=== PATIENT | female | born 1935 | race Caucasian/White ===

== ENCOUNTER → 2016-09-24 | Outpatient (CLI) | payer OTHER ==
[~2016-09-24] MED LIST: ACET-1256 PO; CALCTAB7 PO; CARV3.122 PO; CEFD300C2 PO; CINN1CAP2 PO; CLTP PO; ESTCR PV; FERR325T5 PO; GABA-112 PO; GLC/500 PO; GLC500 PO; GLIP5TAB3 PO; LISI-787 PO; LPT10 PO; METR-162 PO; MULT-190 PO; MULTTAB45 PO; NAPR220T40 PO; OMEP20CA9 PO; PHEN-876 PO; PRLSR20 PO; TRAM-10 PO; TUMS PO; UNKNOWN B/P MED PO; [UNRECOGNIZED DRUG - OTHER] PO
[2016-09-24 12:48] LABS: HEMATOCRIT 31.3 % (37-47); MEAN CELL VOLUME 94.3 fL (80-100); MEAN CORPUSCULAR HEMOGLOBIN 30.7 pg (25-34); MEAN CORPUSCULAR HGB CONC 32.6 g/dl (32-36); MEAN PLATELET VOLUME 10.7 fL (7.4-10.4); PLATELET COUNT 197 K/uL (130-400); RED BLOOD COUNT 3.32 M/uL (4.2-5.4); WHITE BLOOD COUNT 6.65 K/uL (4.8-10.8)
[2016-09-24 13:28] LABS: BLOOD UREA NITROGEN 30 mg/dl (7-18); BUN/CREATININE RATIO 11.1 (10-20); CALCIUM 8.8 mg/dl (8.5-10.1); CARBON DIOXIDE 22 mmol/L (21-32); CHLORIDE 110 mmol/L (98-107); GLUCOSE 212 mg/dl (70-99); POTASSIUM 4.3 mmol/L (3.5-5.1); SODIUM 144 mmol/L (136-145)
[2016-09-24 13:29] LABS: PHOSPHORUS 3.6 mg/dl (2.5-4.9)
== END | disposition home or self-care (01) ==
LOC: C.LABBFT 07:34
PROVIDERS: ATTEND Internal Medicine Nephrology
DX: I12.9 Hypertensive chronic kidney disease with stage 1 through stage 4 chronic kidney disease, or unspecified chronic kidney disease (principal); E11.22 Type 2 diabetes mellitus with diabetic chronic kidney disease; N18.4 Chronic kidney disease, stage 4 (severe); D64.9 Anemia, unspecified; R80.9 Proteinuria, unspecified

== ENCOUNTER → 2016-12-10 | Outpatient (CLI) | payer OTHER ==
[~2016-12-10] MED LIST changes: -CARV3.122 PO; -GABA-112 PO; -LPT10 PO; -METR-162 PO; -TUMS PO
[2016-12-10 14:03] LABS: URINE APPEARANCE TURBID (CLEAR); URINE BILIRUBIN NEG (NEG); URINE COLOR YELLOW; URINE NITRITE NEG (NEG); URINE PH 5.5 (4.5-7.5); URINE SPECIFIC GRAVITY 1.015 (1.000-1.030); UROBILINOGEN NEG (NEG)
[2016-12-10 14:10] LABS: MANUAL MICROSCOPIC REQUIRED? NO; REVIEW REQ? YES
== END | disposition home or self-care (01) ==
LOC: C.LABSPEC 12:44
PROVIDERS: ATTEND Physician Assistant Medical
DX: R39.9 Unspecified symptoms and signs involving the genitourinary system (principal)

== ENCOUNTER → 2016-12-25 | Outpatient (CLI) | payer OTHER ==
[~2016-12-25] MED LIST changes: +CARV3.122 PO; +GABA-112 PO; +LPT10 PO; +METR-162 PO; +TUMS PO
[2016-12-25 13:23] LABS: ESTIMATED AVERAGE GLUCOSE 160 mg/dl; HA1C FLAG Normal (Normal)
== END | disposition home or self-care (01) ==
LOC: C.LABBFT 07:29
PROVIDERS: ATTEND Internal Medicine
DX: E11.9 Type 2 diabetes mellitus without complications (principal)

== ENCOUNTER → 2017-01-19 | Outpatient (CLI) | payer OTHER ==
[2017-01-19 12:22] LABS: HEMATOCRIT 36.6 % (37-47); MEAN CELL VOLUME 93.8 fL (80-100); MEAN CORPUSCULAR HEMOGLOBIN 29.7 pg (25-34); MEAN CORPUSCULAR HGB CONC 31.7 g/dl (32-36); MEAN PLATELET VOLUME 10.4 fL (7.4-10.4); PLATELET COUNT 230 K/uL (130-400); WHITE BLOOD COUNT 6.85 K/uL (4.8-10.8)
[2017-01-19 12:58] LABS: BLOOD UREA NITROGEN 35 mg/dl (7-18); BUN/CREATININE RATIO 13.6 (10-20); CARBON DIOXIDE 28 mmol/L (21-32); CHLORIDE 107 mmol/L (98-107); GLUCOSE 185 mg/dl (70-99); SODIUM 143 mmol/L (136-145)
[2017-01-19 12:59] LABS: PHOSPHORUS 3.1 mg/dl (2.5-4.9)
[2017-01-19 13:04] LABS: URINE PROTIEN/CREAT RATIO 0.5 (0-0.2); URINE TOTAL PROTEIN 21.8 mg/dl (0-11.9)
[2017-01-19 13:08] LABS: CALCIUM 9.7 mg/dl (8.5-10.1)
[2017-01-19 13:34] LABS: URINE APPEARANCE CLOUDY (CLEAR); URINE BILIRUBIN NEG (NEG); URINE COLOR YELLOW; URINE NITRITE NEG (NEG); URINE SPECIFIC GRAVITY 1.011 (1.000-1.030); UROBILINOGEN NEG (NEG)
[2017-01-19 13:41] LABS: MANUAL MICROSCOPIC REQUIRED? NO; REVIEW REQ? NO
== END | disposition home or self-care (01) ==
LOC: C.LABBFT 07:33
PROVIDERS: ATTEND Internal Medicine Nephrology
DX: I12.9 Hypertensive chronic kidney disease with stage 1 through stage 4 chronic kidney disease, or unspecified chronic kidney disease (principal); D64.9 Anemia, unspecified; N18.4 Chronic kidney disease, stage 4 (severe); R80.9 Proteinuria, unspecified

== ENCOUNTER → 2017-02-05 | Outpatient (CLI) | payer OTHER ==
[2017-02-05 14:05] LABS: URINE APPEARANCE CLOUDY (CLEAR); URINE BILIRUBIN NEG (NEG); URINE COLOR YELLOW; URINE EPITHELIAL CELL AUTO 20-30 /lpf (0-5); URINE NITRITE NEG (NEG); UROBILINOGEN NEG (NEG)
[2017-02-05 14:09] LABS: MANUAL MICROSCOPIC REQUIRED? NO; REVIEW REQ? NO
== END | disposition home or self-care (01) ==
LOC: C.LABSPEC 12:20
PROVIDERS: ATTEND Obstetrics & Gynecology
DX: R39.15 Urgency of urination (principal)

== ENCOUNTER → 2017-03-26 | Outpatient (CLI) | payer OTHER ==
[~2017-03-26] MED LIST changes: -CARV3.122 PO; -GABA-112 PO; -LPT10 PO; -METR-162 PO; -TUMS PO
[2017-03-26 13:13] LABS: URINE APPEARANCE TURBID (CLEAR); URINE BILIRUBIN NEG (NEG); URINE COLOR YELLOW; URINE EPITHELIAL CELL AUTO 20-30 /lpf (0-5); URINE NITRITE NEG (NEG); URINE PH 5.5 (4.5-7.5); URINE SPECIFIC GRAVITY 1.018 (1.000-1.030); UROBILINOGEN NEG (NEG)
[2017-03-26 13:25] LABS: MANUAL MICROSCOPIC REQUIRED? NO; REVIEW REQ? NO
== END | disposition home or self-care (01) ==
LOC: C.LABSPEC 12:27
PROVIDERS: ATTEND Internal Medicine
DX: R39.9 Unspecified symptoms and signs involving the genitourinary system (principal)

== ENCOUNTER → 2017-04-10 | Outpatient (CLI) | payer OTHER ==
--- NOTE | 2017-04-10 12:19 | MAMMOGRAPHY REPORT ---
BILATERAL DIGITAL SCREENING MAMMOGRAM WITH CAD: 04/10/2017 CLINICAL HISTORY: Routine screening. Patient has no complaints. TECHNIQUE: Bilateral CC and MLO views were obtained. Current study was also evaluated with a Compute r Aided Detection (CAD) system. COMPARISON: Comparison is made to exams dated: 04/08/2016 mammogram, 04/05/2015 mammogram, 04/07/2014 m ammogram, 04/03/2014 mammogram, 03/31/2013 mammogram, and 03/25/2012 mammogram - [facility]ter. BREAST COMPOSITION: There are scattered areas of fibroglandular density in both breasts. FINDINGS: There is a stable benign coarse calcification in the right breast. No suspicious mass, arc hitectural distortion or cluster of microcalcifications is seen. IMPRESSION: ACR BI-RADS CATEGORY 1: NEGATIVE There is no mammographic evidence of malignancy. A 1 year screening mammogram is recommended. The pa tient will receive written notification of the results. Approximately 10% of breast cancers are not detected with mammography. A negative mammographic report should not delay biopsy if a clinically suggestive mass is present. Farheen Sandoval M.D. ay/:04/10/2017 08:25:11 Torch Straightener: Ana LLANOS(R)(M), [facility] letter sent: Normal 1/2 BI-RADS Code: ACR BI-RADS Category 1: Negative
== END | disposition home or self-care (01) ==
LOC: C.MAMM 07:17
PROVIDERS: ATTEND Internal Medicine
DX: Z12.31 Encounter for screening mammogram for malignant neoplasm of breast (principal)

== ENCOUNTER 2017-04-12 21:06 | Emergency (ER) | payer OTHER ==
[~2017-04-12] VITALS: Ht 170.2 cm; Wt 69.0 kg
[~2017-04-12 21:06] MED LIST changes: -ACET-1256 PO; -CALCTAB7 PO; -CEFD300C2 PO; -GLC/500 PO; -MULT-190 PO; -OMEP20CA9 PO; -PHEN-876 PO; -UNKNOWN B/P MED PO
[2017-04-12 21:11] VITALS: TEMP 36.6; Ht 170.2 cm; Wt 69.0 kg
[2017-04-12] MEDS ORDERED: PHENAZOPYRIDINE HCL 200 MG TAB PO STA (21:13)
[2017-04-12] MEDS ORDERED: ACETAMINOPHEN 500 MG TAB PO STA (21:17)
--- NOTE | 2017-04-12 21:25 | EMERGENCY ROOM VISIT NOTE ---
History Report prepared by Janell: Mu Sparks Under the Supervision of: Dr. Bob George M.D. First contact with patient: 21:12 Chief Complaint: URINARY SYMPTOMS Stated Complaint: URGENCY TO URINATE - BURNING History of Present Illness The patient is an 82 year old female who presents to the Emergency Room with complaints of worsening burning with urination. The patient states that she has been experiencing urinary symptoms for the past month, but notes that it has significantly worsened over the past five days. The patient was diagnosed with a urinary tract infection on March 26 and was given a 5 day prescription of Ciprofloxacin. There was relief during the course of the antibiotic. She started to experience the burning again shortly after the prescription was finished. She denies any associated back pains, fevers, or vomiting. The patient has a history of a prolapsed bladder. Source of History: patient Onset: 5 days (worsening) Position: other (Genitorurinary) Quality: burning Timing: worsening Associated Symptoms: No vomiting, No back pain Review of Systems See HPI for pertinent positives & negatives. A total of 10 systems reviewed and were otherwise negative. Past Medical & Surgical Medical Problems: (1) Hypertension Diabetes Hypertension Family History Cancer Social History Alcohol Use: none Drug Use: none Housing Status: lives alone Occupation Status: retired Current/Historical Medications Scheduled Acetaminophen (Tylenol), 500-1,000 MG PO QAM Calcium Carbonate-Vitamin D W/ (Caltrate 600 Plus), 1 TAB PO DAILY Cefdinir (Omnicef), 300 MG PO Q12H Ferrous Sulfate (Ferrous Sulfate), 1 TAB PO BID Glipizide (Glucotrol), 10 MG PO BID Metformin Hcl (Glucophage), 500 MG PO DAILY Multiple Vitamin (Multiple Vitamin), 1 TAB PO DAILY Ocuvite Preservision (Ocuvite Preservision), 1 TAB PO BID Omeprazole (Prilosec), 20 MG PO DAILY [Unknown B/P Med], 5 MG PO DAILY Scheduled PRN Phenazopyridine HCl (Pyridium), 200 MG PO TID PRN for Frequency/Burning w/ Urination Tramadol (Ultram), 50 MG PO Q12 PRN for Pain Allergies Coded Allergies: Cephalexin (Verified Allergy, Mild, DIARRHEA, 04/12/17) Physical Exam Vital Signs Date Time Temp Pulse Resp B/P (MAP) Pulse Ox O2 Delivery O2 Flow Rate FiO2 04/12/17 22:29 83 16 156/93 95 Room Air 04/12/17 21:11 36.6 78 18 213/107 96 Room Air Physical Exam GENERAL: Patient is in no acute distress. HEENT: No acute trauma, normocephalic atraumatic, mucous membranes moist, no nasal congestion, no scleral icterus. NECK: No stridor, no adenopathy, no meningismus, trachea is midline. LUNGS: Clear to auscultation bilaterally, no wheeze, no rhonchi, breath sounds equal. HEART: Without murmurs gallops or rubs, regular rate and rhythm. ABDOMEN: Soft, Mildly tender over the bladder, no obvious bladder distention, bowel sounds positive, no hernias, no peritonitis. BACK: No flank discomfort to percussion. EXTREMITIES: No cyanosis or edema, full range of motion of all the joints without pain or difficulty, no signs for acute trauma. NEUROLOGIC: Oriented x 3, no acute motor or sensory deficits, no focal weakness. SKIN: No rash, no jaundice, no diaphoresis. Medical Decision & Procedures ER Provider Diagnostic Interpretation: URINARY SPECIMEN DIP: Urine dip was positive for nitrates, leukocytes, and blood. Consistent with a urinary tract infection. BLADDER SCAN: Bladder Scan reveals 175 mL. Consistent with mild retention. Laboratory Results Test 04/12/17 21:20 Urine Color DK YELLOW Urine Appearance TURBID (CLEAR) Urine pH 6.5 (4.5-7.5) Urine Specific [place]pton 1.014 (1.000-1.030) Urine Protein 2+ (NEG) Urine Glucose (UA) NEG (NEG) Urine Ketones NEG (NEG) Urine Occult Blood 2+ (NEG) Urine Nitrite POS (NEG) Urine Bilirubin NEG (NEG) Urine Urobilinogen NEG (NEG) Urine Leukocyte Esterase LARGE (NEG) Urine WBC (Auto) >30 /hpf (0-5) Urine RBC (Auto) 10-30 /hpf (0-4) Urine Hyaline Casts (Auto) /lpf (0-5) Urine Epithelial Cells (Auto) 10-20 /lpf (0-5) Urine Bacteria (Auto) 4+ (NEG) Urine Pathogenic Casts /lpf (0) Urine Yeast (Auto) (NONE PRSENT) Laboratory results reviewed by me. Medications Administered Medications (Trade) Dose Ordered Sig/Taryn Route Start Time Stop Time Status Last Admin Dose Admin Phenazopyridine HCl (Pyridium Tab) 200 mg NOW STAT PO 04/12/17 21:13 04/12/17 21:16 DC 04/12/17 21:37 200 MG Acetaminophen (Tylenol Tab) 1,000 mg NOW STAT PO 04/12/17 21:17 04/12/17 21:19 DC 04/12/17 21:37 1,000 MG Ceftriaxone Sodium (Rocephin Im) 500 mg NOW ONCE IM 04/12/17 21:30 04/12/17 21:31 DC 04/12/17 21:38 500 MG ED Course 2113: The patient was evaluated in room C12. A complete history and physical exam was performed. 2112: Ordered Pyridium 200 mg PO. 2116: Ordered Tylenol 1000 mg PO. 2129: Ordered Rocephin 500 mg IM. 2343: Reevaluated the patient. Discussed results and discharge instructions: She verbalized understanding and agreement. The patient is ready for discharge. Medical Decision Differential Diagnosis includes; Bladder infection, pyelonephritis, urinary retention, diverticulitis, failed outpatient treatment, dysuria The patient presents with urinary complaints. Her urine does show evidence for infection, urine culture is pending. Bladder scan did not show significant urinary retention. She was not toxic or febrile, there was no flank pain and she had not been vomiting. The patient received oral Pyridium, she was given oral Tylenol. She was given IM ceftriaxone to start treatment for the UTI. Of note, the patient is listing Keflex as an allergy however, the allergy is diarrhea, I do think she can have cephalosporins. Patient is being discharged on Omnicef twice a day for 10 days. Hydration was encouraged, Pyridium is going to be used for the burning. She will use Tylenol for pain. She can return for fever, vomiting or if not improving. Medication Reconcilliation Current Medication List: was personally reviewed by me Blood Pressure Screening Patient's blood pressure: Elevated blood pressure Blood pressure disposition: Elevated BP felt to be situational Impression Primary Impression: UTI (urinary tract infection) Scribe Attestation The scribe's documentation has been prepared under my direction and personally reviewed by me in its entirety. I confirm that the note above accurately reflects all work, treatment, procedures, and medical decision making performed by me. Departure Information Dispostion Home / Self-Care Prescriptions Phenazopyridine HCl (Pyridium) 200 Mg Tab 200 MG PO TID Y for Frequency/Burning w/Urination, #9 TAB Prov: Bob George M.D. 04/12/17 Cefdinir (OMNICEF) 300 Mg Cap 300 MG PO Q12H for 10 Days, #20 CAP Prov: Bob George M.D. 04/12/17 Referrals Jada Camargo M.D. (PCP) Forms HOME CARE DOCUMENTATION FORM, IMPORTANT VISIT INFORMATION Patient Instructions My [facility] Additional Instructions omnicef 2x per day for 10 days stay well hydrated pyridium 3x per day for 3 days tylenol for pain return for fever, vomiting or if not improving see meka woo this week for a recheck see clinical documentation developer about the bladder prolapse
[2017-04-12] MEDS ORDERED: CEFTRIAXONE SOD 350MG/ML 1 GM VIAL IM ONE (21:30)
[2017-04-12] MEDS ORDERED: ACET-1256 PO (21:47)
[2017-04-12] MEDS ORDERED: CALCTAB7 PO (21:47)
[2017-04-12] MEDS ORDERED: UNKNOWN B/P MED PO (21:47)
[2017-04-12] MEDS ORDERED: GLC/500 PO (21:47)
[2017-04-12] MEDS ORDERED: OMEP20CA9 PO (21:47)
[2017-04-12] MEDS ORDERED: MULT-190 PO (21:47)
[2017-04-12 21:55] LABS: URINE APPEARANCE TURBID (CLEAR); URINE BILIRUBIN NEG (NEG); URINE COLOR DK YELLOW; URINE NITRITE POS (NEG); URINE PH 6.5 (4.5-7.5); URINE SPECIFIC GRAVITY 1.014 (1.000-1.030); UROBILINOGEN NEG (NEG)
[2017-04-12 22:29] VITALS: BP 156/93; PULSE 83; O2SAT 95
[2017-04-12 22:30] LABS: MANUAL MICROSCOPIC REQUIRED? NO; REVIEW REQ? YES
[2017-04-12] MEDS ORDERED: PHEN-876 PO (22:47)
[2017-04-12] MEDS ORDERED: CEFD300C2 PO (22:47)
== END 2017-04-12 22:58 | disposition home or self-care (01) ==
LOC: C.EDB 21:07 → C.EDC 22:58
DX: N39.0 Urinary tract infection, site not specified (principal); I10 Essential (primary) hypertension; E11.9 Type 2 diabetes mellitus without complications

== ENCOUNTER → 2017-04-29 | Outpatient (CLI) | payer OTHER ==
[~2017-04-29] MED LIST changes: +ACET-1256 PO; +CALCTAB7 PO; -CINN1CAP2 PO; -CLTP PO; -ESTCR PV; +GLC/500 PO; -GLC500 PO; -LISI-787 PO; +MULT-190 PO; -NAPR220T40 PO; +OMEP20CA9 PO; +PHEN-876 PO; -PRLSR20 PO; +UNKNOWN B/P MED PO; -[UNRECOGNIZED DRUG - OTHER] PO
[2017-04-29 17:38] LABS: HEMATOCRIT 31.5 % (37-47); MEAN CELL VOLUME 98.1 fL (80-100); MEAN CORPUSCULAR HEMOGLOBIN 30.5 pg (25-34); MEAN CORPUSCULAR HGB CONC 31.1 g/dl (32-36); MEAN PLATELET VOLUME 10.4 fL (7.4-10.4); PLATELET COUNT 253 K/uL (130-400); RED BLOOD COUNT 3.21 M/uL (4.2-5.4)
[2017-04-29 17:47] LABS: BLOOD UREA NITROGEN 37 mg/dl (7-18); BUN/CREATININE RATIO 15.3 (10-20); CARBON DIOXIDE 25 mmol/L (21-32); CHLORIDE 110 mmol/L (98-107); GLUCOSE 204 mg/dl (70-99); POTASSIUM 4.2 mmol/L (3.5-5.1); SODIUM 141 mmol/L (136-145)
[2017-04-29 17:48] LABS: PHOSPHORUS 3.4 mg/dl (2.5-4.9)
== END | disposition home or self-care (01) ==
LOC: C.LABBFT 12:05
PROVIDERS: ATTEND Internal Medicine Nephrology
DX: I10 Essential (primary) hypertension (principal); D64.9 Anemia, unspecified; N18.4 Chronic kidney disease, stage 4 (severe); R80.9 Proteinuria, unspecified

== ENCOUNTER → 2017-04-30 | Outpatient (CLI) | payer OTHER ==
[2017-04-30 14:25] LABS: URINE APPEARANCE CLEAR (CLEAR); URINE BILIRUBIN NEG (NEG); URINE COLOR YELLOW; URINE EPITHELIAL CELL AUTO 20-30 /lpf (0-5); URINE NITRITE NEG (NEG); URINE PH 6.5 (4.5-7.5); URINE SPECIFIC GRAVITY 1.013 (1.000-1.030); UROBILINOGEN NEG (NEG)
[2017-04-30 14:31] LABS: MANUAL MICROSCOPIC REQUIRED? NO; REVIEW REQ? NO
== END | disposition home or self-care (01) ==
LOC: C.LABSPEC 12:27
PROVIDERS: ATTEND Internal Medicine Nephrology
DX: I12.9 Hypertensive chronic kidney disease with stage 1 through stage 4 chronic kidney disease, or unspecified chronic kidney disease (principal); D64.9 Anemia, unspecified; N18.4 Chronic kidney disease, stage 4 (severe); R80.9 Proteinuria, unspecified

== ENCOUNTER → 2017-06-19 | Outpatient (CLI) | payer OTHER ==
[2017-06-19 12:54] LABS: URINE APPEARANCE CLOUDY (CLEAR); URINE BILIRUBIN NEG (NEG); URINE COLOR YELLOW; URINE NITRITE NEG (NEG); URINE SPECIFIC GRAVITY 1.013 (1.000-1.030); UROBILINOGEN NEG (NEG)
[2017-06-19 12:58] LABS: MANUAL MICROSCOPIC REQUIRED? NO; REVIEW REQ? NO
== END | disposition home or self-care (01) ==
LOC: C.LABBFT 08:11
PROVIDERS: ATTEND Physician Assistant Medical
DX: R39.9 Unspecified symptoms and signs involving the genitourinary system (principal); R39.15 Urgency of urination

== ENCOUNTER → 2017-07-01 | Outpatient (CLI) | payer OTHER ==
[2017-07-01 12:11] LABS: URINE APPEARANCE TURBID (CLEAR); URINE BILIRUBIN NEG (NEG); URINE COLOR YELLOW; URINE EPITHELIAL CELL AUTO 20-30 /lpf (0-5); URINE NITRITE NEG (NEG); URINE PH 6.5 (4.5-7.5); UROBILINOGEN NEG (NEG)
[2017-07-01 12:13] LABS: MANUAL MICROSCOPIC REQUIRED? NO; REVIEW REQ? YES
[2017-07-01 12:24] LABS: ESTIMATED AVERAGE GLUCOSE 146 mg/dl; HA1C FLAG Normal (Normal)
[2017-07-01 12:47] LABS: CHOLESTEROL/HDL RATIO 3.5; FERRITIN 115.9 ng/ml (8.0-388.0)
== END | disposition home or self-care (01) ==
LOC: C.LABBFT 07:35
PROVIDERS: ATTEND Internal Medicine
DX: D64.9 Anemia, unspecified (principal); N18.4 Chronic kidney disease, stage 4 (severe); R80.9 Proteinuria, unspecified; I12.9 Hypertensive chronic kidney disease with stage 1 through stage 4 chronic kidney disease, or unspecified chronic kidney disease

== ENCOUNTER → 2017-08-17 | Outpatient (CLI) | payer OTHER ==
[~2017-08-17] MED LIST changes: +CARV3.122 PO; +GABA-112 PO; -GLC/500 PO; +LPT10 PO; -OMEP20CA9 PO; -PHEN-876 PO; +TUMS PO; -UNKNOWN B/P MED PO
[2017-08-17 12:10] LABS: HEMATOCRIT 34.8 % (37-47); MEAN CELL VOLUME 93.8 fL (80-100); MEAN CORPUSCULAR HEMOGLOBIN 31.3 pg (25-34); MEAN CORPUSCULAR HGB CONC 33.3 g/dl (32-36); MEAN PLATELET VOLUME 10.4 fL (7.4-10.4); PLATELET COUNT 176 K/uL (130-400); RED BLOOD COUNT 3.71 M/uL (4.2-5.4); WHITE BLOOD COUNT 9.29 K/uL (4.8-10.8)
[2017-08-17 12:33] LABS: BLOOD UREA NITROGEN 29 mg/dl (7-18); BUN/CREATININE RATIO 12.1 (10-20); CALCIUM 8.7 mg/dl (8.5-10.1); CARBON DIOXIDE 21 mmol/L (21-32); CHLORIDE 106 mmol/L (98-107); CREATININE 2.38 mg/dl (0.60-1.20); GLUCOSE 329 mg/dl (70-99); PHOSPHORUS 2.6 mg/dl (2.5-4.9); POTASSIUM 3.6 mmol/L (3.5-5.1); SODIUM 136 mmol/L (136-145)
[2017-08-17 12:40] LABS: URINE APPEARANCE TURBID (CLEAR); URINE BILIRUBIN NEG (NEG); URINE COLOR YELLOW; URINE EPITHELIAL CELL AUTO >30 /lpf (0-5); URINE NITRITE POS (NEG); URINE PH 6.5 (4.5-7.5); URINE SPECIFIC GRAVITY 1.014 (1.000-1.030); UROBILINOGEN NEG (NEG); ZZUR CULT IF INDIC CLEAN CATCH YES
[2017-08-17 12:43] LABS: BETA-HYDROXYBUTYRATE 2.25 mg/dL (0.2-2.81)
[2017-08-17 12:43] LABS: MANUAL MICROSCOPIC REQUIRED? NO; REVIEW REQ? YES
[2017-08-17 12:44] LABS: URINE PROTIEN/CREAT RATIO 2.8 (0-0.2); URINE TOTAL PROTEIN 114.4 mg/dl (0-11.9)
== END | disposition home or self-care (01) ==
LOC: C.LABBFT 07:41
PROVIDERS: ATTEND Internal Medicine Nephrology
DX: I12.9 Hypertensive chronic kidney disease with stage 1 through stage 4 chronic kidney disease, or unspecified chronic kidney disease (principal); R80.9 Proteinuria, unspecified; D64.9 Anemia, unspecified; N18.4 Chronic kidney disease, stage 4 (severe)

== ENCOUNTER → 2017-09-07 | Outpatient (CLI) | payer OTHER ==
[2017-09-07 12:37] LABS: URINE APPEARANCE TURBID (CLEAR); URINE BILIRUBIN NEG (NEG); URINE COLOR YELLOW; URINE NITRITE POS (NEG); URINE SPECIFIC GRAVITY 1.014 (1.000-1.030); UROBILINOGEN NEG (NEG); ZZUR CULT IF INDIC CLEAN CATCH YES
[2017-09-07 12:43] LABS: MANUAL MICROSCOPIC REQUIRED? NO; REVIEW REQ? YES
== END | disposition home or self-care (01) ==
LOC: C.LABBFT 08:32
PROVIDERS: ATTEND Physician Assistant Medical
DX: N39.0 Urinary tract infection, site not specified (principal)

== ENCOUNTER → 2017-09-29 | Outpatient (CLI) | payer OTHER | END | disposition home or self-care (01) | LOC: C.LABSPEC 17:20 | PROVIDERS: ATTEND Obstetrics & Gynecology | DX: N39.0 Urinary tract infection, site not specified (principal) ==

== ENCOUNTER → 2017-12-29 | Outpatient (CLI) | payer OTHER ==
[2017-12-29 12:48] LABS: HEMOGLOBIN A1C 7.8 % (4.5-5.6)
== END | disposition home or self-care (01) ==
LOC: C.LABBFT 07:27
PROVIDERS: ATTEND Internal Medicine
DX: E11.9 Type 2 diabetes mellitus without complications (principal)

== ENCOUNTER → 2018-04-12 | Outpatient (CLI) | payer OTHER ==
[~2018-04-12] MED LIST changes: +MULT-1018 PO; -MULTTAB45 PO; +POLY335019 PO
--- NOTE | 2018-04-13 07:31 | MAMMOGRAPHY REPORT ---
BILATERAL DIGITAL SCREENING MAMMOGRAM TOMOSYNTHESIS WITH CAD: 04/12/2018 CLINICAL HISTORY: Routine screening. Patient has no complaints. TECHNIQUE: The study was acquired using full field digital technology and interpreted from soft copy. Breast tomosynthesis in addition to standard 2D mammography was performed. Current study was also ev aluated with a Computer Aided Detection (CAD) system. COMPARISON: Comparison is made to exams dated: 04/10/2017 mammogram, 04/08/2016 mammogram, 04/05/2015 m ammogram, 04/07/2014 mammogram, 04/03/2014 mammogram, and 03/31/2013 mammogram - [facility] enter. BREAST COMPOSITION: There are scattered areas of fibroglandular density in both breasts. FINDINGS: There is a benign coarse calcification in the right upper outer quadrant. No suspicious mas s, architectural distortion or cluster of microcalcifications is seen. IMPRESSION: ACR BI-RADS CATEGORY 1: NEGATIVE There is no mammographic evidence of malignancy. A 1 year screening mammogram is recommended.( 019) The patient will receive written notification of the results. Some breast cancers are not detected with mammography. A negative mammographic report should not shemar y biopsy if a clinically suggestive mass is present. Farheen Sandoval M.D. ay/:04/12/2018 17:08:26 Business Services Assistant: RT Augusto(Tommy)(M), [facility] letter sent: Normal 1/2 BI-RADS Code: ACR BI-RADS Category 1: Negative
== END | disposition home or self-care (01) ==
LOC: C.MAMM 09:48
PROVIDERS: ATTEND Obstetrics & Gynecology
DX: Z12.31 Encounter for screening mammogram for malignant neoplasm of breast (principal)

== ENCOUNTER → 2018-04-20 | Outpatient (CLI) | payer OTHER | LOC: C.LABBFT 08:25 | PROVIDERS: ATTEND Nurse Practitioner | DX: R39.9 Unspecified symptoms and signs involving the genitourinary system (principal) ==

== ENCOUNTER 2020-03-25 17:45 | Observation (INO) ==
[2020-03-25] MEDS ORDERED: SODIUM CHLORIDE 0.9% 500 ML IV SCH (18:15)
--- NOTE | 2020-03-25 18:16 | Emergency Department Note ---
Impression & Plan Chest pain, Urinary tract infection, Hypomagnesemia, Premature ventricular contractions (PVCs) (VPCs), Heart palpitations ED Provider Note NAME: DIMITRIS FLORES AGE: 85 SEX: F : 1935 ARRIVES VIA: Walk-In INFORMANT: Patient, patient's son ED PROVIDER(S): Efren Huerta DO CHIEF COMPLAINT: Palpitations HPI: The patient is an 85-year-old female who presented to the emergency department with her son for an evaluation of palpitations. The patient has been experiencing palpitations over the last 1 to 2 days. The patient states that she has a pounding feeling in her chest she describes it as a heaviness. She also describes having generalized weakness. She denies having any lower extremity pain or swelling. She denies having any headaches. She has had no fevers or travel. She denies having any cough but does complain of dyspnea on exertion. She states her pain is mild at this time. She did not take any medication for her pain. She states that she is never had pain similar to this in the past. She states that she has no recent falls or injuries. Additional history is obtained from the patient's son. He is very concerned because the patient has been confused lately. He states that she will have episodes where she does not know where she is at. She also called him today to come over to the house to review her medications which were all spread out. He does not feel that she took her medications inappropriately. He states that over the last 6 months she has had some changes to her blood pressure medication and was started on a medication for anxiety approximately 1 month ago. The patient also c omplains of dysuria and frequency. She has a history of frequent UTIs. ROS: See above HPI for pertinent positives & negatives. A total of 10 systems reviewed and were otherwise negative. PAST MEDICAL HISTORY: See Below PAST SURGICAL HISTORY: See Below FAMILY HISTORY: See Below SOCIAL HISTORY: See Below HOME MEDICATIONS: See Below ALLERGIES: See Below VITALS: See Below PHYSICAL EXAMINATION: GENERAL: Patient is awake alert in no acute distress patient is resting comf ortably and showing no signs of anxiety EYES: The conjunctivae are clear. The pupils are round and reactive. EARS, NOSE, MOUTH AND THROAT: The nose is without any evidence of any deformity. NECK: The neck is nontender and supple. RESPIRATORY: Normal respiratory effort is noted there is no evidence of wheezing rhonchi or rales CARDIOVASCULAR: Ectopy was noted to auscultation. There is no definite murmur. GASTROINTESTINAL: The abdomen is soft. Abdomen is nontender. MUSCULOSKELETAL/EXTREMITIES: There is no evidence of gross deformity full range of motion is noted in the hips and shoulders. SKIN: There is no obvious evidence of any rash. There are no petechiae, pallor or cyanosis noted. NEUROLOGIC: Patient is awake alert and oriented to person place and situation. Strength was symmetric. There is no facial droop. MEDICAL DECISION MAKING: The patient is an 85-year-old female who presented to the emergency department with her son for an evaluation of chest pain and palpitations. The patient has some early dementia according to her son. He is very concerned about the patient living at home because she takes her own medications and lives alone. The patient was found to have signs of urinary tract infection on urinalysis. She was treated with IV antibiotics. The patient was also found to have PVCs on her work-up. I discussed the patient's laboratory and radiographic studies with her and her son. I also discussed her case with the on-call [facility] hospitalist. Given the patient's findings it may be prudent for the patient to be managed as an inpatient initially until she starts to improve and then determination could be made as to the patient's living situation. Triage Nursing notes reviewed. Prior medical records reviewed Vital Signs: reviewed and remarkable for elevated blood pressure. Differential diagnosis: Premature contractions, electrolyte abnormality, cardiac dysrhythmia, thyroid dysfunction, pulmonary embolism, infection, gastrointestinal, as well as other pathologies. ER treatment provided: See below Diagnostics interpreted by me: ECG: EKG was obtained in the emergency department. My interpretation is sinus rhythm at 70 bpm. PVCs were noted. LVH was noted by voltage criteria. There was no acute ST segment abnormalities noted. This was compared to a tracing from February 27, 2011. PVCs are new however no other significant changes were appreciated. Cardiac Monitoring: An order was placed for continuous cardiac monitoring. The monitor shows a rate of 80 with sinus rhythm. Laboratory studies: As stated above and show below. Imaging studies: See below Consultation(s): I discussed this case with Dr. Colunga. He is agreed to evaluate the patient in the emergency department for further management and disposition. 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) Rectocele (Chronic) Retinopathy (Chronic) Stage 4 chronic kidney disease (Chronic) Type 2 diabetes mellitus (Chronic) Vitamin D deficiency (Chronic) Surgical History H/O vaginal surgery colpoplexy vaginal approach History of bladder surgery History of dilatation and curettage History of rotator cuff surgery S/P appendectomy S/P hysterectomy Family History Mother Breast cancer Father Cancer Social History Preferred Language: Chinese Communication Ability: Effective 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 Beliefs That Will Affect Care: None marital status: / Current Living Situation: Alone Other Information That Helps Us Care for You: No Feels Safe at Home: Yes Safety Concerns: Feels Safe At This Time Smoking Status: Former smoker Do You Dip or Chew Tobacco: No ; Second Hand Exposure: No ; Tobacco Cessation Education Requested by Patient: No Hx Alcohol Use: Yes Alcohol type: beer Hx Substance Use: No Sunscreen Use: No Allergies Allergies Allergy/AdvReac Type Severity Reaction Status Date / Time cephalexin Allergy Mild DIARRHEA Verified 03/25/20 18:19 Home Meds Home Medications Medication Instructions Recorded Confirmed acetaminophen 500 mg tablet See Rx Instructions .ROUTE 05/18/19 03/25/20 .COMPLEX tab ferrous fumarate 325 mg (106 mg 325 mg PO DAILY tab 05/18/19 03/25/20 iron) tablet vit A,C and [id number] 1 tab PO BID 05/18/19 03/25/20 1,000 unit-C 200 mg-E 60 unit-lutein 2 mg and minerals tablet ascorbic acid (vitamin C) [Vitamin 1 g PO DAILY 03/25/20 03/25/20 C] ascorbic acid-vitamin E-biotin 1 tab PO DAILY 03/25/20 03/25/20 [Hair, Skin, Nails with Biotin] calcium carbonate-vitamin D3 1 tab PO BID 03/25/20 03/25/20 [Caltrate 600 plus D] Previous Rx's Medication Instructions Recorded amlodipine 2.5 mg tablet 2.5 mg PO BID #60 tab 11/07/19 carvedilol 3.125 mg tablet 3.125 mg PO BID #60 tab 11/14/19 glipizide 5 mg tablet 5 mg PO BID #60 tab 01/11/20 atorvastatin 10 mg tablet 10 mg PO DAILY #30 tab 01/13/20 sertraline 25 mg tablet 25 mg PO DAILY #30 tab 02/01/20 Results & Data (ED) Vital Signs Vital Signs - 24 hr 03/25/20 17:51 03/25/20 18:38 03/25/20 18:40 Temperature 36.9 C Temperature Source Oral Pulse Rate 77 65 Pulse Rate from SpO2 Sensor 63 Respiratory Rate 20 15 Respiratory Effort / Characteristics Non-Labored Spontaneous Respiratory Depth Normal Respiratory Pattern Regular Blood Pressure 144/84 H 154/71 H Blood Pressure Mean 104 95 Blood Pressure Position Sitting Pulse Oximetry 97 98 96 Oxygen Delivery Method Room Air Room Air Sepsis Recent Fever Within 48 Hours No Sepsis Action Taken by Nursing No Action Required 03/25/20 19:02 03/25/20 19:30 03/25/20 20:00 Temperature Temperature Source Pulse Rate 81 73 64 Pulse Rate from SpO2 Sensor 68 74 66 Respiratory Rate 24 19 19 Respiratory Effort / Characteristics Respiratory Depth Respiratory Pattern Blood Pressure 162/109 H 142/90 H 150/82 H Blood Pressure Mean 130 97 117 Blood Pressure Position Pulse Oximetry 96 98 97 Oxygen Delivery Method Room Air Room Air Room Air Sepsis Recent Fever Within 48 Hours Sepsis Action Taken by Nursing 03/25/20 20:30 03/25/20 21:03 Temperature Temperature Source Pulse Rate 67 68 Pulse Rate from SpO2 Sensor 70 66 Respiratory Rate 16 22 Respiratory Effort / Characteristics Respiratory Depth Respiratory Pattern Blood Pressure 141/77 H 141/73 H Blood Pressure Mean 99 112 Blood Pressure Position Pulse Oximetry 97 98 Oxygen Delivery Method Room Air Room Air Sepsis Recent Fever Within 48 Hours Sepsis Action Taken by Alf Medications Current Medication List: was personally reviewed by me Laboratory Data Result diagrams: 03/25/20 18:17 07/05/20 18:17 Lab Results 03/25/20 03/25/20 03/25/20 Range/Units 18:17 18:17 18:17 WBC 7.66 (4.8-10.8) K/uL RBC 4.26 (4.2-5.4) M/uL Hgb 13.7 (12.0-16.0) g/dL Hct 38.6 (37-47) % MCV 90.6 (80-100) fL MCH 32.2 (25-34) pg MCHC 35.5 (32-36) g/dL RDW Std Deviation 43.3 (36.4-46.3) fL RDW Coeff of Andreia 13.1 (11.5-14.5) % Plt Count 232 (130-400) K/uL MPV 9.4 (7.4-10.4) fL Immature Gran % (Auto) 0.1 % Neut % (Auto) 58.6 % Lymph % (Auto) 23.9 % [place] % (Auto) 14.0 % Eos % (Auto) 2.9 % Baso % (Auto) 0.5 % Neut # (Auto) 4.49 (1.4-6.5) K/uL Lymph # (Auto) 1.83 (1.2-3.4) K/uL [place] # (Auto) 1.07 H (0.11-0.59) K/uL Eos # (Auto) 0.22 (0-0.5) K/uL Baso # (Auto) 0.04 (0-0.2) K/uL Immature Gran # (Auto) 0.01 (0.00-0.02) K/uL PT Cancelled INR Cancelled APTT Cancelled PTT Ratio Cancelled Sodium 135 L (136-145) mmol/L Potassium 3.4 L (3.5-5.1) mmol/L Chloride 101 (98-107) mmol/L Carbon Dioxide 24 (21-32) mmol/L Anion Gap 10.0 (3-11) BUN 16 (7-18) mg/dl Creatinine 1.62 H (0.6-1.2) mg/dl Est Cr Clr Drug Dosing 21.1 ml/min Est GFR ( Amer) 33.0 Est GFR (Non-Af Amer) 28.4 BUN/Creatinine Ratio 10.0 (10-20) Glucose 150 H (70-99) mg/dl Calcium 10.2 H (8.5-10.1) mg/dl Magnesium 1.6 L (1.8-2.4) mg/dl Total Bilirubin 0.6 (0.2-1) mg/dl AST 16 (15-37) U/L ALT 28 (12-78) U/L Alkaline Phosphatase 79 (45-117) U/L Troponin I < 0.015 (0-0.045) ng/ml Total Protein 8.2 (6.4-8.2) gm/dl Albumin 4.1 (3.4-5.0) gm/dl Globulin 4.1 H (2.5-4.0) gm/dl Albumin/Globulin Ratio 1.0 (0.9-2) TSH 1.140 (0.300-4.500) uIu/ml Urine Color Urine Appearance (Clear) Urine pH (4.5-7.5) Ur Specific [place] (1.000-1.030) Urine Protein (Negative) Urine Glucose (UA) (Negative) Urine Ketones (Negative) Urine Blood (Negative) Urine Nitrite (Negative) Urine Bilirubin (Negative) Urine Urobilinogen (Negative) Ur Leukocyte Esterase (Negative) Urine WBC (Auto) (0-5) /hpf Urine RBC (Auto) (0-4) /hpf U Hyaline Cast (Auto) (0-5) /lpf U Epithel Cells (Auto) (0-5) /lpf Urine Bacteria (Auto) (Negative) 03/25/20 Range/Units 18:57 WBC (4.8-10.8) K/uL RBC (4.2-5.4) M/uL Hgb (12.0-16.0) g/dL Hct (37-47) % MCV (80-100) fL MCH (25-34) pg MCHC (32-36) g/dL RDW Std Deviation (36.4-46.3) fL RDW Coeff of Andreia (11.5-14.5) % Plt Count (130-400) K/uL MPV (7.4-10.4) fL Immature Gran % (Auto) % Neut % (Auto) % Lymph % (Auto) % [place] % (Auto) % Eos % (Auto) % Baso % (Auto) % Neut # (Auto) (1.4-6.5) K/uL Lymph # (Auto) (1.2-3.4) K/uL [place] # (Auto) (0.11-0.59) K/uL Eos # (Auto) (0-0.5) K/uL Baso # (Auto) (0-0.2) K/uL Immature Gran # (Auto) (0.00-0.02) K/uL PT INR APTT PTT Ratio Sodium (136-145) mmol/L Potassium (3.5-5.1) mmol/L Chloride (98-107) mmol/L Carbon Dioxide (21-32) mmol/L Anion Gap (3-11) BUN (7-18) mg/dl Creatinine (0.6-1.2) mg/dl Est Cr Clr Drug Dosing ml/min Est GFR ( Amer) Est GFR (Non-Af Amer) BUN/Creatinine Ratio (10-20) Glucose (70-99) mg/dl Calcium (8.5-10.1) mg/dl Magnesium (1.8-2.4) mg/dl Total Bilirubin (0.2-1) mg/dl AST (15-37) U/L ALT (12-78) U/L Alkaline Phosphatase (45-117) U/L Troponin I (0-0.045) ng/ml Total Protein (6.4-8.2) gm/dl Albumin (3.4-5.0) gm/dl Globulin (2.5-4.0) gm/dl Albumin/Globulin Ratio (0.9-2) TSH (0.300-4.500) uIu/ml Urine Color Yellow Urine Appearance Turbid A (Clear) Urine pH 6.5 (4.5-7.5) Ur Specific [place] 1.012 (1.000-1.030) Urine Protein Trace H (Negative) Urine Glucose (UA) Negative (Negative) Urine Ketones Negative (Negative) Urine Blood 1+ H (Negative) Urine Nitrite Negative (Negative) Urine Bilirubin Negative (Negative) Urine Urobilinogen Negative (Negative) Ur Leukocyte Esterase 3+ H (Negative) Urine WBC (Auto) >30 H (0-5) /hpf Urine RBC (Auto) 5-10 H (0-4) /hpf U Hyaline Cast (Auto) 0 (0-5) /lpf U Epithel Cells (Auto) >30 H (0-5) /lpf Urine Bacteria (Auto) 4+ H (Negative) Administered Medications Acetaminophen (Tylenol) 650 mg PO Q4H PRN PRN Reason: pain/fever Stop: 04/24/20 21:58 Last Admin: 03/25/20 23:15 Dose: 650 mg Documented by: [id number] Amlodipine Besylate (Norvasc) 2.5 mg PO BID BRIA Stop: 04/24/20 21:58 Last Admin: 03/25/20 23:15 Dose: 2.5 mg Documented by: [id number] Carvedilol (Coreg) 3.125 mg PO BID BRIA Stop: 04/24/20 21:58 Last Admin: 03/25/20 23:15 Dose: 3.125 mg Documented by: [id number] Discontinued Medications Sodium Chloride (Nss) 500 mls @ 999 mls/hr IV .Q31M BRIA Stop: 03/25/20 18:45 Last Infusion: 03/25/20 18:52 Dose: 0 mls/hr Documented by: [id number] Admin: 03/25/20 18:26 Dose: 999 mls/hr Documented by: [id number] Magnesium Sulfate/Dextrose (Magnesium Sulfate / D5w) 1 gm in 100 mls @ 100 mls/hr IV Q1H BRIA Stop: 03/25/20 21:14 Last Infusion: 03/25/20 21:31 Dose: 0 mls/hr Documented by: [id number] Admin: 03/25/20 20:33 Dose: 100 mls/hr Documented by: [id number] Infusion: 03/25/20 20:33 Dose: 0 mls/hr Documented by: [id number] Admin: 03/25/20 19:30 Dose: 100 mls/hr Documented by: [id number] Piperacillin Sod/Tazobactam Sod (Zosyn) 4.5 gm in 120 mls @ 240 mls/hr IV NOW ONE Stop: 03/25/20 20:24 Last Infusion: 03/25/20 20:33 Dose: 0 mls/hr Documented by: [id number] Admin: 03/25/20 20:03 Dose: 240 mls/hr Documented by: [id number] Insulin Aspart (Novolog Flexpen) 0 units SC ONE ONE Stop: 03/26/20 00:31 Last Admin: 03/26/20 00:30 Dose: 2 units Documented by: [id number] Cosigned by: [id number] Imaging Data Radiologist's Impression: XR chest 1V portable HISTORY: 85 years-old Female weakness acute weakness COMPARISON: Acute abdominal series radiographs 07/18/2017 TECHNIQUE: Portable AP view of the chest FINDINGS: Cardiomediastinal and hilar silhouettes are within normal limits. No pneumothorax, pleural effusion, airspace consolidation or overt pulmonary edema. Degenerative changes of the shoulders and spine. IMPRESSION: No acute process. ACT 112: Negative or not required by law. The above report was generated using voice recognition software. It may contain grammatical, syntax or spelling errors. Electronically signed by: Agustín Guallpa M.D. 03/25/2020 7:01 PM Dictated: 03/25/201854 Transcribed: 03/25/201854 CT head/brain wo con CLINICAL HISTORY: 85 years-old Female with confusion. Acutely altered mental status TECHNIQUE: Multiple axial CT images of the head were obtained without contrast. A dose lowering technique was utilized adhering to the principles of ALARA. CT DOSE: 537.48 mGy.cm COMPARISON: None. FINDINGS: No acute intracranial hemorrhage, midline shift, intracranial mass, hydroceph alus, territorial ischemia or abnormal extra-axial collection. Age-related involutional changes with ex vacuo ventriculomegaly. Mild patchy white matter hypodensities suggest probable chronic microvascular ischemic disease. Cerebral vascular calcifications. Senescent calcifications of the lentiform nuclei. The calvarium is intact. Prior bilateral lens replacement. The paranasal sinuses, mastoid air cells, and middle ear cavities are clear. IMPRESSION: No acute intracranial abnormality. ACT 112: Negative or not required by law. The above report was generated using voice recognition software. It may contain grammatical, syntax or spelling errors. Electronically signed by: Agustín Guallpa M.D. 03/25/2020 6:41 PM Dictated: 03/25/[id number] Transcribed: 03/25/201836 Blood Pressure Blood Pressure Findings: Elevated blood pressure Blood Pressure Disposition: further management by hospitalist Discharge Plan Visit Data *Final* Discharge Date/Time: 03/25/20 21:39 Chief Complaint: Illness Stated Complaint: DIZZY CONFUSED, ISNT EATING RIGHT, POSSIBLE UTI ED Provider: Efren Huerta Discharge Problem: Chest pain, Urinary tract infection, Hypomagnesemia, Premature ventricular contractions (PVCs) (VPCs), Heart palpitations Patient Disposition: Admitted As Inpatient Condition: Good Discharge Instructions Interventions: ED Discharge Assessment Last Done: 03/25/20 21:39
[2020-03-25 18:28] LABS: Basophils # (auto) 0.04 K/uL (0-0.2); Basophils % (auto) 0.5 %; Eosinophils # (auto) 0.22 K/uL (0-0.5); Eosinophils % (auto) 2.9 %; Hematocrit (blood only) 38.6 % (37-47); Hemoglobin 13.7 g/dL (12.0-16.0); Immature Granulocytes # (auto) 0.01 K/uL (0.00-0.02); Immature Granulocytes % (auto) 0.1 %; Lymphocytes # (auto) 1.83 K/uL (1.2-3.4); Lymphocytes % (auto) 23.9 %; Mean Corpuscular Hemoglobin 32.2 pg (25-34); Mean Corpuscular Hgb Conc 35.5 g/dL (32-36); Mean Corpuscular Volume 90.6 fL (80-100); Mean Platelet Volume 9.4 fL (7.4-10.4); Monocytes # (auto) 1.07 K/uL (0.11-0.59); Neutrophils # (auto) 4.49 K/uL (1.4-6.5); Neutrophils % (auto) 58.6 %; Platelet Count 232 K/uL (130-400); RDW Coefficient of Variation 13.1 % (11.5-14.5); RDW Standard Deviation 43.3 fL (36.4-46.3); Red Blood Count 4.26 M/uL (4.2-5.4); White Blood Count 7.66 K/uL (4.8-10.8)
[2020-03-25 18:42] LABS: Alanine Aminotransferase 28 U/L (12-78); Albumin Level 4.1 gm/dl (3.4-5.0); Aspartate Aminotransferase 16 U/L (15-37); Blood Urea Nitrogen 16 mg/dl (7-18); Calcium 10.2 mg/dl (8.5-10.1); Carbon Dioxide 24 mmol/L (21-32); Chloride 101 mmol/L (98-107); Creatinine Clr Calc Pharmacy 21.1 ml/min; Est GFR (Non-African American) 28.4; Glucose 150 mg/dl (70-99); Magnesium 1.6 mg/dl (1.8-2.4); Potassium 3.4 mmol/L (3.5-5.1); Sodium 135 mmol/L (136-145)
--- NOTE | 2020-03-25 18:43 | CT Scan Report ---
CT head/brain wo con CLINICAL HISTORY: 85 years-old Female with confusion. Acutely altered mental status TECHNIQUE: Multiple axial CT images of the head were obtained without contrast. A dose lowering tech nique was utilized adhering to the principles of ALARA. CT DOSE: 537.48 mGy.cm COMPARISON: None. FINDINGS: No acute intracranial hemorrhage, midline shift, intracranial mass, hydrocephalus, territorial ischem ia or abnormal extra-axial collection. Age-related involutional changes with ex vacuo ventriculomegal y. Mild patchy white matter hypodensities suggest probable chronic microvascular ischemic disease. Ce rebral vascular calcifications. Senescent calcifications of the lentiform nuclei. The calvarium is intact. Prior bilateral lens replacement. The paranasal sinuses, mastoid air cells, and middle ear cavities are clear. IMPRESSION: No acute intracranial abnormality. ACT 112: Negative or not required by law. The above report was generated using voice recognition software. It may contain grammatical, syntax o r spelling errors. Electronically signed by: Agustín Guallpa M.D. 03/25/2020 6:41 PM
[2020-03-25 18:52] LABS: Alkaline Phosphatase 79 U/L (45-117); Bilirubin,Total 0.6 mg/dl (0.2-1); Globulin 4.1 gm/dl (2.5-4.0); Total Protein 8.2 gm/dl (6.4-8.2); Troponin I < 0.015 ng/ml (0-0.045)
--- NOTE | 2020-03-25 19:02 | XRay Report ---
XR chest 1V portable HISTORY: 85 years-old Female weakness acute weakness COMPARISON: Acute abdominal series radiographs 07/18/2017 TECHNIQUE: Portable AP view of the chest FINDINGS: Cardiomediastinal and hilar silhouettes are within normal limits. No pneumothorax, pleural effusion, airspace consolidation or overt pulmonary edema. Degenerative changes of the shoulders and spine. IMPRESSION: No acute process. ACT 112: Negative or not required by law. The above report was generated using voice recognition software. It may contain grammatical, syntax o r spelling errors. Electronically signed by: Agustín Guallpa M.D. 03/25/2020 7:01 PM
[2020-03-25 19:16] LABS: Appearance Urine Turbid (Clear); Bacteria Urine Automated 4+ (Negative); Bilirubin Urine Negative (Negative); Blood Urine 1+ (Negative); Cast Urine Automated 0 /lpf (0-5); Color Urine Yellow; Epithelial Cell Urine Auto >30 /lpf (0-5); Glucose Urine UA Negative (Negative); Ketones Urine Negative (Negative); Leukocyte Esterase Urine 3+ (Negative); Nitrite Urine Negative (Negative); Protein Urine Trace (Negative); Specific Gravity Urine 1.012 (1.000-1.030); Urobilinogen Urine Negative (Negative); WBC Urine Automated >30 /hpf (0-5); pH Urine 6.5 (4.5-7.5)
[2020-03-25] MEDS: MAGNESIUM SULFATE / D5W 1 GM/100 ML BAG IV SCH ×2 (19:30→20:33)
[2020-03-25] MEDS ORDERED: PIPERACILL/TAZOBAC CONSULT ACTIVE PRN (19:55)
[2020-03-25] MEDS ORDERED: PIPERACILLIN/TAZOBACTAM 4.5 GM/120 ML BAG IV ONE (19:55)
--- NOTE | 2020-03-25 21:17 | History & Physical Report ---
Date of Service March 25, 2020 Assessment & Plan (1) Urinary tract infection: Aaliyah Perkins is an 85 year old woman here for UTI and confusion UTI Simple, no elevated white count or sepsis/SIRS Treating with ceftriaxone Will rehydrate with IV fluid as patient appears slightly dry on exam Urine culture pending Altered mental status Patient struggling arranging home meds Will get PT/OT and consult case management to discuss home health nursing Patient's son would like to be contacted about this as well or be present for any discussions Primary care provider is concerned about beginnings of dementia DVT PPx: heparin F/E/N: NSS 80 mls/hour Dispo: Admitted for IV abx and rehydration and for PT/OT/Case management evaluation for home health DNR/DNI (2) Hypomagnesemia: (3) Premature ventricular contractions (PVCs) (VPCs): (4) Heart palpitations: (5) Type 2 diabetes mellitus: History of Present Illness Chief Complaint: Weakness Primary Care Provider: Jada Camargo MD Aaliyah Perkins is an 85 year old woman with a past medical history significant for chronic renal disase, frequent UTI's, hypertension, DMII on glipizide, prolapsed bladder and prolapsed rectum history, who presents today with Urinary symptoms and heart palpitations. She tells me she is feeling fine in her usual state of health, however her son says that she has been more conused over the last few days and that she has been having keeping track of her pills. When he went over to her house because of his concern over the phone he found her weekly pill container upended. No extra pills had been taken on census of the pills remaining but she was clearly more confused than usual. She then endorsed that she had been having urinary symptoms for the past three or four days with increased frequency of urination and burning. She is oriented to person place time and situation for the most part although she thought today was the march not yesterday. She tells me she does not have any chest pain but occasionally feels like her chest skips a beat she tells me she has had this sensation off an on for years. On presentation to the ED patient's vitals are WNL apart from some hypertension, her labwork is remarkable for a urinalysis indicative of UTI with bacteria, leuk esterase and 1+ blood. She also has an elevated creatinine of 1.6 which appears to be below her baseline. Her renal function has been slowly improving for some time from stage IV renal disease. Chest X ray and Head CT were negative. Patient was given one dose of zosyn and 500 mls bolus of cyrstalloid. At present she is resting comfortably, her son is very concerned about her wellbeing at home alone and would like to discuss the possibility of home health nursing to help abigail nize her medications a few times per week. Patient lives alone, does not smoke, or drink, her about 20 years ago. She wishes to be DNR/DNI. Allergies Allergy/AdvReac Type Severity Reaction Status Date / Time cephalexin Allergy Mild DIARRHEA Verified 03/25/20 18:19 Home Medications Home Medications Medication Instructions Recorded Confirmed Type acetaminophen 500 mg tablet See Rx Instructions .ROUTE 05/18/19 03/25/20 History .COMPLEX tab ferrous fumarate 325 mg (106 mg 325 mg PO DAILY tab 05/18/19 03/25/20 History iron) tablet vit A,C and [id number] 1 tab PO BID 05/18/19 03/25/20 History 1,000 unit-C 200 mg-E 60 unit-lutein 2 mg and minerals tablet amlodipine 2.5 mg tablet 2.5 mg PO BID #60 tab 11/07/19 03/25/20 Rx carvedilol 3.125 mg tablet 3.125 mg PO BID #60 tab 11/14/19 03/25/20 Rx glipizide 5 mg tablet 5 mg PO BID #60 tab 01/11/20 03/25/20 Rx atorvastatin 10 mg tablet 10 mg PO DAILY #30 tab 01/13/20 03/25/20 Rx sertraline 25 mg tablet 25 mg PO DAILY #30 tab 02/01/20 03/25/20 Rx ascorbic acid (vitamin C) [Vitamin 1 g PO DAILY 03/25/20 03/25/20 History C] ascorbic acid-vitamin E-biotin 1 tab PO DAILY 03/25/20 03/25/20 History [Hair, Skin, Nails with Biotin] calcium carbonate-vitamin D3 1 tab PO BID 03/25/20 03/25/20 History [Caltrate 600 plus D] 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) Rectocele (Chronic) Retinopathy (Chronic) Stage 4 chronic kidney disease (Chronic) Type 2 diabetes mellitus (Chronic) Vitamin D deficiency (Chronic) Surgical History H/O vaginal surgery colpoplexy vaginal approach History of bladder surgery History of dilatation and curettage History of rotator cuff surgery S/P appendectomy S/P hysterectomy Family History Mother Breast cancer Father Cancer Social History Preferred Language: [place] Communication Ability: Effective Scientific Writer Required: No Beliefs That Will Affect Care: None marital status: / Current Living Situation: Alone Other Information That Helps Us Care for You: No Feels Safe at Home: Yes Safety Concerns: Feels Safe At This Time Smoking Status: Former smoker Do You Dip or Chew Tobacco: No ; Second Hand Exposure: No ; Tobacco Cessation Education Requested by Patient: No Hx Alcohol Use: Yes Alcohol type: beer Hx Substance Use: No Sunscreen Use: No Review of Systems Constitutional: + fatigue; no fever, no chills and no body aches Eyes: no problem reported Ear, Nose, Mouth, Throat: no problem reported Respiratory: no cough and no dyspnea Cardiovascular: no chest pain, no dyspnea and no dyspnea on exertion Gastrointestinal: no abdominal pain, no nausea and no vomiting Genitourinary: + dysuria and + urinary frequency Neurologic: no unsteadiness, no falls and no localized weakness Physical Exam Constitutional: well developed; no acute distress, not ill appearing and no altered mental status Eyes: PERRL, conjunctivae normal, anicteric sclerae ENMT: external ear and nose normal, oropharynx normal Respiratory: normal respiratory effort, lungs clear to auscultation Cardiovascular: RRR, no murmur, no edema Heart Sounds: no click, no gallop, no murmur and no cardiac rub Vessels: dorsalis pedis pulses present Extremities: no calf tenderness and no pedal edema Gastrointestinal (Abdomen): Inspection/Auscultation: abdomen normal to inspection and normal bowel sounds; abdomen not distended Percussion/Palpation: + abdomen tender (mild tenderness to palpation to suprapub ic region) and abdomen soft; no guarding Skin: no rashes, warm and dry Neurologic: PERRL, EOMI, accommodation nl, no face palsy, no dysarthria Results & Data Results & Data ([facility]) Vital Signs (Past 12 Hours) Vital Signs Temp Pulse Resp BP Pulse Ox 03/25/20 20:30 67 16 141/77 H 97 03/25/20 20:00 64 19 150/82 H 97 03/25/20 19:30 73 19 142/90 H 98 03/25/20 19:02 81 24 162/109 H 96 03/25/20 18:40 96 03/25/20 18:38 65 15 154/71 H 98 03/25/20 17:51 36.9 C 77 20 144/84 H 97 Code Status & VTE Plan VTE Prophylaxis Plan VTE Prophylaxis will be ordered: Yes Supervising Physician Co-Signing Physician Notes Attending addendum: I have physically seen this patient, have supervised the medical residents activities, and agree with the H&P unless as otherwise noted. Assessment and Plan: Urinary tract infection- Follow urine culture and sensitivity Empiric antibiotic treatment with ceftriaxone IV NSS at 80 mils per hour Chronic kidney disease stage III- Creatinine 1.62 upon admission, with range 1.73-2.49. Follow with serial laboratories. For potassium 3.4, give Klor-Con 40 mEq p.o. x1. For magnesium 1.6, give magnesium sulfate 2 g IV. Follow serial laboratories. Diabetes mellitus- Placed on Accu-Cheks before meals and at bedtime with NovoLog coverage for scale. Hold glipizide 5 mg p.o. twice daily Check hemoglobin A1c Remainder of orders and notations as noted Resident Activity Tracking Resident Involvement: Resident Care Provided Care Provided: Adult Hospital Medicine (1) Urinary tract infection Hematuria presence: without hematuria Urinary tract infection type: site unspecified Qualified Code(s): N39.0 - Urinary tract infection, site not specified
[2020-03-25] MEDS ORDERED: ONDANSETRON INJ 2 MG/ML 2 ML VIAL IV PRN (21:59)
[2020-03-25] MEDS ORDERED: POLYETHYLENE (MIRALAX) 17 GM PACK PO PRN (21:59)
[2020-03-25] MEDS: AMLODIPINE BESYLATE 5 MG TAB PO SCH (23:15)
[2020-03-25] MEDS: carvediloL 3.125 MG TAB PO SCH (23:15)
[2020-03-25] MEDS: ACETAMINOPHEN 325 MG TAB PO PRN (23:15)
[2020-03-25] MEDS ORDERED: DEXTROSE 50% 50 ML SYRINGE IV PRN (23:37)
[2020-03-25] MEDS ORDERED: DC ALL PREVIOUSLY ORDERED DIABETES MEDS ONE (23:37)
[2020-03-25] MEDS ORDERED: GLUCOSE 40% GEL 15 GM TUBE PO PRN (23:37)
[2020-03-25] MEDS ORDERED: GLUCAGON FOR INJ 1 MG VIAL SQ PRN (23:37)
[2020-03-25] MEDS ORDERED: CARBOHYDRATES FOR HYPOGLYCEMIA PO PRN (23:37)
[2020-03-25] MEDS ORDERED: GLUCOSE 10 TABS/TUBE PO PRN (23:37)
[2020-03-26] MEDS ORDERED: INSULIN ASPART 100 UNITS/ML 3 ML PEN SC ONE (00:30)
[2020-03-26] MEDS ORDERED: SODIUM CHLORIDE 0.9% 1000ML 1,000 ML IV SCH (04:15)
[2020-03-26] MEDS: ATORVASTATIN 10 MG TAB PO SCH (07:58)
[2020-03-26] MEDS: AMLODIPINE BESYLATE 5 MG TAB PO SCH ×2 (07:58→19:51)
[2020-03-26] MEDS: SERTRALINE HCL 50 MG TABLET PO SCH (07:58)
[2020-03-26] MEDS: ASCORBIC ACID 500 MG TAB PO SCH (07:59)
[2020-03-26] MEDS: HEPARIN SOD 5,000 UNIT/0.5 ML VIAL SQ SCH ×2 (07:59→21:14)
[2020-03-26] MEDS: CALCIUM 600MG + VIT D 400 IU TAB PO SCH ×2 (07:59→19:51)
[2020-03-26] MEDS: CEROVITE ADV FORMULA TAB PO SCH ×2 (07:59→19:53)
[2020-03-26] MEDS ORDERED: PNEUMOCOCCAL Polysaccharide Vaccine 25mcg/0.5mL vial/Syr IM ONE (08:00)
[2020-03-26] MEDS: INSULIN ASPART 100 UNITS/ML 3 ML PEN SC SCH ×4 (08:02→21:13)
[2020-03-26] MEDS: cefTRIAXone SODIUM 2,000 MG in DEXTROSE 5% 50 ML IV SCH (08:06)
[2020-03-26] MEDS: carvediloL 3.125 MG TAB PO SCH ×2 (08:45→19:46)
[2020-03-26] MEDS ORDERED: NON-FORMULARY MEDICATION (Ascorbic Acid-Vitamin E-Biotin [Hair, Skin, Nails With Biotin] 1 PO SCH (09:00)
[2020-03-26] MEDS ORDERED: FERROUS FUMARATE 325 MG PO SCH (09:00)
[2020-03-26 09:09] LABS: Basophils # (auto) 0.03 K/uL (0-0.2); Basophils % (auto) 0.5 %; Eosinophils # (auto) 0.23 K/uL (0-0.5); Eosinophils % (auto) 3.6 %; Hematocrit (blood only) 35.1 % (37-47); Hemoglobin 11.7 g/dL (12.0-16.0); Immature Granulocytes # (auto) 0.01 K/uL (0.00-0.02); Immature Granulocytes % (auto) 0.2 %; Lymphocytes % (auto) 22.2 %; Mean Corpuscular Hgb Conc 33.3 g/dL (32-36); Mean Corpuscular Volume 93.1 fL (80-100); Mean Platelet Volume 9.5 fL (7.4-10.4); Monocytes # (auto) 0.78 K/uL (0.11-0.59); Monocytes % (auto) 12.3 %; Neutrophils # (auto) 3.87 K/uL (1.4-6.5); Neutrophils % (auto) 61.2 %; Platelet Count 224 K/uL (130-400); RDW Coefficient of Variation 13.4 % (11.5-14.5); RDW Standard Deviation 45.3 fL (36.4-46.3); Red Blood Count 3.77 M/uL (4.2-5.4); White Blood Count 6.32 K/uL (4.8-10.8)
[2020-03-26 09:51] LABS: BUN Creatinine Ratio 9.5 (10-20); Calcium 8.7 mg/dl (8.5-10.1); Creatinine Clr Calc Pharmacy 24.5 ml/min; Est GFR (African American) 35.9; Potassium 3.6 mmol/L (3.5-5.1)
--- NOTE | 2020-03-26 15:07 | Hospitalist Progress Note ---
Date of Service March 26, 2020 Assessment & Plan (1) Urinary tract infection: Aaliyah Perkins is an 85 year old woman here for UTI and confusion. UTI -Simple, no elevated white count or sepsis/SIRS -Treating with ceftriaxone -Will rehydrate with IV fluid as patient appears slightly dry on exam -Urine culture with gram neg bacilli thus far . Sensitivities to follow. -Previous culture from December 2019 growing alpha strep not enterococcus, gamma strep not enterococcus. Culture from July 2018 growing E. coli, which was pansensitive. Altered mental status -Patient struggling arranging home meds -Will get PT/OT and consult case management to discuss home health nursing. PT recs return home when able -Patient's son would like to be contacted about this as well or be present for any discussions -Primary care provider is concerned about beginnings of dementia DVT PPx: heparin F/E/N: DM2 Diet DNR/DNI Dispo: Admitted for IV abx and rehydration and PT/OT. Appreciate CM assistance. Call out to [facility] for availability (2) Stage 4 chronic kidney disease: (3) Hypertension: (4) Acute metabolic encephalopathy: Admission and Anticipated Discharge Date Admission Date: March 25, 2020 Supervising Physician Co-Signing Physician Notes Resident Physician Supervision Note & Attestation: Pt seen & examined, chart reviewed, care plan d/w PGY3 Dr Koko Locke. I agree w/ the walsh components of his documentation. 85yo female w/ HTN - presented with confusion and evidence of UTI. During my rounds patient feeling better today. She herself notes that "I knew I was confused" but this is also better today. Knew she was in hospital and that it was 2019. Eating well. Had firm, hard small bowel movement this am. Exam - gen - NAD mouth - MMM heart - RRR, s1 s2 lungs - CTA b/l abd - soft NT; mildly. distended especially lower abdomen ext - no edema A/P: 1. UTI - 2nd GNR - cont rocephin; await final cx 2. CKD stage 4 - Cr stable today; bmp in am. 3. metabolic encephalopathy - 2nd to #1 - improving. 4. constipation - add bowel regimen. PT eval hopefully can return home - probably tomorrow Grzegorz Jay MD Subjective 85-year-old female found this a.m. in bed in no acute distress. No acute overnight events. Patient notes that urinary symptoms of frequency and burning improved. Patient tolerating p.o. intake. Patient with no other acute concerns or complaints. Review of Systems Review of Systems: All systems reviewed & are unremarkable except as noted in HPI & below Physical Exam Constitutional: WD/WN, vitals as above Eyes: PERRL, conjunctivae normal, anicteric sclerae ENMT: external ear and nose normal, oropharynx normal Respiratory: normal respiratory effort, lungs clear to auscultation Cardiovascular: RRR, no murmur, no edema Gastrointestinal (Abdomen): normal bowel sounds, soft, nontender, no hepatosplenomegaly Percussion/Palpation: + abdomen tender (mild ttp suprapubic ) Skin: no rashes, warm and dry Psychiatric: A+Ox3, euthymic affect Results & Data Results & Data ([facility]) Vital Signs (Past 12 Hours) Vital Signs Temp Pulse Resp BP Pulse Ox 03/26/20 08:43 72 03/26/20 07:55 36.6 C 51 L 18 130/69 97 Laboratory Results Laboratory Results - last 24 hr 03/25/20 03/25/20 03/25/20 18:17 18:17 18:17 WBC 7.66 RBC 4.26 Hgb 13.7 Hct 38.6 MCV 90.6 MCH 32.2 MCHC 35.5 RDW Std Deviation 43.3 RDW Coeff of Andreia 13.1 Plt Count 232 MPV 9.4 Immature Gran % (Auto) 0.1 Neut % (Auto) 58.6 Lymph % (Auto) 23.9 [place] % (Auto) 14.0 Eos % (Auto) 2.9 Baso % (Auto) 0.5 Neut # (Auto) 4.49 Lymph # (Auto) 1.83 [place] # (Auto) 1.07 H Eos # (Auto) 0.22 Baso # (Auto) 0.04 Immature Gran # (Auto) 0.01 PT Cancelled INR Cancelled APTT Cancelled PTT Ratio Cancelled Sodium 135 L Potassium 3.4 L Chloride 101 Carbon Dioxide 24 Anion Gap 10.0 BUN 16 Creatinine 1.62 H Est Cr Clr Drug Dosing 21.1 Est GFR ( Amer) 33.0 Est GFR (Non-Af Amer) 28.4 BUN/Creatinine Ratio 10.0 Glucose 150 H POC Glucose Calcium 10.2 H Magnesium 1.6 L Total Bilirubin 0.6 AST 16 ALT 28 Alkaline Phosphatase 79 Troponin I < 0.015 Total Protein 8.2 Albumin 4.1 Globulin 4.1 H Albumin/Globulin Ratio 1.0 TSH 1.140 Urine Color Urine Appearance Urine pH Ur Specific Marquez Urine Protein Urine Glucose (UA) Urine Ketones Urine Blood Urine Nitrite Urine Bilirubin Urine Urobilinogen Ur Leukocyte Esterase Urine WBC (Auto) Urine RBC (Auto) U Hyaline Cast (Auto) U Epithel Cells (Auto) Urine Bacteria (Auto) 03/25/20 03/26/20 03/26/20 18:57 00:22 07:40 WBC RBC Hgb Hct MCV MCH MCHC RDW Std Deviation RDW Coeff of Andreia Plt Count MPV Immature Gran % (Auto) Neut % (Auto) Lymph % (Auto) [place] % (Auto) Eos % (Auto) Baso % (Auto) Neut # (Auto) Lymph # (Auto) [place] # (Auto) Eos # (Auto) Baso # (Auto) Immature Gran # (Auto) PT INR APTT PTT Ratio Sodium Potassium Chloride Carbon Dioxide Anion Gap BUN Creatinine Est Cr Clr Drug Dosing Est GFR ( Amer) Est GFR (Non-Af Amer) BUN/Creatinine Ratio Glucose POC Glucose 190 H 125 H Calcium Magnesium Total Bilirubin AST ALT Alkaline Phosphatase Troponin I Total Protein Albumin Globulin Albumin/Globulin Ratio TSH Urine Color Yellow Urine Appearance Turbid A Urine pH 6.5 Ur Specific Marquez 1.012 Urine Protein Trace H Urine Glucose (UA) Negative Urine Ketones Negative Urine Blood 1+ H Urine Nitrite Negative Urine Bilirubin Negative Urine Urobilinogen Negative Ur Leukocyte Esterase 3+ H Urine WBC (Auto) >30 H Urine RBC (Auto) 5-10 H U Hyaline Cast (Auto) 0 U Epithel Cells (Auto) >30 H Urine Bacteria (Auto) 4+ H 03/26/20 03/26/20 03/26/20 08:38 08:38 11:30 WBC 6.32 RBC 3.77 L Hgb 11.7 L Hct 35.1 L MCV 93.1 MCH 31.0 MCHC 33.3 RDW Std Deviation 45.3 RDW Coeff of Andreia 13.4 Plt Count 224 MPV 9.5 Immature Gran % (Auto) 0.2 Neut % (Auto) 61.2 Lymph % (Auto) 22.2 [place] % (Auto) 12.3 Eos % (Auto) 3.6 Baso % (Auto) 0.5 Neut # (Auto) 3.87 Lymph # (Auto) 1.40 [place] # (Auto) 0.78 H Eos # (Auto) 0.23 Baso # (Auto) 0.03 Immature Gran # (Auto) 0.01 PT INR APTT PTT Ratio Sodium 139 Potassium 3.6 Chloride 106 Carbon Dioxide 27 Anion Gap 6.0 BUN 14 Creatinine 1.51 H Est Cr Clr Drug Dosing 24.5 Est GFR ( Amer) 35.9 Est GFR (Non-Af Amer) 31.0 BUN/Creatinine Ratio 9.5 L Glucose 155 H POC Glucose 141 H Calcium 8.7 Magnesium Total Bilirubin AST ALT Alkaline Phosphatase Troponin I Total Protein Albumin Globulin Albumin/Globulin Ratio TSH Urine Color Urine Appearance Urine pH Ur Specific Marquez Urine Protein Urine Glucose (UA) Urine Ketones Urine Blood Urine Nitrite Urine Bilirubin Urine Urobilinogen Ur Leukocyte Esterase Urine WBC (Auto) Urine RBC (Auto) U Hyaline Cast (Auto) U Epithel Cells (Auto) Urine Bacteria (Auto) Medications Administered Current Inpatient Medications Acetaminophen (Tylenol) 650 mg PO Q4H PRN PRN Reason: pain/fever Stop: 04/24/20 21:58 Last Admin: 03/25/20 23:15 Dose: 650 mg Documented by: Amlodipine Besylate (Norvasc) 2.5 mg PO BID [facility] Stop: 04/24/20 21:58 Last Admin: 03/26/20 07:58 Dose: 2.5 mg Documented by: Ascorbic Acid (Vitamin C) 1,000 mg PO DAILY [facility] Stop: 04/25/20 08:59 Last Admin: 03/26/20 07:59 Dose: 1,000 mg Documented by: Atorvastatin Calcium (Lipitor) 10 mg PO DAILY [facility] Stop: 04/25/20 08:59 Last Admin: 03/26/20 07:58 Dose: 10 mg Documented by: Carvedilol (Coreg) 3.125 mg PO BID [facility] Stop: 04/24/20 21:58 Last Admin: 03/26/20 08:45 Dose: 3.125 mg Documented by: Dextrose (Dextrose 50%) 25 - 50 ml IV UD PRN; Protocol PRN Reason: Hypoglycemia Protocol Stop: 04/24/20 23:36 Glucagon (Glucagen) 1 mg SQ UD PRN; Protocol PRN Reason: Hypoglycemia Protocol Stop: 04/24/20 23:36 Glucose (Dex4 Glucose) 4 - 8 tabs PO UD PRN; Protocol PRN Reason: Hypoglycemia Protocol Stop: 04/24/20 23:36 Glucose (Glucose 40%) 15 - 30 gm PO UD PRN; Protocol PRN Reason: Hypoglycemia Protocol Stop: 04/24/20 23:36 Heparin Sodium (Porcine) (Heparin Sodium (Porcine)) 5,000 units SQ Q12 [facility] Stop: 04/25/20 08:59 Last Admin: 03/26/20 07:59 Dose: 5,000 units Documented by: Ceftriaxone Sodium 2,000 mg/ (Dextrose) 70 mls @ 100 mls/hr IV Q24H [facility]RI[facility]; Protocol Stop: 03/31/20 07:59 Last Infusion: 03/26/20 08:48 Dose: Infused Documented by: Sodium Chloride (Nss 1000ml) 1,000 mls @ 80 mls/hr IV .[id number] [facility] Stop: 04/25/20 04:14 Last Admin: 03/26/20 04:59 Dose: 80 mls/hr Documented by: Insulin Aspart (Novolog Flexpen) 0 units SC ACHS [facility] Stop: 04/25/20 07:29 Last Admin: 03/26/20 11:59 Dose: 7 units Documented by: Miscellaneous (Carbohydrates For Hypoglycemia) 15 - 30 gm PO UD PRN PRN Reason: Hypoglycemia Protocol Stop: 04/24/20 23:36 Multivitamins/Minerals (Caltrate Plus) 1 tab PO BID [facility] Stop: 04/25/20 08:59 Last Admin: 03/26/20 07:59 Dose: 1 tab Documented by: Multivitamins/Minerals (Multivitamin W/ Minerals Tab) 1 tab PO BID [facility] Stop: 04/25/20 08:59 Last Admin: 03/26/20 07:59 Dose: 1 tab Documented by: Ondansetron HCl (Zofran) 4 mg IV Q6H PRN PRN Reason: Nausea Stop: 04/24/20 21:58 Polyethylene Glycol (Miralax Powder Packet) 17 gm PO DAILY PRN PRN Reason: Constipation Stop: 04/24/20 21:58 Sertraline HCl (Zoloft) 25 mg PO DAILY [facility] Stop: 04/25/20 08:59 Last Admin: 03/26/20 07:58 Dose: 25 mg Documented by: Resident Activity Tracking Resident Involvement: Resident Care Provided Care Provided: Adult Hospital Medicine (1) Urinary tract infection Hematuria presence: without hematuria Urinary tract infection type: site unspecified Qualified Code(s): N39.0 - Urinary tract infection, site not specified
[2020-03-26] MEDS: ACETAMINOPHEN 325 MG TAB PO PRN (19:45)
--- NOTE | 2020-03-26 22:36 | Billing Data ---
Date of Service March 26, 2020 Coding Level of Care Code 30090 Initial Inpt Care Lvl 2
[2020-03-26] MEDS ORDERED: ALUMINUM/MAGNESIUM SUSP 30 ML UDC PO STA (23:37)
--- NOTE | 2020-03-27 06:00 | Electrocardiogram Report ---
Test Reason : Blood Pressure : / mmHG Vent. Rate : 070 BPM Atrial Rate : 070 BPM P-R Int : 172 ms QRS Dur : 120 ms QT Int : 378 ms P-R-T Axes : 057 -51 064 degrees QTc Int : 408 ms Sinus rhythm with occasional Premature ventricular complexes and Premature atrial complexes Left anterior fascicular block Left ventricular hypertrophy with QRS widening and repolarization abnormality Abnormal ECG When compared with ECG of 27-FEB-2011 22:12, Premature ventricular complexes are now Present Premature atrial complexes are now Present QRS duration has increased Confirmed by Raman Salas ([id number]) on 03/27/2020 6:00:20 AM Referred By: REFERRED SELF Confirmed By:Raman Salas
[2020-03-27 06:12] LABS: Basophils # (auto) 0.05 K/uL (0-0.2); Basophils % (auto) 0.9 %; Eosinophils # (auto) 0.26 K/uL (0-0.5); Eosinophils % (auto) 4.7 %; Hematocrit (blood only) 36.1 % (37-47); Hemoglobin 12.1 g/dL (12.0-16.0); Immature Granulocytes # (auto) 0.01 K/uL (0.00-0.02); Immature Granulocytes % (auto) 0.2 %; Lymphocytes # (auto) 1.71 K/uL (1.2-3.4); Lymphocytes % (auto) 30.8 %; Mean Corpuscular Hemoglobin 31.1 pg (25-34); Mean Corpuscular Hgb Conc 33.5 g/dL (32-36); Mean Corpuscular Volume 92.8 fL (80-100); Mean Platelet Volume 9.4 fL (7.4-10.4); Monocytes # (auto) 0.86 K/uL (0.11-0.59); Monocytes % (auto) 15.5 %; Neutrophils # (auto) 2.66 K/uL (1.4-6.5); Neutrophils % (auto) 47.9 %; Platelet Count 231 K/uL (130-400); RDW Coefficient of Variation 13.6 % (11.5-14.5); Red Blood Count 3.89 M/uL (4.2-5.4); White Blood Count 5.55 K/uL (4.8-10.8)
--- NOTE | 2020-03-27 06:28 | Billing Data ---
Date of Service March 26, 2020 Coding Level of Care Code 69328 Subseq Hosp Care Lvl 2
[2020-03-27 06:51] LABS: BUN Creatinine Ratio 12.9 (10-20); Est GFR (African American) 35.1; Est GFR (Non-African American) 30.2
[2020-03-27] MEDS: cefTRIAXone SODIUM 2,000 MG in DEXTROSE 5% 50 ML IV SCH (08:10)
[2020-03-27] MEDS: CALCIUM 600MG + VIT D 400 IU TAB PO SCH (08:11)
[2020-03-27] MEDS: HEPARIN SOD 5,000 UNIT/0.5 ML VIAL SQ SCH (08:11)
[2020-03-27] MEDS: INSULIN ASPART 100 UNITS/ML 3 ML PEN SC SCH ×2 (08:11→12:09)
[2020-03-27] MEDS: AMLODIPINE BESYLATE 5 MG TAB PO SCH (08:11)
[2020-03-27] MEDS: SERTRALINE HCL 50 MG TABLET PO SCH (08:11)
[2020-03-27] MEDS: carvediloL 3.125 MG TAB PO SCH (08:11)
[2020-03-27] MEDS: CEROVITE ADV FORMULA TAB PO SCH (08:11)
[2020-03-27] MEDS: ASCORBIC ACID 500 MG TAB PO SCH (08:11)
[2020-03-27] MEDS: ATORVASTATIN 10 MG TAB PO SCH (08:11)
--- NOTE | 2020-03-27 10:56 | Hospitalist Progress Note ---
Date of Service March 27, 2020 Assessment & Plan (1) Urinary tract infection: Aaliyah Perkins is an 85 year old woman here for UTI and confusion. The following was the medical management during stay here: UTI -Simple, no elevated white count or sepsis/SIRS -Urine culture Grew E. coli, pansensitive. -Treated with ceftriaxone. Will treat with PO Bactrim on discharge. -Hydrated with IV fluid This admission. Patient encouraged to continue p.o. hydration on discharge -Previous culture from December 2019 growing alpha strep not enterococcus, gamma strep not enterococcus. Culture from July 2018 growing E. coli, which was pansensitive. -Creatinine stable this admission. 1.54 on day of discharge Altered mental status -Secondary to above -Patient struggling arranging home meds - PT/OT and consult case management to discuss home health nursing--PT recs return home when able. Home health through [facility] set up for discharge. -Primary care provider is concerned about beginnings of dementia. Can follow-up as an outpatient DVT PPx: heparin . At time of discharge patient with no other acute concerns or complaints. Admission and Anticipated Discharge Date Admission Date: March 26, 2020 Subjective 85-year-old female found this a.m. in bed in no acute distress. No acute overnight events. Patient notes that urinary symptoms of frequency and burning improved. Patient tolerating p.o. intake. Patient notes cognition improved. Patient with no other acute concerns or complaints. Review of Systems Review of Systems: All systems reviewed & are unremarkable except as noted in HPI & below Physical Exam Constitutional: WD/WN, vitals as above Eyes: PERRL, conjunctivae normal, anicteric sclerae ENMT: external ear and nose normal, oropharynx normal Respiratory: normal respiratory effort, lungs clear to auscultation Cardiovascular: RRR, no murmur, no edema Gastrointestinal (Abdomen): normal bowel sounds, soft, nontender, no hepatosplenomegaly Percussion/Palpation: + abdomen tender (mild ttp suprapubic ) Skin: no rashes, warm and dry Psychiatric: A+Ox3, euthymic affect Results & Data Results & Data ([facility]) Vital Signs (Past 12 Hours) Vital Signs Temp Pulse Resp BP Pulse Ox 03/27/20 08:07 36.5 C 69 20 144/82 H 97 03/26/20 23:00 37 C 64 18 157/75 H 96 Laboratory Results Laboratory Results - last 24 hr 03/26/20 03/26/20 03/26/20 11:30 16:40 20:52 WBC RBC Hgb Hct MCV MCH MCHC RDW Std Deviation RDW Coeff of Andreia Plt Count MPV Immature Gran % (Auto) Neut % (Auto) Lymph % (Auto) [place] % (Auto) Eos % (Auto) Baso % (Auto) Neut # (Auto) Lymph # (Auto) [place] # (Auto) Eos # (Auto) Baso # (Auto) Immature Gran # (Auto) Sodium Potassium Chloride Carbon Dioxide Anion Gap BUN Creatinine Est Cr Clr Drug Dosing Est GFR ( Amer) Est GFR (Non-Af Amer) BUN/Creatinine Ratio Glucose POC Glucose 141 H 140 H 148 H Calcium 03/27/20 03/27/20 03/27/20 06:02 06:02 07:51 WBC 5.55 RBC 3.89 L Hgb 12.1 Hct 36.1 L MCV 92.8 MCH 31.1 MCHC 33.5 RDW Std Deviation 46.0 RDW Coeff of Andreia 13.6 Plt Count 231 MPV 9.4 Immature Gran % (Auto) 0.2 Neut % (Auto) 47.9 Lymph % (Auto) 30.8 [place] % (Auto) 15.5 Eos % (Auto) 4.7 Baso % (Auto) 0.9 Neut # (Auto) 2.66 Lymph # (Auto) 1.71 [place] # (Auto) 0.86 H Eos # (Auto) 0.26 Baso # (Auto) 0.05 Immature Gran # (Auto) 0.01 Sodium 141 Potassium 4.0 Chloride 108 H Carbon Dioxide 26 Anion Gap 7.0 BUN 20 H Creatinine 1.54 H Est Cr Clr Drug Dosing 24.0 Est GFR ( Amer) 35.1 Est GFR (Non-Af Amer) 30.2 BUN/Creatinine Ratio 12.9 Glucose 171 H POC Glucose 197 H Calcium 9.0 Medications Administered Current Inpatient Medications Acetaminophen (Tylenol) 650 mg PO Q4H PRN PRN Reason: pain/fever Stop: 04/24/20 21:58 Last Admin: 03/26/20 19:45 Dose: 650 mg Documented by: Amlodipine Besylate (Norvasc) 2.5 mg PO BID BRIA Stop: 04/24/20 21:58 Last Admin: 03/27/20 08:11 Dose: 2.5 mg Documented by: Ascorbic Acid (Vitamin C) 1,000 mg PO DAILY BRIA Stop: 04/25/20 08:59 Last Admin: 03/27/20 08:11 Dose: 1,000 mg Documented by: Atorvastatin Calcium (Lipitor) 10 mg PO DAILY BRIA Stop: 04/25/20 08:59 Last Admin: 03/27/20 08:11 Dose: 10 mg Documented by: Carvedilol (Coreg) 3.125 mg PO BID BRIA Stop: 04/24/20 21:58 Last Admin: 03/27/20 08:11 Dose: 3.125 mg Documented by: Dextrose (Dextrose 50%) 25 - 50 ml IV UD PRN; Protocol PRN Reason: Hypoglycemia Protocol Stop: 04/24/20 23:36 Glucagon (Glucagen) 1 mg SQ UD PRN; Protocol PRN Reason: Hypoglycemia Protocol Stop: 04/24/20 23:36 Glucose (Dex4 Glucose) 4 - 8 tabs PO UD PRN; Protocol PRN Reason: Hypoglycemia Protocol Stop: 04/24/20 23:36 Glucose (Glucose 40%) 15 - 30 gm PO UD PRN; Protocol PRN Reason: Hypoglycemia Protocol Stop: 04/24/20 23:36 Heparin Sodium (Porcine) (Heparin Sodium (Porcine)) 5,000 units SQ Q12 BRIA Stop: 04/25/20 08:59 Last Admin: 03/27/20 08:11 Dose: 5,000 units Documented by: Ceftriaxone Sodium 2,000 mg/ (Dextrose) 70 mls @ 100 mls/hr IV Q24H [facility] [place]; Protocol Stop: 03/31/20 07:59 Last Infusion: 03/27/20 09:37 Dose: Infused Documented by: Insulin Aspart (Novolog Flexpen) 0 units SC ACHS [facility] Stop: 04/25/20 07:29 Last Admin: 03/27/20 08:11 Dose: 7 units Documented by: Miscellaneous (Carbohydrates For Hypoglycemia) 15 - 30 gm PO UD PRN PRN Reason: Hypoglycemia Protocol Stop: 04/24/20 23:36 Multivitamins/Minerals (Caltrate Plus) 1 tab PO BID [facility] Stop: 04/25/20 08:59 Last Admin: 03/27/20 08:11 Dose: 1 tab Documented by: Multivitamins/Minerals (Multivitamin W/ Minerals Tab) 1 tab PO BID [facility] Stop: 04/25/20 08:59 Last Admin: 03/27/20 08:11 Dose: 1 tab Documented by: Ondansetron HCl (Zofran) 4 mg IV Q6H PRN PRN Reason: Nausea Stop: 04/24/20 21:58 Polyethylene Glycol (Miralax Powder Packet) 17 gm PO DAILY PRN PRN Reason: Constipation Stop: 04/24/20 21:58 Sertraline HCl (Zoloft) 25 mg PO DAILY [facility] Stop: 04/25/20 08:59 Last Admin: 03/27/20 08:11 Dose: 25 mg Documented by: Resident Activity Tracking Resident Involvement: Resident Care Provided Care Provided: Adult Hospital Medicine (1) Urinary tract infection Hematuria presence: without hematuria Urinary tract infection type: site unspecified Qualified Code(s): N39.0 - Urinary tract infection, site not specified
[2020-03-27] MEDS ORDERED: CALCIUM CARBONATE 500 MG CHEWABLE TAB PO PRN (11:39)
[2020-03-27] MEDS ORDERED: SODIUM CHLORIDE 0.9% 1000ML 500 ML IV ONE (13:27)
--- NOTE | 2020-03-27 16:13 | Discharge Summary ---
Date of Service March 27, 2020 Admission HPI Per Admitting Provider Aaliyah Perkins is an 85 year old woman with a past medical history significant for chronic renal disase, frequent UTI's, hypertension, DMII on glipizide, prolapsed bladder and prolapsed rectum history, who presents today with Urinary symptoms and heart palpitations. She tells me she is feeling fine in her usual state of health, however her son says that she has been more conused over the last few days and that she has been having keeping track of her pills. When he went over to her house because of his concern over the phone he found her weekly pill container upended. No extra pills had been taken on census of the pills remaining but she was clearly more confused than usual. She then endorsed that she had been having urinary symptoms for the past three or four days with increased frequency of urination and burning. She is oriented to person place time and situation for the most part although she thought today was the march not yesterday. She tells me she does not have any chest pain but occasionally feels like her chest skips a beat she tells me she has had this sensation off an on for years. On presentation to the ED patient's vitals are WNL apart from some hypertension, her labwork is remarkable for a urinalysis indicative of UTI with bacteria, leuk esterase and 1+ blood. She also has an elevated creatinine of 1.6 which appears to be below her baseline. Her renal function has been slowly improving for some time from stage IV renal disease. Chest X ray and Head CT were negative. Patient was given one dose of zosyn and 500 mls bolus of cyrstalloid. At present she is resting comfortably, her son is very concerned about her wellbeing at home alone and would like to discuss the possibility of home health nursing to help organize her medications a few times per week. Patient lives alone, does not smoke, or drink, her about 20 years ago. She wishes to be DNR/DNI. Principal Diagnosis uti Discharge Exam Constitutional WD/WN, vitals as above Eyes PERRL, conjunctivae normal, anicteric sclerae ENMT external ear and nose normal, oropharynx normal Respiratory normal respiratory effort, lungs clear to auscultation Cardiovascular RRR, no murmur, no edema Gastrointestinal (Abdomen) normal bowel sounds, soft, nontender, no hepatosplenomegaly Percussion/Palpation: + abdomen tender (mild ttp suprapubic ) Skin no rashes, warm and dry Psychiatric A+Ox3, euthymic affect Discharge Data Allergies Allergy/AdvReac Type Severity Reaction Status Date / Time cephalexin Allergy Mild DIARRHEA Verified 03/25/20 18:19 Consultations 03/25/20 21:49 ED Decision to Admit Stat 03/25/20 21:59 Consult Case Management - Discharge Planning Routine Ordered Studies 03/25/20 18:06 CT head/brain wo con Stat Hospital Course (1) Urinary tract infection: Aaliyah Perkins is an 85 year old woman here for UTI and confusion. The following was the medical management during stay here: UTI -Simple, no elevated white count or sepsis/SIRS -Urine culture Grew E. coli, pansensitive. -Treated with ceftriaxone. Will treat with PO Bactrim on discharge. -Hydrated with IV fluid This admission. Patient encouraged to continue p.o. hyd ration on discharge -Previous culture from December 2019 growing alpha strep not enterococcus, gamma strep not enterococcus. Culture from July 2018 growing E. coli, which was pansensitive. -Creatinine stable this admission. 1.54 on day of discharge Altered mental status -Secondary to above -Patient struggling arranging home meds - PT/OT and consult case management to discuss home health nursing--PT recs return home when able. Home health through [facility] set up for discharge. -Primary care provider is concerned about beginnings of dementia. Can follow-up as an outpatient -This admission patient with waxing and waning mental state likely worsened by being in hospital environment DVT PPx: heparin . At time of discharge patient with no other acute concerns or complaints. Total Time Total Time Spent Total Time Spent (In Minutes): <30 Discharge Plan Discharge Items Patient Disposition: Home - Home Health Services Reason For Visit: UTI Discharge Diagnosis: UTI Condition on Discharge: Good Activity: Per Instructions section Non-emergency contact: Primary Care Provider Call non-emergency contact if: you have any medication questions, your symptoms worsen and your temperature is above 101.5 Follow-up/Referrals: Jada Camargo MD [Primary Care Provider] - 03/30/20 2:00 pm (You have a hospital follow up appt with Dr Camargo, on Friday 03/30 at 2:00pm. If this appt does not fit your schedule please call [phone] to reschedule. Please arrive 15 minutes prior to appt time, and remember to bring your mask with you. ) Diet: Regular Addtl Attending Provider Instructions: You were admitted with concerns for confusion and found to have a urinary tract infection. We treated this with IV antibiotics and noted improvement in your mental status. Please multiple instructions on discharge: To be expected You will continue oral antibiotic Bactrim for 10 additional days. This has been sent to your pharmacy ([facility]) Please follow-up with your PCP on March 30, 2020 at 2 PM for normal hospital follow-up We have set up home health services to help assist you with your medications. They will meet you upon discharge. Pending Studies at Discharge: No Stand-Alone Forms: [facility] Medications and DC Order Prescriptions: New sulfamethoxazole-trimethoprim [Bactrim DS] 800-160 mg tablet 2 tab PO DAILY 10 Days Qty: 20 RF: 0 Continued amlodipine 2.5 mg tablet 2.5 mg PO BID Qty: 60 RF: 5 carvedilol 3.125 mg tablet 3.125 mg PO BID Qty: 60 RF: 5 atorvastatin 10 mg tablet 10 mg PO DAILY Qty: 30 RF: 5 sertraline 25 mg tablet 25 mg PO DAILY Qty: 30 RF: 2 glipizide 5 mg tablet 5 mg PO BID Qty: 60 RF: 5 ferrous fumarate 325 mg (106 mg iron) tablet 325 mg PO DAILY RF: 0 Ocuvite with Lutein 1,000 unit-200 mg-60 unit-2 mg tablet 1 tab PO BID RF: 0 acetaminophen 500 mg tablet See Rx Instructions .ROUTE .COMPLEX RF: 0 ascorbic acid (vitamin C) [Vitamin C] 1,000 mg Tablet 1 g PO DAILY RF: 0 Caltrate 600 plus D 600 mg (1,500 mg)-800 unit Tablet,Chewable 1 tab PO BID RF: 0 Hair, Skin, Nails with Biotin 7.5-7.5-1,250 mg-unit-mcg Tablet,Chewable 1 tab PO DAILY RF: 0 Discharge Orders: Discharge Order (Routine); Ordered 03/27/20 Ordered By: Nic Frederick Admission Data Admit Date/Time: 03/26/20 17:02 Attending Provider: Colton Gilbert Admit Provider: Luis London Primary Care Provider: Jada Camargo. Other Providers: [facility],Home Healthcare ; Donavon Mancia Other Interventions: Discharge Summary Assessment (RN) Last Done: 03/27/20 16:12 DC Date/Time DO NOT enter until pt leaves facility: 03/27/20 17:25 Supervising Physician Co-Signing Physician Notes I personally examined the patient and verified all walsh points of history and exam, discussed case, and agree with decision making with Dr Frederick. feeling lightheaded when i see her. in f/u by dr frederick later after fluids she's feeling better, feeling up to going home. he d/w family who are comfortable taking her home as well vitals noted nad heent nc at mmm breathing unlabored no accessory muscles good effort skin no rashes no pallor or icterus AMS - probably mostly UTI, possibly some dehydration - stable for home w family support. given complicated UTI but not pyelo - and given CrCl - will ask that her abx be reduced to bactrim 1/2 PO bid x 5 days rather than 1 po bid x10 otherwise as above Resident Activity Tracking Resident Involvement: Resident Care Provided Care Provided: Adult Hospital Medicine
--- NOTE | 2020-03-27 19:30 | Billing Data ---
Date of Service March 27, 2020 Coding Level of Care Code D/C Day Management <30 mins
== END 2020-03-27 17:25 | disposition home health service (06) ==
LOC: 2N 17:45 → ED 17:45 → 2N 21:39 → SUATTDRO 03-26 17:02

== ENCOUNTER 2020-03-29 13:05 | Observation (INO) ==
[2020-03-29] MEDS ORDERED: SODIUM CHLORIDE 0.9% 1000ML 1,000 ML IV SCH (14:15)
[2020-03-29 14:41] LABS: Appearance Urine Clear (Clear); Bacteria Urine Automated Negative (Negative); Bilirubin Urine Negative (Negative); Blood Urine Negative (Negative); Color Urine Yellow; Epithelial Cell Urine Auto >30 /lpf (0-5); Glucose Urine UA Negative (Negative); Ketones Urine Negative (Negative); Leukocyte Esterase Urine 2+ (Negative); Nitrite Urine Negative (Negative); Protein Urine Negative (Negative); RBC Urine Automated 0-4 /hpf (0-4); Specific Gravity Urine 1.015 (1.000-1.030); Urobilinogen Urine Negative (Negative); WBC Urine Automated >30 /hpf (0-5); pH Urine 7.5 (4.5-7.5)
--- NOTE | 2020-03-29 14:43 | XRay Report ---
SINGLE VIEW CHEST CLINICAL HISTORY: Generalized weakness. FINDINGS: An AP, portable, upright chest radiograph is compared to study dated 03/25/2020. The examinat ion is degraded by portable technique and patient rotation. The cardiomediastinal silhouette is unr emarkable. There is bibasilar scarring/atelectasis. No airspace consolidation or large pleural effusi on is identified. No pneumothorax is seen. The skeletal structures are osteopenic. The bony thorax is grossly intact. IMPRESSION: No active disease in the chest. ACT 112: Negative or not required by law. Electronically signed by: Bob Aranda M.D. 03/29/2020 2:42 PM
[2020-03-29 14:54] LABS: Basophils # (auto) 0.03 K/uL (0-0.2); Basophils % (auto) 0.3 %; Eosinophils # (auto) 0.25 K/uL (0-0.5); Eosinophils % (auto) 2.7 %; Hematocrit (blood only) 36.9 % (37-47); Hemoglobin 12.8 g/dL (12.0-16.0); Immature Granulocytes # (auto) 0.03 K/uL (0.00-0.02); Immature Granulocytes % (auto) 0.3 %; Lymphocytes # (auto) 1.43 K/uL (1.2-3.4); Lymphocytes % (auto) 15.6 %; Mean Corpuscular Hemoglobin 32.1 pg (25-34); Mean Corpuscular Hgb Conc 34.7 g/dL (32-36); Mean Corpuscular Volume 92.5 fL (80-100); Monocytes # (auto) 0.72 K/uL (0.11-0.59); Monocytes % (auto) 7.9 %; Neutrophils # (auto) 6.69 K/uL (1.4-6.5); Neutrophils % (auto) 73.2 %; Platelet Count 250 K/uL (130-400); Red Blood Count 3.99 M/uL (4.2-5.4); White Blood Count 9.15 K/uL (4.8-10.8)
--- NOTE | 2020-03-29 14:59 | CT Scan Report ---
CT abd pelvis wo con CT DOSE: 270.57 mGy.cm HISTORY: Pain lower abd pain, urinary symptoms, recent UTI TECHNIQUE: Multiaxial CT images of the abdomen and pelvis were performed without contrast. A dose lo wering technique was utilized adhering to the principles of ALARA. COMPARISON STUDY: None. FINDINGS: Lung bases are clear. Liver spleen and pancreas are grossly unremarkable. Gallbladder somewhat contracted with multiple small gallstones in the region of the gallbladder fundu s. Right kidney is negative for hydronephrosis. There is a 5 cm midpole exophytic right renal cyst. There is a small left renal parapelvic cyst. Moderate atherosclerotic change abdominal aorta. No evidence for aneurysm. Nonobstructive bowel pattern. Normal appendix IMPRESSION: 1. Contracted gallbladder containing multiple small gallstones. 2. 5 cm right renal cyst. 3. Nonobstructive bowel pattern. 4. Chronic sigmoid diverticulosis IMPRESSION: No significant abnormality identified within the abdomen or pelvis. ACT 112: Negative or not required by law. The above report was generated using voice recognition software. It may contain grammatical, syntax or spelling errors. Electronically signed by: Enmanuel Fall M.D. 03/29/2020 2:58 PM
[2020-03-29 15:02] LABS: Albumin Level 3.8 gm/dl (3.4-5.0); BUN Creatinine Ratio 9.5 (10-20); Blood Urea Nitrogen 17 mg/dl (7-18); Carbon Dioxide 27 mmol/L (21-32); Chloride 104 mmol/L (98-107); Creatinine Clr Calc Pharmacy 22.2 ml/min; Est GFR (African American) 29.6; Est GFR (Non-African American) 25.6; Glucose 153 mg/dl (70-99); Potassium 3.7 mmol/L (3.5-5.1); Sodium 136 mmol/L (136-145)
[2020-03-29 15:12] LABS: Alanine Aminotransferase 29 U/L (12-78); Albumin Globulin Ratio 1.1 (0.9-2); Alkaline Phosphatase 63 U/L (45-117); Aspartate Aminotransferase 25 U/L (15-37); Bilirubin,Total 0.5 mg/dl (0.2-1); Globulin 3.5 gm/dl (2.5-4.0); Total Protein 7.3 gm/dl (6.4-8.2); Troponin I < 0.015 ng/ml (0-0.045)
[2020-03-29] MEDS ORDERED: AMOXICILLIN 500 MG CAP PO STA (16:25)
--- NOTE | 2020-03-29 16:25 | Emergency Department Note ---
Impression & Plan Generalized weakness, Heart palpitations, Acute UTI (urinary tract infection) ED Provider Note NAME: DIMITRIS FLORES AGE: 85 SEX: F ARRIVES VIA: Ambulance INFORMANT: [Patient] son ED PROVIDER(S): Guille Tobin MD CHIEF COMPLAINT: Urinary symptoms PLAN: Disposition: Admitted Condition: [Good] MEDICAL DECISION MAKING: Patient presented complaining of urinary symptoms, palpitations, generalized w eakness. Her work-up revealed an unremarkable CBC, chemistry panel. Urinalysis does show some persistent leukocyte esterase as well as white blood cells. No obvious bacteria noted. Prior culture results revealed a pansensitive E. coli. Electrolytes unremarkable today. The patient had an unremarkable chest x-ray. ECG showed a sinus rhythm without ischemia. Family was concerned about the pat ient going home. We discussed possible referral to [facility] however the patient would not qualify based upon her insurance directly from the ER. Family did not want the patient to go home and requested admission here. Case management did meet with the family. Consultation was made with the hospitalist service. Triage Nursing notes reviewed and agree them. [Additional history obtained from] patient's son [Prior medical records reviewed] last visit and admission reviewed. Pansen sitive E. coli noted. Vital Signs: reviewed and remarkable for [no significant abnormalities] Differential diagnosis: Infection, dehydration, metabolic abnormality, hypo/hyperglycemia, electrolyte disturbance, anemia, hypoxia, cardiac sources, intracerebral event, toxicologic, neurologic, as well as other pathologies. ER treatment provided: Saline hydration Oral amoxicillin Diagnostics interpreted by me: ECG: Rate: 68 Rhythm:Normal sinus [place]:Normal QRS: Left anterior fascicular block ST segements:No elevation or depression Other:No PACs or PVCs. LVH Cardiac Monitoring:Cardiac monitoring ordered by me: The patient was placed on continuous cardiac monitoring and observed. It revealed a normal sinus rhythm at 70 beats per minute without ectopy or evidence of dysrhythmia. Laboratory studies: [See below] unremarkable CBC and chemistry panel. Electrolytes normal. Urinalysis as noted above Imaging studies: Chest x-ray. Findings: A chest x-ray was performed and revealed no pneumothorax, effusion, infiltrate, pulmonary edema, free air under the diaphragm, or wide mediastinum. Impression: No acute disease. CT scan of the abdomen pelvis reveals chronic diverticulosis without evidence of diverticulitis. No obstruction or renal calculi noted. Gallstones noted. The patient is not having any discomfort in the right upper quadrant. Consultation(s): [facility] internal medicine, Dr. Sunshine HPI: The patient is a 85 year old female who presents to the Emergency Room with complaints of urinary symptoms. This started today and is persistent. The tracie barrios also notes the following associated symptoms, generalized weakness, dizziness and heart palpitations. The patient has recently been admitted and found to have an E. coli UTI. She was placed on Bactrim for relieving factors. Current pain is rated as 2/10. Notes suprapubic abdominal discomfort pt denies LOC, headache, fevers, chills, diaphoresis, visual changes, neck pain, chest pain, breathing difficulties, nausea, vomiting, back pain, melena, hematochezia, numbness, lymphadenopathy, rash, or other complaints. ROS: See above HPI for pertinent positives & negatives. A total of [10] systems reviewed and were otherwise negative. PAST MEDICAL HISTORY:[See Below] E. coli UTI, diabetes PAST SURGICAL HISTORY:[See Below] FAMILY HISTORY:[See Below] SOCIAL HISTORY:[See Below] lives alone HOME MEDICATIONS:[See Below] ALLERGIES:[See Below] VITALS:[See Below] PHYSICAL EXAMINATION: GENERAL: Awake, alert, tired-appearing, in no distress HENT: Normocephalic, atraumatic. Oropharynx unremarkable. EYES: Normal conjunctiva. Sclera non-icteric. NECK: Inspection normal. Non-tender. Supple. No nuchal rigidity. FROM. No masses. RESPIRATORY: Clear to auscultation. No wheezes. No rales. Normal respiratory effort. CARDIAC: Normal rate. Normal rhythm. No murmurs. No rubs. Extremities warm and well perfused. Pulses equal. No JVD. GI: Soft, non-distended. Suprapubic tenderness to palpation. No rebound or guarding. No masses. RECTAL: Deferred. MUSCULOSKELETAL: Atraumatic. Chest examination reveals no tenderness. The back is symmetrical on inspection without obvious abnormality. There is no CVA tenderness to palpation. No joint edema. LOWER EXTREMITIES: Calves are equal size bilaterally and non-tender. No edema. No discoloration. NEURO: Normal sensorium. No sensory or motor deficits noted. SKIN: No rash or jaundice noted. ED COURSE: [Critical Care:] [None] Guille Tobin MD Past Med/Surg History Social History Preferred Language: Burkinan Communication Ability: Effective Associate Dean Required: No Beliefs That Will Affect Care: None marital status: / Current Living Situation: Alone Feels Safe at Home: Yes Smoking Status: Former smoker Second Hand Exposure: No ; Hx Alcohol Use: No Hx Substance Use: No Sunscreen Use: No Allergies Allergies Allergy/AdvReac Type Severity Reaction Status Date / Time cephalexin Allergy Mild DIARRHEA Verified 03/29/20 15:36 Home Meds Home Medications Medication Instructions Recorded Confirmed acetaminophen 500 mg tablet 500 mg PO Q6 PRN tab 05/18/19 03/29/20 ferrous fumarate 325 mg (106 mg 325 mg PO DAILY tab 05/18/19 03/29/20 iron) tablet vit A,C and A-xycdns-nuhhgyib 1 tab PO BID 05/18/19 03/29/20 1,000 unit-C 200 mg-E 60 unit-lutein 2 mg and minerals tablet Caltrate 600 plus D 1 tab PO BID 03/25/20 03/29/20 Hair, Skin, Nails with Biotin 1 tab PO DAILY 03/25/20 03/29/20 ascorbic acid (vitamin C) [Vitamin 1 g PO DAILY 03/25/20 03/29/20 C] sulfamethoxazole-trimethoprim 0.5 tab PO BID 03/29/20 03/29/20 [Bactrim DS] Previous Rx's Medication Instructions Recorded amlodipine 2.5 mg tablet 2.5 mg PO BID #60 tab 11/07/19 carvedilol 3.125 mg tablet 3.125 mg PO BID #60 tab 11/14/19 glipizide 5 mg tablet 5 mg PO BID #60 tab 01/11/20 atorvastatin 10 mg tablet 10 mg PO DAILY #30 tab 01/13/20 sertraline 25 mg tablet 25 mg PO DAILY #30 tab 03/28/20 Results & Data (ED) Vital Signs Vital Signs - 24 hr 03/29/20 13:11 03/29/20 13:18 03/29/20 13:30 Temperature 36.6 C Temperature Source Oral Pulse Rate 64 70 Pulse Rate [Finger] Pulse Rate from SpO2 Sensor 69 Respiratory Rate 18 18 Respiratory Effort / Characteristics Respiratory Depth Respiratory Pattern Blood Pressure 169/91 H 131/84 Blood Pressure Mean 117 104 Pulse Oximetry 96 94 96 Oxygen Delivery Method Room Air Room Air Room Air Sepsis Recent Fever Within 48 Hours No Sepsis New/Unexplained Change in Mental Status No Sepsis Action Taken by Nursing No Action Required 03/29/20 14:30 03/29/20 15:03 03/29/20 15:33 Temperature Temperature Source Pulse Rate 67 Pulse Rate [Finger] Pulse Rate from SpO2 Sensor 65 Respiratory Rate 15 28 H 21 Respiratory Effort / Characteristics Respiratory Depth Respiratory Pattern Blood Pressure 150/68 H Blood Pressure Mean 86 Pulse Oximetry 98 Oxygen Delivery Method Room Air Room Air Room Air Sepsis Recent Fever Within 48 Hours Sepsis New/Unexplained Change in Mental Status Sepsis Action Taken by Nursing 03/29/20 15:35 03/29/20 16:01 03/29/20 16:30 Temperature Temperature Source Pulse Rate 68 68 68 Pulse Rate [Finger] Pulse Rate from SpO2 Sensor 68 Respiratory Rate 18 17 19 Respiratory Effort / Characteristics Respiratory Depth Respiratory Pattern Blood Pressure 162/60 H Blood Pressure Mean 116 Pulse Oximetry 98 97 Oxygen Delivery Method Room Air Room Air Room Air Sepsis Recent Fever Within 48 Hours Sepsis New/Unexplained Change in Mental Status Sepsis Action Taken by Nursing 03/29/20 16:59 03/29/20 17:00 03/29/20 17:30 Temperature Temperature Source Pulse Rate 66 64 Pulse Rate [Finger] 69 Pulse Rate from SpO2 Sensor 77 63 Respiratory Rate 21 26 H 17 Respiratory Effort / Characteristics Non-Labored Spontaneous Respiratory Depth Normal Respiratory Pattern Regular Blood Pressure Blood Pressure Mean Pulse Oximetry 96 98 Oxygen Delivery Method Room Air Room Air Room Air Sepsis Recent Fever Within 48 Hours Sepsis New/Unexplained Change in Mental Status Sepsis Action Taken by Nursing 03/29/20 17:39 03/29/20 18:00 Temperature Temperature Source Pulse Rate 62 Pulse Rate [Finger] Pulse Rate from SpO2 Sensor Respiratory Rate 21 Respiratory Effort / Characteristics Respiratory Depth Respiratory Pattern Blood Pressure 136/93 Blood Pressure Mean 107 Pulse Oximetry Oxygen Delivery Method Room Air Room Air Sepsis Recent Fever Within 48 Hours Sepsis New/Unexplained Change in Mental Status Sepsis Action Taken by Nursing Laboratory Data Result diagrams: 03/29/20 14:35 03/29/20 14:35 Lab Results 03/29/20 03/29/20 03/29/20 Range/Units 14:00 14:35 14:35 WBC 9.15 (4.8-10.8) K/uL RBC 3.99 L (4.2-5.4) M/uL Hgb 12.8 (12.0-16.0) g/dL Hct 36.9 L (37-47) % MCV 92.5 (80-100) fL MCH 32.1 (25-34) pg MCHC 34.7 (32-36) g/dL Plt Count 250 (130-400) K/uL Immature Gran % (Auto) 0.3 % Neut % (Auto) 73.2 % Lymph % (Auto) 15.6 % [place] % (Auto) 7.9 % Eos % (Auto) 2.7 % Baso % (Auto) 0.3 % Neut # (Auto) 6.69 H (1.4-6.5) K/uL Lymph # (Auto) 1.43 (1.2-3.4) K/uL [place] # (Auto) 0.72 H (0.11-0.59) K/uL Eos # (Auto) 0.25 (0-0.5) K/uL Baso # (Auto) 0.03 (0-0.2) K/uL Immature Gran # (Auto) 0.03 H (0.00-0.02) K/uL Sodium 136 (136-145) mmol/L Potassium 3.7 (3.5-5.1) mmol/L Chloride 104 (98-107) mmol/L Carbon Dioxide 27 (21-32) mmol/L Anion Gap 5.0 (3-11) BUN 17 (7-18) mg/dl Creatinine 1.77 H (0.6-1.2) mg/dl Est Cr Clr Drug Dosing 22.2 ml/min Est GFR ( Amer) 29.6 Est GFR (Non-Af Amer) 25.6 BUN/Creatinine Ratio 9.5 L (10-20) Glucose 153 H (70-99) mg/dl Calcium 10.0 (8.5-10.1) mg/dl Magnesium 2.0 (1.8-2.4) mg/dl Total Bilirubin 0.5 (0.2-1) mg/dl AST 25 (15-37) U/L ALT 29 (12-78) U/L Alkaline Phosphatase 63 (45-117) U/L Troponin I < 0.015 (0-0.045) ng/ml Total Protein 7.3 (6.4-8.2) gm/dl Albumin 3.8 (3.4-5.0) gm/dl Globulin 3.5 (2.5-4.0) gm/dl Albumin/Globulin Ratio 1.1 (0.9-2) TSH 1.240 (0.300-4.500) uIu/ml Urine Color Yellow Urine Appearance Clear (Clear) Urine pH 7.5 (4.5-7.5) Ur Specific [place] 1.015 (1.000-1.030) Urine Protein Negative (Negative) Urine Glucose (UA) Negative (Negative) Urine Ketones Negative (Negative) Urine Blood Negative (Negative) Urine Nitrite Negative (Negative) Urine Bilirubin Negative (Negative) Urine Urobilinogen Negative (Negative) Ur Leukocyte Esterase 2+ H (Negative) Urine WBC (Auto) >30 H (0-5) /hpf Urine RBC (Auto) 0-4 (0-4) /hpf U Hyaline Cast (Auto) 1-5 (0-5) /lpf U Epithel Cells (Auto) >30 H (0-5) /lpf Urine Bacteria (Auto) Negative (Negative) Administered Medications Acetaminophen (Tylenol) 650 mg PO Q4H PRN PRN Reason: pain/fever Stop: 04/28/20 19:10 Last Admin: 03/29/20 21:14 Dose: 650 mg Documented by: [id number] Amlodipine Besylate (Norvasc) 2.5 mg PO BID [facility] Stop: 04/28/20 20:59 Last Admin: 03/29/20 21:15 Dose: 2.5 mg Documented by: [id number] Amoxicillin (Amoxil) 500 mg PO BID [facility]; Protocol Stop: 04/03/20 20:59 Last Admin: 03/29/20 21:23 Dose: 500 mg Documented by: [id number] Carvedilol (Coreg) 3.125 mg PO BID [facility] Stop: 04/28/20 20:59 Last Admin: 03/29/20 21:16 Dose: 3.125 mg Documented by: [id number] Heparin Sodium (Porcine) (Heparin Sodium (Porcine)) 5,000 units SQ Q12 [facility] Stop: 04/28/20 20:59 Last Admin: 03/29/20 21:15 Dose: 5,000 units Documented by: [id number] Cosigned by: [id number] Insulin Aspart (Novolog Flexpen) 0 units SC ACHS BRIA Stop: 04/28/20 20:59 Last Admin: 03/29/20 21:17 Dose: 1 units Documented by: [id number] Cosigned by: [id number] Discontinued Medications Amoxicillin (Amoxil) 500 mg PO NOW STA Stop: 03/29/20 16:26 Last Admin: 03/29/20 16:59 Dose: 500 mg Documented by: [id number] Sodium Chloride (Nss 1000ml) 1,000 mls @ 125 mls/hr IV .Q8H BRIA Stop: 03/29/20 22:14 Last Infusion: 03/29/20 19:12 Dose: 0 mls/hr Documented by: [id number] Admin: 03/29/20 14:38 Dose: 125 mls/hr Documented by: [id number] Discharge Plan Visit Data *Final* Discharge Date/Time: 03/29/20 18:41 Chief Complaint: Urinary Symptoms Stated Complaint: weakness ED Provider: Guille Tobin Discharge Problem: Generalized weakness, Heart palpitations, Acute UTI (urinary tract infection) Patient Disposition: Admitted As Inpatient Discharge Instructions Interventions: ED Discharge Assessment Last Done: 03/29/20 18:41
--- NOTE | 2020-03-29 18:08 | History & Physical Report ---
Date of Service March 29, 2020 Assessment & Plan (1) Urinary tract infection: Aaliyah Perkins is a 85y/o F w/ PMH significant for chronic renal disase, frequent UTI's, hypertension, DMII on glipizide, prolapsed bladder and prolapsed rectum history; who presented today with heart palpitations, continued increased urinary frequency, and urinary discomfort UTI: - urine culture from 03/25 demonstrated pansensitive E. coli - initial concern for secondary altered mental status; however, MMSE of 28 on examination - discontinued Bactrim - start Amoxicillin 500mg TID - repeat urine culture pending Weakness: - family concerned with continued weakness/unsteadiness on feet - previously seen by PT/OT during prior hospitalization with 6 Clicks mobility score of 20 - PT/OT consulted for evaluation - orthostatics ordered HTN: - continue home Carvedilol and Norvasc T2DM: - A1c 7.3 from 01/09/2020 - hold home regimen - SSI started Diet: Heart healthy, T2DM DVT ppx: Heparin Code: DNR/DNI (2) Hypertension: (3) Type 2 diabetes mellitus: (4) Generalized weakness: History of Present Illness Primary Care Provider: Jada Camargo MD Aaliyah Perkins is a 85y/o F w/ PMH significant for chronic renal disase, frequent UTI's, hypertension, DMII on glipizide, prolapsed bladder and prolapsed rectum history; who presented today with heart palpitations, continued increased urinary frequency, and urinary discomfort. She was recently discharged from [facility] on a 10 day course of Bactrim for a UTI that caused her to have similar symptoms at that time. She states that she currently feels in her usual state of health; however, her son indicates that over the last several months she has continued to have decline in her ability to track which day it was, or what she was consistently talking about, and her family has noticed that she frequently will ask the same questions several days in a row. Earlier today, she called her son with concern that her heart was racing fast and that she felt unsteady on her feet. Denies falls, loss of consciousness, chest pain, shortness of breath, nausea, vomiting, abdominal pain, numbness, or tingling. Endorses continued increased urinary frequency, and discomfort with urination. Allergies Allergy/AdvReac Type Severity Reaction Status Date / Time cephalexin Allergy Mild DIARRHEA Verified 03/29/20 15:36 Home Medications Home Medications Medication Instructions Recorded Confirmed Type acetaminophen 500 mg tablet 500 mg PO Q6 PRN tab 05/18/19 03/29/20 History ferrous fumarate 325 mg (106 mg 325 mg PO DAILY tab 05/18/19 03/29/20 History iron) tablet vit A,C and W-dflsiw-ggzxloor 1 tab PO BID 05/18/19 03/29/20 History 1,000 unit-C 200 mg-E 60 unit-lutein 2 mg and minerals tablet amlodipine 2.5 mg tablet 2.5 mg PO BID #60 tab 11/07/19 03/29/20 Rx carvedilol 3.125 mg tablet 3.125 mg PO BID #60 tab 11/14/19 03/29/20 Rx glipizide 5 mg tablet 5 mg PO BID #60 tab 01/11/20 03/29/20 Rx atorvastatin 10 mg tablet 10 mg PO DAILY #30 tab 01/13/20 03/29/20 Rx Caltrate 600 plus D 1 tab PO BID 03/25/20 03/29/20 History Hair, Skin, Nails with Biotin 1 tab PO DAILY 03/25/20 03/29/20 History ascorbic acid (vitamin C) [Vitamin 1 g PO DAILY 03/25/20 03/29/20 History C] sertraline 25 mg tablet 25 mg PO DAILY #30 tab 03/28/20 03/29/20 Rx sulfamethoxazole-trimethoprim 0.5 tab PO BID 03/29/20 03/29/20 History [Bactrim DS] Past Med/Surg History Social History Preferred Language: Ukrainian Communication Ability: Effective Tire Manager Required: No Beliefs That Will Affect Care: None marital status: / Current Living Situation: Alone Feels Safe at Home: Yes Smoking Status: Former smoker Second Hand Exposure: No ; Hx Alcohol Use: No Hx Substance Use: No Sunscreen Use: No Review of Systems Review of Systems: All systems reviewed & are unremarkable except as noted in HPI & below Physical Exam Constitutional: WD/WN, vitals as above Eyes: PERRL, conjunctivae normal, anicteric sclerae Respiratory: normal respiratory effort, lungs clear to auscultation Cardiovascular: Rate/Rhythm: regular rate and regular rhythm Heart Sounds: normal S1 and normal S2; no gallop, no murmur and no cardiac rub Vessels: normal peripheral pulses; no JVD Extremities: no pedal edema Gastrointestinal (Abdomen): normal bowel sounds, soft, nontender, no hepatosplenomegaly Musculoskeletal: no cyanosis or clubbing, extremities motor strength 5/5 Gait: normal gait Skin: no rashes, warm and dry Neurologic: patellar DTR's 2+ bilat, sensation intact Psychiatric: Orientation: alert and oriented x 3 Eye Contact: good eye contact Motor Behavior: steady gait and station Affect: euthymic affect Thought Process: linear/logical thought process Estimated Intelligence: consistent with education level Insight: good insight Judgement: good judgement MMSE score of 28 Genitourinary: no CVA tenderness Results & Data Results & Data ([facility]) Vital Signs (Past 12 Hours) Vital Signs Temp Pulse Pulse Resp BP Pulse Ox 03/29/20 16:59 69 21 96 03/29/20 16:01 68 17 03/29/20 15:35 68 18 162/60 H 98 03/29/20 15:33 21 03/29/20 15:03 28 H 03/29/20 14:30 67 15 150/68 H 98 03/29/20 13:30 70 18 131/84 96 03/29/20 13:18 94 03/29/20 13:11 36.6 C 64 18 169/91 H 96 Laboratory Results 03/29/20 03/29/20 03/29/20 Range/Units 14:35 14:35 14:00 WBC 9.15 (4.8-10.8) K/uL RBC 3.99 L (4.2-5.4) M/uL Hgb 12.8 (12.0-16.0) g/dL Hct 36.9 L (37-47) % MCV 92.5 (80-100) fL MCH 32.1 (25-34) pg MCHC 34.7 (32-36) g/dL Plt Count 250 (130-400) K/uL Immature Gran % (Auto) 0.3 % Neut % (Auto) 73.2 % Lymph % (Auto) 15.6 % [place] % (Auto) 7.9 % Eos % (Auto) 2.7 % Baso % (Auto) 0.3 % Neut # (Auto) 6.69 H (1.4-6.5) K/uL Lymph # (Auto) 1.43 (1.2-3.4) K/uL [place] # (Auto) 0.72 H (0.11-0.59) K/uL Eos # (Auto) 0.25 (0-0.5) K/uL Baso # (Auto) 0.03 (0-0.2) K/uL Immature Gran # (Auto) 0.03 H (0.00-0.02) K/uL Sodium 136 (136-145) mmol/L Potassium 3.7 (3.5-5.1) mmol/L Chloride 104 (98-107) mmol/L Carbon Dioxide 27 (21-32) mmol/L Anion Gap 5.0 (3-11) BUN 17 (7-18) mg/dl Creatinine 1.77 H (0.6-1.2) mg/dl Est Cr Clr Drug Dosing 22.2 ml/min Est GFR ( Amer) 29.6 Est GFR (Non-Af Amer) 25.6 BUN/Creatinine Ratio 9.5 L (10-20) Glucose 153 H (70-99) mg/dl Calcium 10.0 (8.5-10.1) mg/dl Magnesium 2.0 (1.8-2.4) mg/dl Total Bilirubin 0.5 (0.2-1) mg/dl AST 25 (15-37) U/L ALT 29 (12-78) U/L Alkaline Phosphatase 63 (45-117) U/L Troponin I < 0.015 (0-0.045) ng/ml Total Protein 7.3 (6.4-8.2) gm/dl Albumin 3.8 (3.4-5.0) gm/dl Globulin 3.5 (2.5-4.0) gm/dl Albumin/Globulin Ratio 1.1 (0.9-2) TSH 1.240 (0.300-4.500) uIu/ml Urine Color Yellow Urine Appearance Clear (Clear) Urine pH 7.5 (4.5-7.5) Ur Specific [place] 1.015 (1.000-1.030) Urine Protein Negative (Negative) Urine Glucose (UA) Negative (Negative) Urine Ketones Negative (Negative) Urine Blood Negative (Negative) Urine Nitrite Negative (Negative) Urine Bilirubin Negative (Negative) Urine Urobilinogen Negative (Negative) Ur Leukocyte Esterase 2+ H (Negative) Urine WBC (Auto) >30 H (0-5) /hpf Urine RBC (Auto) 0-4 (0-4) /hpf U Hyaline Cast (Auto) 1-5 (0-5) /lpf U Epithel Cells (Auto) >30 H (0-5) /lpf Urine Bacteria (Auto) Negative (Negative) Medications Administered Current Inpatient Medications Sodium Chloride (Nss 1000ml) 1,000 mls @ 125 mls/hr IV .Q8H BRIA Stop: 03/29/20 22:14 Last Admin: 03/29/20 14:38 Dose: 125 mls/hr Documented by: Supervising Physician Co-Signing Physician Notes I personally saw and examined the patient. I verified all walsh points and agree with resident physician Dr Lennox Gould with the following exceptions and/or additions: 85 year old female with concern for generalized weakness. She was recently discharged with a diagnosis of UTI treated with Bactrim. She did well with PT prior to discharge but concern she declined further on returning home. Her family had left by the time of my assessment however the patient even at 10pm was alert and orientated x3 and could provide me with a complete history consistent with HPI. O/E - HS 1+2, no murmur, no pedal edema, Chest CTAB, grossly normal neurological exam normal A/P UTI - unclear if she still has this but I did not talk to her family to address their concerns there ok to continue antibiotics for now awaiting repeat culture. However no longer having dysuria. Consider stopping antibiotics tomorrow. Concern for memory - no dementia based on MMSE. Apparently has good and bad days which is more concerning for medical diagnosis such as hypoglycemia or constipation. However she doesn't skip meals and appears to know very well when her BSG goes down in 70s (feels shaky) which apparently doesn't happen often. Occasional constipation but unlikely to be causing a problem. 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 Recommend she picks up more brain stimulating activities. Based on my conversation with h er today and MMSE score I am not concerned about dementia. Physical deconditioning - concern of this from family. PT/OT assessments although recently did well and patient reports no decline in her function since discharge. Resident Activity Tracking Resident Involvement: Resident Care Provided Care Provided: Adult Hospital Medicine (1) Urinary tract infection Hematuria presence: without hematuria Urinary tract infection type: site unspecified Qualified Code(s): N39.0 - Urinary tract infection, site not specified
[2020-03-29] MEDS ORDERED: GLUCOSE 40% GEL 15 GM TUBE PO PRN (19:11)
[2020-03-29] MEDS ORDERED: DEXTROSE 50% 50 ML SYRINGE IV PRN (19:11)
[2020-03-29] MEDS ORDERED: CARBOHYDRATES FOR HYPOGLYCEMIA PO PRN (19:11)
[2020-03-29] MEDS ORDERED: ALUMINUM/MAGNESIUM SUSP 30 ML UDC PO PRN (19:11)
[2020-03-29] MEDS ORDERED: GLUCOSE 10 TABS/TUBE PO PRN (19:11)
[2020-03-29] MEDS ORDERED: MAGNESIUM HYDROXIDE SUSP 30 ML UDC PO PRN (19:11)
[2020-03-29] MEDS ORDERED: ONDANSETRON INJ 2 MG/ML 2 ML VIAL IV PRN (19:11)
[2020-03-29] MEDS ORDERED: GLUCAGON FOR INJ 1 MG VIAL SQ PRN (19:11)
[2020-03-29] MEDS ORDERED: POLYETHYLENE (MIRALAX) 17 GM PACK PO PRN (19:11)
[2020-03-29] MEDS: ACETAMINOPHEN 325 MG TAB PO PRN (21:14)
[2020-03-29] MEDS: HEPARIN SOD 5,000 UNIT/0.5 ML VIAL SQ SCH (21:15)
[2020-03-29] MEDS: AMLODIPINE BESYLATE 5 MG TAB PO SCH (21:15)
[2020-03-29] MEDS: carvediloL 3.125 MG TAB PO SCH (21:16)
[2020-03-29] MEDS: INSULIN ASPART 100 UNITS/ML 3 ML PEN SC SCH (21:17)
[2020-03-29] MEDS: AMOXICILLIN 500 MG CAP PO SCH (21:23)
--- NOTE | 2020-03-30 05:06 | Electrocardiogram Report ---
Test Reason : Blood Pressure : / mmHG Vent. Rate : 068 BPM Atrial Rate : 068 BPM P-R Int : 176 ms QRS Dur : 114 ms QT Int : 388 ms P-R-T Axes : 050 -52 054 degrees QTc Int : 412 ms Normal sinus rhythm Left anterior fascicular block Left ventricular hypertrophy with repolarization abnormality Abnormal ECG When compared with ECG of 25-MAR-2020 18:00, Premature ventricular complexes are no longer Present Premature atrial complexes are no longer Present Confirmed by Raman Salas ([id number]) on 03/30/2020 5:06:32 AM Referred By: REFERRED SELF Confirmed By:Raman Salas
[2020-03-30 07:45] LABS: Basophils # (auto) 0.03 K/uL (0-0.2); Basophils % (auto) 0.5 %; Eosinophils # (auto) 0.32 K/uL (0-0.5); Eosinophils % (auto) 5.9 %; Hematocrit (blood only) 37.1 % (37-47); Hemoglobin 12.5 g/dL (12.0-16.0); Immature Granulocytes # (auto) 0.01 K/uL (0.00-0.02); Immature Granulocytes % (auto) 0.2 %; Lymphocytes # (auto) 1.46 K/uL (1.2-3.4); Lymphocytes % (auto) 26.7 %; Mean Corpuscular Hgb Conc 33.7 g/dL (32-36); Mean Corpuscular Volume 94.9 fL (80-100); Mean Platelet Volume 9.5 fL (7.4-10.4); Monocytes # (auto) 0.78 K/uL (0.11-0.59); Monocytes % (auto) 14.3 %; Neutrophils # (auto) 2.86 K/uL (1.4-6.5); Neutrophils % (auto) 52.4 %; Platelet Count 241 K/uL (130-400); RDW Coefficient of Variation 13.8 % (11.5-14.5); RDW Standard Deviation 47.5 fL (36.4-46.3); Red Blood Count 3.91 M/uL (4.2-5.4); White Blood Count 5.46 K/uL (4.8-10.8)
--- NOTE | 2020-03-30 07:56 | Billing Data ---
Date of Service March 29, 2020 Coding Level of Care Code 61705 OBS Care - Level 2
[2020-03-30 08:11] LABS: BUN Creatinine Ratio 8.5 (10-20); Calcium 9.5 mg/dl (8.5-10.1); Creatinine Clr Calc Pharmacy 20.8 ml/min; Est GFR (African American) 30.2; Est GFR (Non-African American) 26.1; Phosphorus 3.6 mg/dl (2.5-4.9)
[2020-03-30] MEDS: AMLODIPINE BESYLATE 5 MG TAB PO SCH ×2 (08:37→20:32)
[2020-03-30] MEDS: HEPARIN SOD 5,000 UNIT/0.5 ML VIAL SQ SCH ×2 (08:37→20:32)
[2020-03-30] MEDS: ATORVASTATIN 10 MG TAB PO SCH (08:37)
[2020-03-30] MEDS: AMOXICILLIN 500 MG CAP PO SCH ×2 (08:39→20:31)
[2020-03-30] MEDS: carvediloL 3.125 MG TAB PO SCH ×2 (08:40→20:31)
[2020-03-30] MEDS: SERTRALINE HCL 50 MG TABLET PO SCH (08:41)
[2020-03-30] MEDS: INSULIN ASPART 100 UNITS/ML 3 ML PEN SC SCH ×4 (08:42→20:30)
[2020-03-30 08:55] LABS: Estimated Average Glucose 163 mg/dl; Hemoglobin A1C 7.3 % (4.5-5.6)
--- NOTE | 2020-03-30 13:39 | Hospitalist Progress Note ---
Date of Service March 30, 2020 Assessment & Plan (1) Urinary tract infection: - urine culture from 03/25 demonstrated pansensitive E. coli - initial concern for secondary altered mental status; however, MMSE of 28 on examination - discontinued Bactrim, unclear why this was no longer managing pt's sx but dosing was changed after CM f/u call - start Amoxicillin 500mg TID - repeat urine culture pending Probiotics started for nausea with abx change (2) Hypertension: - continue home Carvedilol and Norvasc (3) Type 2 diabetes mellitus: - A1c 7.3 from 01/09/2020 - hold home regimen - SSI started (4) Generalized weakness: family concerned with continued weakness/unsteadiness on feet - previously seen by PT/OT during prior hospitalization with 6 Clicks mobility score of 20 - PT/OT consulted for evaluation TSH WNL, CBC, PRP WNL (5) Stage 4 chronic kidney disease: Baseline cr is 1.5-1.8 Cr is in the range thus far Monitor (6) DVT prophylaxis: Heparin for DVT proph Admission and Anticipated Discharge Date Admission Date: March 29, 2020 Subjective Pt states she has been nauseated this AM, but no emesis or abd pain. This just started this AM. She states it is better now and she did have a bit of breakfast. She states she feels weak still. States that palpitations, urinary frequency, and dysuria are all resolved now. She does not feel that she has AMS. Pt denies fever, SOB, chest pain, c/d, LE pain or swelling. Review of Systems Review of Systems: Pertinent positives and negatives reviewed in HPI--all others negative Physical Exam Constitutional: WD/WN, vitals as above Eyes: normal visual saunders by confrontation and + anicteric sclerae Neck: normal visual inspection and trachea midline Respiratory: normal respiratory effort, lungs clear to auscultation Cardiovascular: Rate/Rhythm: regular rate and regular rhythm Gastrointestinal (Abdomen): Inspection/Auscultation: abdomen not distended Percussion/Palpation: abdomen soft; abdomen nontender Musculoskeletal: Head/Neck/Chest: normocephalic and head atraumatic negative for edema, peripheral pulses intact Skin: no rashes, warm and dry Neurologic: awake; not confused Speech / Cognition: normal speech Psychiatric: A+Ox3, euthymic affect Results & Data Results & Data (MN) Vital Signs (Past 12 Hours) Vital Signs Temp Pulse Resp BP Pulse Ox 03/30/20 07:02 36.9 C 67 18 118/65 94 03/30/20 04:00 36.8 C 67 18 132/73 95 PG Care Time/CCT Total # of Minutes Spent Total Time Spent with Patient: Total time spent is greater than 50% in coordination of care (as documented) at patient's floor/unit and/or counseling patient: Coding Level of Care Code 54554 Subseq Hosp Care Lvl 3 Diagnoses Urinary tract infection N39.0 Hematuria presence: without hematuria Urinary tract infection type: site unspecified Hypertension I10 Type 2 diabetes mellitus E11.9 Generalized weakness R53.1 Stage 4 chronic kidney disease N18.4 DVT prophylaxis Z29.9 (1) Urinary tract infection Hematuria presence: without hematuria Urinary tract infection type: site unspecified Qualified Code(s): N39.0 - Urinary tract infection, site not specified
[2020-03-30] MEDS: ACETAMINOPHEN 325 MG TAB PO PRN (13:54)
[2020-03-30] MEDS: LACTOBACILLUS ACIDOPHILUS (FLORANEX) TAB PO SCH ×3 (13:54→20:31)
[2020-03-31] MEDS: ATORVASTATIN 10 MG TAB PO SCH (09:01)
[2020-03-31] MEDS: SERTRALINE HCL 50 MG TABLET PO SCH (09:01)
[2020-03-31] MEDS: AMLODIPINE BESYLATE 5 MG TAB PO SCH (09:02)
[2020-03-31] MEDS: AMOXICILLIN 500 MG CAP PO SCH (09:02)
[2020-03-31] MEDS: LACTOBACILLUS ACIDOPHILUS (FLORANEX) TAB PO SCH ×2 (09:03→12:57)
[2020-03-31] MEDS: INSULIN ASPART 100 UNITS/ML 3 ML PEN SC SCH ×2 (09:03→12:53)
[2020-03-31] MEDS: carvediloL 3.125 MG TAB PO SCH (09:03)
[2020-03-31] MEDS: HEPARIN SOD 5,000 UNIT/0.5 ML VIAL SQ SCH (09:05)
[2020-03-31 10:09] LABS: Basophils # (auto) 0.02 K/uL (0-0.2); Basophils % (auto) 0.3 %; Eosinophils # (auto) 0.16 K/uL (0-0.5); Eosinophils % (auto) 2.7 %; Hematocrit (blood only) 37.4 % (37-47); Hemoglobin 12.8 g/dL (12.0-16.0); Immature Granulocytes # (auto) 0.01 K/uL (0.00-0.02); Immature Granulocytes % (auto) 0.2 %; Lymphocytes # (auto) 1.02 K/uL (1.2-3.4); Lymphocytes % (auto) 17.5 %; Mean Corpuscular Hemoglobin 31.7 pg (25-34); Mean Corpuscular Hgb Conc 34.2 g/dL (32-36); Mean Corpuscular Volume 92.6 fL (80-100); Mean Platelet Volume 9.5 fL (7.4-10.4); Monocytes # (auto) 0.64 K/uL (0.11-0.59); Neutrophils # (auto) 3.97 K/uL (1.4-6.5); Neutrophils % (auto) 68.3 %; Platelet Count 241 K/uL (130-400); RDW Coefficient of Variation 13.5 % (11.5-14.5); RDW Standard Deviation 45.9 fL (36.4-46.3); Red Blood Count 4.04 M/uL (4.2-5.4); White Blood Count 5.82 K/uL (4.8-10.8)
[2020-03-31 10:33] LABS: Calcium 9.2 mg/dl (8.5-10.1); Creatinine Clr Calc Pharmacy 21.6 ml/min; Est GFR (African American) 31.8; Est GFR (Non-African American) 27.4; Potassium 4.5 mmol/L (3.5-5.1)
[2020-03-31] MEDS: ACETAMINOPHEN 325 MG TAB PO PRN (11:13)
[2020-03-31] MEDS ORDERED: FLUCONAZOLE 100 MG TAB PO SCH (11:45)
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
== END 2020-03-31 13:56 | disposition home or self-care (01) ==
LOC: 2N 13:05 → ED 13:05 → SUATTDRO 18:18 → 2N 18:41

== ENCOUNTER 2022-05-21 08:49 | Observation (INO) ==
[2022-05-21] MEDS ORDERED: LIDOCAINE/EPINEPH/TETRACAINE 1 EA SYR EXT STA (08:59)
[2022-05-21] MEDS ORDERED: ACETAMINOPHEN 1,000 MG/100 ML VIAL IV STA (08:59)
[2022-05-21] MEDS ORDERED: SODIUM CHLORIDE 0.9% 1000ML 1,000 ML IV SCH (09:00)
[2022-05-21 09:33] LABS: Basophils # (auto) 0.07 K/uL (0-0.2); Basophils % (auto) 0.8 %; Eosinophils # (auto) 0.32 K/uL (0-0.50); Eosinophils % (auto) 3.6 %; Hematocrit (blood only) 36.6 % (34.1-44.9); Hemoglobin 11.9 g/dl (12.0-16.0); Immature Granulocytes # (auto) 0.06 K/uL (0.00-0.02); Immature Granulocytes % (auto) 0.7 %; Lymphocytes # (auto) 1.15 K/uL (1.2-3.4); Lymphocytes % (auto) 13.1 %; Mean Corpuscular Hemoglobin 29.2 pg (25.0-34.0); Mean Corpuscular Hgb Conc 32.5 g/dL (32.0-36.0); Mean Corpuscular Volume 89.7 fL (80.0-100.0); Mean Platelet Volume 9.6 fL (9.4-12.3); Monocytes # (auto) 0.65 K/uL (0.24-0.82); Monocytes % (auto) 7.4 %; Neutrophils # (auto) 6.52 K/uL (1.4-6.5); Neutrophils % (auto) 74.4 %; Platelet Count 271 K/uL (130-400); RDW Coefficient of Variation 14.4 % (11.5-14.5); RDW Standard Deviation 47.4 fL (36.4-46.3); Red Blood Count 4.08 M/uL (3.93-5.22); White Blood Count 8.77 K/ul (4.8-10.8)
[2022-05-21 09:39] LABS: Appearance Urine Clear (Clear); Bacteria Urine Automated Negative (Negative); Bilirubin Urine Negative (Negative); Blood Urine Negative (Negative); Color Urine Yellow; Epithelial Cell Urine Auto 20-30 /lpf (0-5); Glucose Urine UA Negative (Negative); Ketones Urine Negative (Negative); Leukocyte Esterase Urine Negative (Negative); Nitrite Urine Negative (Negative); Protein Urine Trace (Negative); RBC Urine Automated 0-4 /hpf (0-4); Specific Gravity Urine 1.013 (1.000-1.030); Urobilinogen Urine Negative (Negative); pH Urine 5.5 (4.5-7.5)
[2022-05-21 10:14] LABS: Troponin I High Sensitivity 7.1 pg/ml (0-14)
[2022-05-21 10:18] LABS: Albumin Globulin Ratio 1.2 (0.9-2); Albumin Level 3.4 gm/dl (3.4-5.0); BUN Creatinine Ratio 14.1 (10-20); Bilirubin,Total 0.7 mg/dl (0.2-1.0); Calcium 8.9 mg/dl (8.5-10.1); Creatinine Clr Calc Pharmacy 21.1 ml/min; Est GFR (African American) 32.3 ml/min; Est GFR (Non-African American) 27.8 ml/min; Globulin 2.8 gm/dl (2.5-4.0); Magnesium 1.5 mg/dl (1.7-2.4); Potassium 3.8 mmol/L (3.5-5.1); Total Protein 6.2 gm/dl (6.0-8.3)
--- NOTE | 2022-05-21 10:26 | CT Scan Report ---
CT head/brain wo con CLINICAL HISTORY: fall Technique: Contiguous axial CT images of the head were acquired from the base of the skull to the mike thierry without intravenous contrast administration. Images were viewed in brain, subdural and bone [facility]. Automated dose lowering techniques and/or adjustment according to patient size were utilized for this exam. Comparison: Comparison is made to CT head 05/23/2020 Findings: Areas of decreased attenuation are present in the periventricular and subcortical white matter bilate rally consistent with small vessel ischemic disease. Generalized cerebral atrophy with commensurate e nlargement of the ventricles, sulci, and cisterns is also present. There is no acute intracranial hem orrhage or evidence of acute territorial infarction. No shift of the midline structures, mass effect, or extra-axial abnormalities are shown. Atherosclerotic calcifications are present in the intracran ial segments of the internal carotid arteries. Imaged portions of the paranasal sinuses and mastoid air cells are clear. The orbits appear normal. There are no acute fractures of the calvaria or scalp swelling. Impression: No acute intracranial hemorrhage, no evidence of acute territorial infarction or other acute intracra nial disease process. ACT 112: Negative or not required by law. Electronically signed by: Brandin Brown M.D. 05/21/2022 10:24 AM
--- NOTE | 2022-05-21 10:37 | XRay Report ---
SINGLE VIEW CHEST CLINICAL HISTORY: Generalized weakness. Fall. FINDINGS: An AP, portable, upright chest radiograph is compared to study dated 05/23/2020. The heart is enlarged noting atherosclerotic calcification of the thoracic. The pulmonary vasculature is noncontr asted. Chronic interstitial thickening similar to previous. There is bibasilar scarring/atelectasis. The lungs and pleural spaces are otherwise clear. No pneumothorax is seen. The skeletal structures ar e osteopenic. There is a comminuted fracture of the left humeral head. There is chronic widening of t he right AC joint. IMPRESSION: 1. Cardiomegaly with no active disease in the chest. 2. Left humeral head fracture. ACT 112: Negative or not required by law. Electronically signed by: Bob Aranda M.D. 05/21/2022 10:35 AM
--- NOTE | 2022-05-21 10:43 | XRay Report ---
XR humerus LT 2V CLINICAL HISTORY: Fall. Left humerus pain. COMPARISON STUDY: None. FINDINGS: Slightly displaced fracture within the left humeral head/neck. The fracture involving the g reater tuberosity of the humeral head is slightly comminuted. Soft tissue swelling within the left sh oulder. The mid to distal left humerus is intact. No dislocation. IMPRESSION: Slightly displaced left humeral head/neck fracture. ACT 112: Negative or not required by law. Electronically signed by: Patrick Mayo M.D. 05/21/2022 10:41 AM
[2022-05-21] MEDS ORDERED: MoRPHine SULFATE 2 MG/ML CARP IV STA (12:22)
--- NOTE | 2022-05-21 12:31 | History & Physical Report ---
Date of Service May 21, 2022 Assessment & Plan (1) Fall: (2) Fracture of humeral head, left, closed: Plan: - Admit to med surg - PT/OT consults - Ortho consulted - pt son requests [facility] - pain control with tylenol around the clock scheduled due to dementia - avoid narcotics with dementia - Currently resides at [facility] assisted living, case management to help determine if able to go back here or if needs skilled placement (3) Alzheimer's disease: Plan: - Noted (4) Type 2 diabetes mellitus: Plan: - Continue Accu-Cheks ACHS -Holding p.o glimepiride while hospitalized -Check A1c with a.m. labs -Glucose of 200 upon presenting to the ER, unknown if she actually received her morning medications but unlikely given her hyperglycemia (5) Hypertension: Plan: -Continue carvedilol, amlodipine -EMS noted SBP of 80 while at [facility], has been adequate since arriving here in the ER (6) Hypercholesterolemia: Plan: - check lipids with am labs (7) Esophageal reflux: Plan: - Cont omeprazole, will order easy to chew, minced diet (8) Stage 4 chronic kidney disease: Plan: -Noted, stable (9) Vitamin D deficiency: Plan: - cont vit d supplementation (10) Anxiety: (11) MDD (major depressive disorder): Plan: -Continue BuSpar and diazepam prn DVT PPx: - teds, scds, heparin subq CODE: DNR/DNI Dispo: From home, likely to remain in the hospital x 1-2 days, CM to assist with discharge planning History of Present Illness Chief Complaint: Fall Primary Care Provider: [place], [facility] This is an 87 yo F with PMhx of Alzheimer's disease, HTN, DM type II, GERD, MDD and anxiety, diarrhea, who is on hospice care since January 24, 2022. She has been following with [facility] hospice. Her son Keyshawn Hendrickson is present at bedside. He reports that he received a call between 730 and 8:00 this morning from [facility] that the patient had a large fall this morning in the bathroom. EMS were called and transported her here to the hospital. She cannot recall any of the event due to her Alzheimer's dementia but rates her pain in her left shoulder as a 6.5/10. It only hurts whenever she is moving it, but otherwise feels well. She states she has been eating and drinking well without any other complaints. She has watery diarrhea at baseline, C. difficile is pending. Her son reports that she has prolapsed uterus/bladder and has had surgical procedure on it previously. She also has a large rectocele. X-ray of the left shoulder shows a slightly displaced left humeral head fracture. CT of the head is negative for any acute findings. Allergies Allergy/AdvReac Type Severity Reaction Status Date / Time cephalexin Allergy Mild DIARRHEA Verified 04/06/20 13:19 Home Medications Medication Instructions Recorded Confirmed Type carvedilol 3.125 mg tablet 3.125 mg PO BID #60 tabs 11/14/19 05/21/22 Rx amlodipine 2.5 mg tablet 2.5 mg PO BID #60 tabs 05/11/20 05/21/22 Rx acetaminophen 500 mg tablet 500 mg PO Q6 PRN Pain #60 tabs 07/12/20 05/21/22 Rx diazepam 5 mg rectal kit 5 mg MN Q6H PRN anxiety 05/21/22 05/21/22 History glipizide 5 mg tablet 15 mg PO BID 05/21/22 05/21/22 History guaifenesin 600 mg tablet, 600 mg PO BID PRN Cough 05/21/22 05/21/22 History extended release 12 hr (Mucinex) ipratropium bromide 21 mcg (0.03 1 spray intranasal DAILY 05/21/22 05/21/22 History %) nasal spray loratadine 10 mg chewable tablet 10 mg PO DAILY 05/21/22 05/21/22 History lorazepam 1 mg tablet 1 mg PO DAILY PRN Anxiety 05/21/22 05/21/22 History omeprazole 20 mg capsule,delayed 20 mg PO DAILY 05/21/22 05/21/22 History release potassium chloride 10 mEq 10 meq PO DAILY 05/21/22 05/21/22 History tablet,extended release(part/cryst) Past Med/Surg History Medical History (Updated 05/21/22 @ 13:22 by Mariam Lantigua PA-C) Actinic keratosis Anemia Basal cell carcinoma Collagenous colitis Diabetic peripheral neuropathy Diverticulosis Esophageal reflux Hypercholesterolemia Hypertension Lumbar canal stenosis Macular degeneration Osteopenia 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) Rectocele Retinopathy Stage 4 chronic kidney disease Type 2 diabetes mellitus Vitamin D deficiency Surgical History H/O vaginal surgery colpoplexy vaginal approach History of bladder surgery History of dilatation and curettage History of rotator cuff surgery S/P appendectomy S/P hysterectomy Family History (Updated 05/13/21 @ 15:15 by Amanda Dunn) Mother Breast cancer Father Cancer Denies family history of Ovarian cancer Colorectal cancer Social History Smoking Status: Never smoker Second Hand Exposure: No; Hx Alcohol Use: No Hx Substance Use: No Preferred Language: Japanese Communication Ability: Effective Certified Registered Dental Assistant Required: No Beliefs That Will Affect Care: None marital status: / Current Living Situation: Alone Feels Safe at Home: Yes Sunscreen Use: No Assistive Devices: Hearing Aid - Left Review of Systems Review of Systems: Constitutional: No fever, sweats or chills Eyes: No diplopia, no worsening or blurred vision ENT: normal hearing, no trouble swallowing Respiratory: No cough, sputum, dyspnea at rest or on exertion Cardiovascular: No chest pain, tightness or palpitations Abdomen: No pain, nausea, vomiting, + chronic watery diarrhea, no constipation Musculoskeletal: Left shoulder pain, otherwise no joint pain, calf pain, swelling Neurologic: No weakness, numbness/tingling, + balance problems and uses a walker at baseline Psychiatric: History of both anxiety and depression Skin: No rash or itch Physical Exam Physical Exam: General: awake, alert, no apparent distress Head: Normocephalic, atraumatic ENT: PERRL, EOMI, right superior eyebrow with laceration which has been glued in the ER, no pharyngeal exudate, mucous membranes moist Chest: + faint crackles heard on exam at bases bilaterally, more so on the right compared to left, on room air with O2 sats 97% Cardiac: Regular rate and rhythm, faint systolic murmur, no JVD, normal peripheral pulses, good capillary refill Abdominal: NABS x 4 quadrants, soft, nondistended, nontender to palpation, no rebound or guarding Extremities: Left shoulder is in a sling, pain with movement, otherwise normal inspection, no peripheral edema or erythema, calfs nontender to palpation Psych: Normal mood and affect Neuro: Disoriented x3, can recognize her son at bedside, does not know the date or time, cannot recall events this morning,, strength intact bilaterally and rated 4/5, no motor deficits, speech is clear, no peripheral sensory deficits Results & Data Results & Data ([facility]) Vital Signs (Past 12 Hours) Vital Signs Temp Pulse Pulse Resp BP BP Pulse Ox 05/21/22 10:58 66 18 145/95 H 95 05/21/22 09:58 66 18 146/84 H 94 05/21/22 09:11 98 05/21/22 09:11 36 C L 60 20 146/84 H 98 O2 Del Method 05/21/22 10:58 Room Air 05/21/22 09:58 Room Air 05/21/22 09:11 Room Air 05/21/22 09:11 Room Air Laboratory Results 05/21/22 05/21/22 05/21/22 09:27 09:16 09:16 WBC RBC Hgb Hct MCV MCH MCHC RDW Std Deviation RDW Coeff of Andreia Plt Count MPV Immature Gran % (Auto) Neut % (Auto) Lymph % (Auto) Woodruff % (Auto) Eos % (Auto) Baso % (Auto) Neut # (Auto) Lymph # (Auto) Woodruff # (Auto) Eos # (Auto) Baso # (Auto) Immature Gran # (Auto) Sodium 138 Potassium 3.8 Chloride 109 H Carbon Dioxide 24 Anion Gap 5 BUN 23 Creatinine 1.63 H Est Cr Clr Drug Dosing 21.1 Est GFR ( Amer) 32.3 Est GFR (Non-Af Amer) 27.8 BUN/Creatinine Ratio 14.1 Glucose 203 H Calcium 8.9 Magnesium 1.5 L Total Bilirubin 0.7 AST 11 L ALT 8 Alkaline Phosphatase 80 Troponin I High Sens 7.1 Total Protein 6.2 Albumin 3.4 Globulin 2.8 Albumin/Globulin Ratio 1.2 TSH 2.256 Urine Color Urine Appearance Urine pH Ur Specific [place] Urine Protein Urine Glucose (UA) Urine Ketones Urine Blood Urine Nitrite Urine Bilirubin Urine Urobilinogen Ur Leukocyte Esterase Urine WBC (Auto) Urine RBC (Auto) U Hyaline Cast (Auto) U Epithel Cells (Auto) Urine Bacteria (Auto) Stl C. diff Tox B Gene SARS-CoV-2, RNA, NAAT NEGATIVE 05/21/22 05/21/2222 09:16 09:08 09:05 WBC 8.77 RBC 4.08 Hgb 11.9 L Hct 36.6 MCV 89.7 MCH 29.2 MCHC 32.5 RDW Std Deviation 47.4 H RDW Coeff of Andreia 14.4 Plt Count 271 MPV 9.6 Immature Gran % (Auto) 0.7 Neut % (Auto) 74.4 Lymph % (Auto) 13.1 Woodruff % (Auto) 7.4 Eos % (Auto) 3.6 Baso % (Auto) 0.8 Neut # (Auto) 6.52 H Lymph # (Auto) 1.15 L Woodruff # (Auto) 0.65 Eos # (Auto) 0.32 Baso # (Auto) 0.07 Immature Gran # (Auto) 0.06 H Sodium Potassium Chloride Carbon Dioxide Anion Gap BUN Creatinine Est Cr Clr Drug Dosing Est GFR ( Amer) Est GFR (Non-Af Amer) BUN/Creatinine Ratio Glucose Calcium Magnesium Total Bilirubin AST ALT Alkaline Phosphatase Troponin I High Sens Total Protein Albumin Globulin Albumin/Globulin Ratio TSH Urine Color Yellow Urine Appearance Clear Urine pH 5.5 Ur Specific [place] 1.013 Urine Protein Trace H Urine Glucose (UA) Negative Urine Ketones Negative Urine Blood Negative Urine Nitrite Negative Urine Bilirubin Negative Urine Urobilinogen Negative Ur Leukocyte Esterase Negative Urine WBC (Auto) 5-10 H Urine RBC (Auto) 0-4 U Hyaline Cast (Auto) 1-5 U Epithel Cells (Auto) 20-30 H Urine Bacteria (Auto) Negative Stl C. diff Tox B Gene TNP SARS-CoV-2, RNA, NAAT Diagnostic Findings Chest X-Ray 05/21/22 08:59 SINGLE VIEW CHEST CLINICAL HISTORY: Generalized weakness. Fall. FINDINGS: An AP, portable, upright chest radiograph is compared to study dated 05/23/2020. The heart is enlarged noting atherosclerotic calcification of the thoracic. The pulmonary vasculature is noncontrasted. Chronic interstitial thickening similar to previous. There is bibasilar scarring/atelectasis. The lungs and pleural spaces are otherwise clear. No pneumothorax is seen. The skeletal structures are osteopenic. There is a comminuted fracture of the left humeral head. There is chronic widening of the right AC joint. IMPRESSION: 1. Cardiomegaly with no active disease in the chest. 2. Left humeral head fracture. ACT 112: Negative or not required by law. Electronically signed by: Bob Aranda M.D. 05/21/2022 10:[address] 05/21/22 08:59 CT head/brain wo con CLINICAL HISTORY: fall Technique: Contiguous axial CT images of the head were acquired from the base of the skull to the vertex without intravenous contrast administration. Images were viewed in brain, subdural and bone windows. Automated dose lowering techniques and/or adjustment according to patient size were utilized for this exam. Comparison: Comparison is made to CT head 05/23/2020 Findings: Areas of decreased attenuation are present in the periventricular and subcortical white matter bilaterally consistent with small vessel ischemic disease. Generalized cerebral atrophy with commensurate enlargement of the ventricles, sulci, and cisterns is also present. There is no acute intracranial hemorrhage or evidence of acute territorial infarction. No shift of the midline structures, mass effect, or extra-axial abnormalities are shown. Atherosclerotic calcifications are present in the intracranial segments of the internal carotid arteries. Imaged portions of the paranasal sinuses and mastoid air cells are clear. The orbits appear normal. There are no acute fractures of the calvaria or scalp swelling. Impression: No acute intracranial hemorrhage, no evidence of acute territorial infarction or other acute intracranial disease process. ACT 112: Negative or not required by law. Electronically signed by: Brandin Brown M.D. 05/21/2022 10:24 AM Humerus X-Ray 05/21/22 08:59 XR humerus LT 2V CLINICAL HISTORY: Fall. Left humerus pain. COMPARISON STUDY: None. FINDINGS: Slightly displaced fracture within the left humeral head/neck. The fracture involving the greater tuberosity of the humeral head is slightly comminuted. Soft tissue swelling within the left shoulder. The mid to distal left humerus is intact. No dislocation. IMPRESSION: Slightly displaced left humeral head/neck fracture. ACT 112: Negative or not required by law. Electronically signed by: Patrick Mayo M.D. 05/21/2022 10:41 AM Code Status & VTE Plan Code Status DNR/DNI Supervising Physician Co-Signing Physician Notes Attending addendum: The patient was seen and examined in emergency room She is an 87-year-old female with significant past medical history including Alzheimer's dementia with ambulatory dysfunction and history of falls on hospice care before has had a fall at [facility] this morning She has left humeral fracture following the fall without any loss of consciousness Remains asymptomatic at rest in the emergency room On examination Lying in bed comfortably Hemodynamically stable Chest-minimal crackles at the bases Heart-S1-S2, regular Abdomen-benign Extremities-no edema 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 Generalized weakness but moving all limbs Her admission labs, imaging studies and EKG reviewed Has left humeral fracture status post fall without any loss of consciousness with significant past medical history and he is on hospice care at [facility] Ortho will be consulted The patient herself does not want to go for any surgical procedure Agree with assessment and plan as outlined above by Mariam meadows
--- NOTE | 2022-05-21 14:49 | XRay Report ---
XR shoulder LT min 2V routine CLINICAL HISTORY: proximal humerus fracture COMPARISON: Left humerus radiographs performed earlier today. FINDINGS: Alignment of the left acromioclavicular and glenohumeral joints is noted. Note is made of an acute mildly displaced fracture of the left humeral head and neck. Fracture extends through the gr eater tuberosity. Fracture displacement may have slightly increased since prior exam. Moderate degene rative changes of the left acromioclavicular joint are present IMPRESSION: Acute mildly displaced left humeral head and neck fracture. Fracture displacement may hav e slightly increased since prior exam. ACT 112: Negative or not required by law. Electronically signed by: Chucho Camargo M.D. 05/21/2022 2:47 PM
--- NOTE | 2022-05-21 15:17 | Emergency Department Note ---
Impression & Plan Fall, Closed left humeral fracture, CHI (closed head injury), Diarrhea, Laceration of eyebrow, right ED Provider Note INFORMANT: Patient, EMS and family ED PROVIDER(S): Guille Tobin MD CHIEF COMPLAINT: Fall PLAN: Disposition: Admitted Condition: Good Outpatient prescription management: none Referral: None MEDICAL DECISION MAKING: Patient presented because of a fall. X-ray imaging was performed along with blood work, urinalysis, and CT of the head. The patient was found to have a proximal left humerus fracture. Head CT was negative. The patient's blood work was unremarkable except for some mild hypomagnesemia and baseline chronic renal insufficiency. ECG did not show any significant acute changes. The patient's right eyebrow laceration was repaired by Rose Sebastian PA-C. Please see her note. The patient was quite uncomfortable even though she received Tylenol IV. She was given a small dose of morphine. I discussed treatment options with the patient's family. They would feel most comfortable with her coming in here for pain management and orthopedic consultation. She was found to have brief hypotension after the initial fall. She had not been hypotensive during her time in the ER. Further management was felt to be appropriate with the hospitalist service. Consultation was made with the [facility] team and the patient was evaluated in the ER for further management. Triage Nursing notes reviewed and agree them. Vital Signs: reviewed and remarkable for no significant abnormalities Differential diagnosis: Fracture, dislocation, intracranial injury, Infection, dehydration, metabolic abnormality, hypo/hyperglycemia, electrolyte disturbance, anemia, hypoxia, cardiac sources, intracerebral event, toxicologic, neurologic, as well as other pathologies. Diagnostics interpreted by me: ECG: twelve-lead ECG reveals a normal sinus rhythm with sinus arrhythmia at 63 bpm. Left anterior fascicular block. No ST depression. [address] elevation noted in V2 only without any reciprocal changes. Cardiac Monitoring: Cardiac monitoring ordered by me: The patient was placed on continuous cardiac monitoring and observed. It revealed a normal sinus rhythm at 73 beats per minute without ectopy or evidence of dysrhythmia. Imaging studies: Head CT: A noncontrast CT scan of the head was performed and was negative for tumor, fracture, intracranial hemorrhage, or other acute pathology. Chest x-ray. Findings: A chest x-ray was performed and revealed no pneumothorax, effusion, infiltrate, pulmonary edema, free air under the diaphragm, or wide mediastinum. There is a left proximal humerus fracture. X-ray imaging of the left humerus reveals a mild impacted left proximal humerus fracture. HPI: The patient is a 87year old female who presents to the Emergency Room with complaints of a fall. This started this morning and is described as brief without loss of consciousness. Patient did strike her right eyebrow area and suffered a small laceration.. The patient also notes the following associated symptoms, pain in the left arm. There was concern for shoulder injury. Patient is residing at a [facility] and she is therefore dementia. Family is present and helps with her history. The patient has been given no medication for relieving factors. Current pain is rated as 4/10. [address] a sling and swath. Pt denies LOC, headache, fevers, chills, diaphoresis, visual changes, neck pain, chest pain, breathing difficulties, nausea, vomiting, abdominal pain, back pain, melena, hematochezia, urinary symptoms, or other complaints. ROS: See above HPI for pertinent positives & negatives. Limited secondary to dementia. PAST MEDICAL HISTORY:See Below , dementia, UTI PAST SURGICAL HISTORY:See Below, FAMILY HISTORY:See Below SOCIAL HISTORY:See Below, retired HOME MEDICATIONS:See Below ALLERGIES:See Below VITALS:See Below PHYSICAL EXAMINATION: GENERAL: Awake, alert, uncomfortable-appearing, in no distress HENT: Normocephalic, small right eyebrow laceration noted with bleeding controll ed. Oropharynx unremarkable. EYES: Normal conjunctiva. Sclera non-icteric. PERRLA. EOMI. NECK: Inspection normal. Non-tender. Supple. No nuchal rigidity. FROM. No masses. RESPIRATORY: Clear to auscultation. No wheezes. No rales. Normal respiratory effort. CARDIAC: Normal rate. Normal rhythm. No murmurs. No rubs. Extremities warm and well perfused. Pulses equal. No JVD. GI: Soft, non-distended. No tenderness to palpation. No rebound or guarding. No masses. RECTAL: Deferred. MUSCULOSKELETAL: There is tenderness to palpation around the left shoulder joint without obvious dislocation. Range of motion is limited secondary to pain. The distal humerus, elbow and remainder of the left upper extremity is nontender. Right upper and both lower extremities are atraumatic. Chest examination reveals no tenderness. The back is symmetrical on inspection without obvious abnormality. There is no CVA tenderness to palpation. No joint edema. LOWER EXTREMITIES: Calves are equal size bilaterally and non-tender. No edema. No discoloration. NEURO: Demented sensorium. No sensory or motor deficits noted. SKIN: No rash or jaundice noted. 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) Rectocele Retinopathy Stage 4 chronic kidney disease Type 2 diabetes mellitus Vitamin D deficiency Surgical History H/O vaginal surgery colpoplexy vaginal approach History of bladder surgery History of dilatation and curettage History of rotator cuff surgery S/P appendectomy S/P hysterectomy Family History (Updated 05/13/21 @ 15:15 by Amanda Dunn) Mother Breast cancer Father Cancer Denies family history of Ovarian cancer Colorectal cancer Social History Smoking Status: Never smoker Second Hand Exposure: No; Hx Alcohol Use: No Hx Substance Use: No Preferred Language: Kinyarwanda Communication Ability: Effective Buffer Nickel Required: No Beliefs That Will Affect Care: None marital status: / Current Living Situation: Alone Feels Safe at Home: Yes Sunscreen Use: No Assistive Devices: Hearing Aid - Left Allergies Allergies Allergy/AdvReac Type Severity Reaction Status Date / Time cephalexin Allergy Mild DIARRHEA Verified 04/06/20 13:19 Home Meds Home Medications Medication Instructions Recorded Confirmed diazepam 5 mg rectal kit 5 mg NE Q6H PRN anxiety 05/21/22 05/21/22 glipizide 5 mg tablet 15 mg PO BID 05/21/22 05/21/22 guaifenesin 600 mg tablet, 600 mg PO BID PRN Cough 05/21/22 05/21/22 extended release 12 hr (Mucinex) ipratropium bromide 21 mcg (0.03 1 spray intranasal DAILY 05/21/22 05/21/22 %) nasal spray loratadine 10 mg chewable tablet 10 mg PO DAILY 05/21/22 05/21/22 lorazepam 1 mg tablet 1 mg PO DAILY PRN Anxiety 05/21/22 05/21/22 omeprazole 20 mg capsule,delayed 20 mg PO DAILY 05/21/22 05/21/22 release potassium chloride 10 mEq 10 meq PO DAILY 05/21/22 05/21/22 tablet,extended release(part/cryst) Previous Rx's Medication Instructions Recorded carvedilol 3.125 mg tablet 3.125 mg PO BID #60 tabs 11/14/19 amlodipine 2.5 mg tablet 2.5 mg PO BID #60 tabs 05/11/20 acetaminophen 500 mg tablet 500 mg PO Q6 PRN Pain #60 tabs 07/12/20 Results & Data (ED) Vital Signs Vital Signs - 24 hr 05/21/22 09:11 05/21/22 09:11 05/21/22 09:58 Temperature 36 C L Temperature Source Oral Pulse Rate 60 Pulse Rate [Right Apical] 66 Pulse Rhythm Regular Pulse Rhythm [Right Apical] Pulse Strength Normal Respiratory Rate 20 18 Respiratory Effort / Characteristics Non-Labored Spontaneous Respiratory Depth Normal Normal Respiratory Pattern Blood Pressure 146/84 H Blood Pressure [Right Arm] 146/84 H Blood Pressure Mean 104 Blood Pressure Mean [Right Arm] 104 Pulse Oximetry 98 98 94 Oxygen Delivery Method Room Air Room Air Room Air Sepsis Recent Fever Within 48 Hours No Sepsis New/Unexplained Change in Mental Status N/A Sepsis Action Taken by Nursing No Action Required 05/21/22 10:58 05/21/22 12:42 Temperature Temperature Source Pulse Rate Pulse Rate [Right Apical] 66 73 Pulse Rhythm Pulse Rhythm [Right Apical] Regular Pulse Strength Respiratory Rate 18 17 Respiratory Effort / Characteristics Non-Labored Respiratory Depth Normal Respiratory Pattern Regular Blood Pressure Blood Pressure [Right Arm] 145/95 H 140/77 Blood Pressure Mean Blood Pressure Mean [Right Arm] 111 98 Pulse Oximetry 95 97 Oxygen Delivery Method Room Air Room Air Sepsis Recent Fever Within 48 Hours Sepsis New/Unexplained Change in Mental Status Sepsis Action Taken by Nursing Laboratory Data Result diagrams: 05/21/22 09:16 05/21/22 09:16 Lab Results 05/21/22 05/21/22 05/21/22 Range/Units 09:05 09:08 09:16 WBC 8.77 (4.8-10.8) K/ul RBC 4.08 (3.93-5.22) M/uL Hgb 11.9 L (12.0-16.0) g/dl Hct 36.6 (34.1-44.9) % MCV 89.7 (80.0-100.0) fL MCH 29.2 (25.0-34.0) pg MCHC 32.5 (32.0-36.0) g/dL RDW Std Deviation 47.4 H (36.4-46.3) fL RDW Coeff of Andreia 14.4 (11.5-14.5) % Plt Count 271 (130-400) K/uL MPV 9.6 (9.4-12.3) fL Immature Gran % (Auto) 0.7 % Neut % (Auto) 74.4 % Lymph % (Auto) 13.1 % Lanier % (Auto) 7.4 % Eos % (Auto) 3.6 % Baso % (Auto) 0.8 % Neut # (Auto) 6.52 H (1.4-6.5) K/uL Lymph # (Auto) 1.15 L (1.2-3.4) K/uL Lanier # (Auto) 0.65 (0.24-0.82) K/uL Eos # (Auto) 0.32 (0-0.50) K/uL Baso # (Auto) 0.07 (0-0.2) K/uL Immature Gran # (Auto) 0.06 H (0.00-0.02) K/uL Sodium (136-145) mmol/L Potassium (3.5-5.1) mmol/L Chloride (98-107) mmol/L Carbon Dioxide (21-32) mmol/L Anion Gap (3-11) BUN (6-23) mg/dl Creatinine (0.6-1.2) mg/dl Est Cr Clr Drug Dosing ml/min Est GFR ( Amer) ml/min Est GFR (Non-Af Amer) ml/min BUN/Creatinine Ratio (10-20) Glucose (70-99(Fasting)) mg/dl Calcium (8.5-10.1) mg/dl Magnesium (1.7-2.4) mg/dl Total Bilirubin (0.2-1.0) mg/dl AST (13-39) U/L ALT (7-52) U/L Alkaline Phosphatase (34-104) U/L Troponin I High Sens (0-14) pg/ml Total Protein (6.0-8.3) gm/dl Albumin (3.4-5.0) gm/dl Globulin (2.5-4.0) gm/dl Albumin/Globulin Ratio (0.9-2) TSH (0.300-4.500) uIu/ml Urine Color Yellow Urine Appearance Clear (Clear) Urine pH 5.5 (4.5-7.5) Ur Specific [place] 1.013 (1.000-1.030) Urine Protein Trace H (Negative) Urine Glucose (UA) Negative (Negative) Urine Ketones Negative (Negative) Urine Blood Negative (Negative) Urine Nitrite Negative (Negative) Urine Bilirubin Negative (Negative) Urine Urobilinogen Negative (Negative) Ur Leukocyte Esterase Negative (Negative) Urine WBC (Auto) 5-10 H (0-5) /hpf Urine RBC (Auto) 0-4 (0-4) /hpf U Hyaline Cast (Auto) 1-5 (0-5) /lpf U Epithel Cells (Auto) 20-30 H (0-5) /lpf Urine Bacteria (Auto) Negative (Negative) Stl C. diff Tox B Gene TNP SARS-CoV-2, RNA, NAAT (NEGATIVE) 05/21/22 05/21/22 05/21/22 Range/Units 09:16 09:16 09:27 WBC (4.8-10.8) K/ul RBC (3.93-5.22) M/uL Hgb (12.0-16.0) g/dl Hct (34.1-44.9) % MCV (80.0-100.0) fL MCH (25.0-34.0) pg MCHC (32.0-36.0) g/dL RDW Std Deviation (36.4-46.3) fL RDW Coeff of Andreia (11.5-14.5) % Plt Count (130-400) K/uL MPV (9.4-12.3) fL Immature Gran % (Auto) % Neut % (Auto) % Lymph % (Auto) % Lanier % (Auto) % Eos % (Auto) % Baso % (Auto) % Neut # (Auto) (1.4-6.5) K/uL Lymph # (Auto) (1.2-3.4) K/uL Lanier # (Auto) (0.24-0.82) K/uL Eos # (Auto) (0-0.50) K/uL Baso # (Auto) (0-0.2) K/uL Immature Gran # (Auto) (0.00-0.02) K/uL Sodium 138 (136-145) mmol/L Potassium 3.8 (3.5-5.1) mmol/L Chloride 109 H (98-107) mmol/L Carbon Dioxide 24 (21-32) mmol/L Anion Gap 5 (3-11) BUN 23 (6-23) mg/dl Creatinine 1.63 H (0.6-1.2) mg/dl Est Cr Clr Drug Dosing 21.1 ml/min Est GFR ( Amer) 32.3 ml/min Est GFR (Non-Af Amer) 27.8 ml/min BUN/Creatinine Ratio 14.1 (10-20) Glucose 203 H (70-99(Fasting)) mg/dl Calcium 8.9 (8.5-10.1) mg/dl Magnesium 1.5 L (1.7-2.4) mg/dl Total Bilirubin 0.7 (0.2-1.0) mg/dl AST 11 L (13-39) U/L ALT 8 (7-52) U/L Alkaline Phosphatase 80 (34-104) U/L Troponin I High Sens 7.1 (0-14) pg/ml Total Protein 6.2 (6.0-8.3) gm/dl Albumin 3.4 (3.4-5.0) gm/dl Globulin 2.8 (2.5-4.0) gm/dl Albumin/Globulin Ratio 1.2 (0.9-2) TSH 2.256 (0.300-4.500) uIu/ml Urine Color Urine Appearance (Clear) Urine pH (4.5-7.5) Ur Specific [place] (1.000-1.030) Urine Protein (Negative) Urine Glucose (UA) (Negative) Urine Ketones (Negative) Urine Blood (Negative) Urine Nitrite (Negative) Urine Bilirubin (Negative) Urine Urobilinogen (Negative) Ur Leukocyte Esterase (Negative) Urine WBC (Auto) (0-5) /hpf Urine RBC (Auto) (0-4) /hpf U Hyaline Cast (Auto) (0-5) /lpf U Epithel Cells (Auto) (0-5) /lpf Urine Bacteria (Auto) (Negative) Stl C. diff Tox B Gene SARS-CoV-2, RNA, NAAT NEGATIVE (NEGATIVE) Administered Medications Sodium Chloride (Nss 1000ml) 1,000 mls @ 125 mls/hr IV .Q8H BRIA Stop: 05/21/22 16:59 Last Infusion: 05/21/22 10:00 Dose: 0 mls/hr Documented By: Admin: 05/21/22 09:39 Dose: 125 mls/hr Documented By: EVA Discontinued Medications Acetaminophen (Ofirmev) 1,000 mg in 100 mls @ 400 mls/hr IV NOW STA Stop: 05/21/22 09:13 Last Infusion: 05/21/22 10:00 Dose: 0 mls/hr Documented By: Admin: 05/21/22 09:39 Dose: 400 mls/hr Documented By: EVA Lidocaine (Lidocaine/Epineph/Tetracaine 1 Ea Syr) 1 each EXT NOW STA Stop: 05/21/22 09:00 Last Admin: 05/21/22 09:39 Dose: 1 each Documented By: EVA Morphine Sulfate (Morphine Sulfate 2 Mg/Ml Carp) 2 mg IV NOW STA Stop: 05/21/22 12:23 Last Admin: 05/21/22 12:37 Dose: 2 mg Documented By: EVA Imaging Data Radiologist's Impression: Chest X-Ray 05/21/22 08:59 SINGLE VIEW CHEST CLINICAL HISTORY: Generalized weakness. Fall. FINDINGS: An AP, portable, upright chest radiograph is compared to study dated 05/23/2020. The heart is enlarged noting atherosclerotic calcification of the thoracic. The pulmonary vasculature is noncontrasted. Chronic interstitial thickening similar to previous. There is bibasilar scarring/atelectasis. The lungs and pleural spaces are otherwise clear. No pneumothorax is seen. The skeletal structures are osteopenic. There is a comminuted fracture of the left humeral head. There is chronic widening of the right AC joint. IMPRESSION: 1. Cardiomegaly with no active disease in the chest. 2. Left humeral head fracture. ACT 112: Negative or not required by law. Electronically signed by: Bob Aranda M.D. 05/21/2022 10:[address] 05/21/22 08:59 CT head/brain wo con CLINICAL HISTORY: fall Technique: Contiguous axial CT images of the head were acquired from the base of the skull to the vertex without intravenous contrast administration. Images were viewed in brain, subdural and bone windows. Automated dose lowering techniques and/or adjustment according to patient size were utilized for this exam. Comparison: Comparison is made to CT head 05/23/2020 Findings: Areas of decreased attenuation are present in the periventricular and subcortical white matter bilaterally consistent with small vessel ischemic disease. Generalized cerebral atrophy with commensurate enlargement of the ventricles, sulci, and cisterns is also present. There is no acute intracranial hemorrhage or evidence of acute territorial infarction. No shift of the midline structures, mass effect, or extra-axial abnormalities are shown. Atheroscler otic calcifications are present in the intracranial segments of the internal carotid arteries. Imaged portions of the paranasal sinuses and mastoid air cells are clear. The orbits appear normal. There are no acute fractures of the calvaria or scalp swelling. Impression: No acute intracranial hemorrhage, no evidence of acute territorial infarction or other acute intracranial disease process. ACT 112: Negative or not required by law. Electronically signed by: Brandin Brown M.D. 05/21/2022 10:24 AM Humerus X-Ray 05/21/22 08:59 XR humerus LT 2V CLINICAL HISTORY: Fall. Left humerus pain. COMPARISON STUDY: None. FINDINGS: Slightly displaced fracture within the left humeral head/neck. The fracture involving the greater tuberosity of the humeral head is slightly comminuted. Soft tissue swelling within the left shoulder. The mid to distal left humerus is intact. No dislocation. IMPRESSION: Slightly displaced left humeral head/neck fracture. ACT 112: Negative or not required by law. Electronically signed by: Patrick Mayo M.D. 05/21/2022 10:41 AM Shoulder X-Ray 05/21/22 13:35 XR shoulder LT min 2V routine CLINICAL HISTORY: proximal humerus fracture COMPARISON: Left humerus radiographs performed earlier today. FINDINGS: Alignment of the left acromioclavicular and glenohumeral joints is noted. Note is made of an acute mildly displaced fracture of the left humeral head and neck. Fracture extends through the greater tuberosity. Fracture displacement may have slightly increased since prior exam. Moderate degenerative changes of the left acromioclavicular joint are present IMPRESSION: Acute mildly displaced left humeral head and neck fracture. Fracture displacement may have slightly increased since prior exam. ACT 112: Negative or not required by law. Electronically signed by: Chucho Camargo M.D. 05/21/2022 2:47 PM Discharge Plan Visit Data Chief Complaint: Fall ED Provider: Guille Tobin Discharge Problem: Fall, Closed left humeral fracture, CHI (closed head injury), Diarrhea, Laceration of eyebrow, right Forms Stand Alone Forms: My [facility] Prescriptions Prescriptions: No Action carvedilol 3.125 mg tablet 3.125 mg PO BID Qty: 60 5RF amlodipine 2.5 mg tablet 2.5 mg PO BID Qty: 60 5RF acetaminophen 500 mg tablet 500 mg PO Q6 PRN (Reason: Pain) Qty: 60 0RF diazepam 5 mg Kit 5 mg NE Q6H PRN (Reason: anxiety) omeprazole 20 mg capsule,delayed release(DR/EC) 20 mg PO DAILY lorazepam 1 mg Tablet 1 mg PO DAILY PRN (Reason: Anxiety) ipratropium bromide 21 mcg (0.03 %) spray,non-aerosol 1 spray INTRANASAL DAILY potassium chloride 10 mEq tablet,ER particles/crystals 10 meq PO DAILY guaifenesin [Mucinex] 600 mg Tablet Extended Release 12hr 600 mg PO BID PRN (Reason: Cough) loratadine 10 mg Tablet,Chewable 10 mg PO DAILY glipizide 5 mg tablet 15 mg PO BID Referrals Ref[facility]: [facility] [Primary Care Provider] -
--- NOTE | 2022-05-21 15:20 | Orthopedic Consultation ---
Date of Service May 21, 2022 Assessment & Plan (1) Closed left humeral fracture: -No acute surgical intervention -Will need to remain in sling for comfort, expect she will require this for 4-6 weeks -Agree w/ PT/OT for discharge planning, OK to come out of sling for gentle assisted AROM at the shoulder, elbow, wrist -Pain control w/ periodic ice and tylenol; can consider tramadol if tylenol is not effective in managing her pain. -Pt's son updated at bedside and happy with care plan -Rest of care per primary team. Disposition: Per primary team. OK for discharge from Ortho perspective if pain adequately controlled and PT/OT does not feel she needs [facility] care. Will follow along while admitted. Follow up as an outpatient in 2-4 weeks for repeat X-rays. Discussed w/ Dr. Robbins History of Present Illness Reason for Consultation: L humeral head/neck fx . Requesting Physician: Mariam Jacques PA-C . Attending Physician: Guille Tobin MD Pt is an 87 y/o/f with PMhx of Alzheimer's disease, HTN, DM type II, GERD, MDD and anxiety, diarrhea, who is on hospice care since January 24, 2022. She is a resident of [facility]. This morning she was brought to [facility] ED via ambulance after she suffered an unwitnessed fall in the bathroom at home. Pt unable to provide much history d/t history of advanced Alzheimer's. She has severe left shoulder pain in ED and humerus X rays showed a mildly displaced fracture at the L humeral head/neck. She has been plalced in a sling. Orthopedics consulted for management of fracture. Pt unable to provide any further on our evaluation. Allergies Allergy/AdvReac Type Severity Reaction Status Date / Time cephalexin Allergy Mild DIARRHEA Verified 04/06/20 13:19 Home Medications Medication Instructions Recorded Confirmed Type carvedilol 3.125 mg tablet 3.125 mg PO BID #60 tabs 11/14/19 05/21/22 Rx amlodipine 2.5 mg tablet 2.5 mg PO BID #60 tabs 05/11/20 05/21/22 Rx acetaminophen 500 mg tablet 500 mg PO Q6 PRN Pain #60 tabs 07/12/20 05/21/22 Rx diazepam 5 mg rectal kit 5 mg [place] Q6H PRN anxiety 05/21/22 05/21/22 History glipizide 5 mg tablet 15 mg PO BID 05/21/22 05/21/22 History guaifenesin 600 mg tablet, 600 mg PO BID PRN Cough 05/21/22 05/21/22 History extended release 12 hr (Mucinex) ipratropium bromide 21 mcg (0.03 1 spray intranasal DAILY 05/21/22 05/21/22 History %) nasal spray loratadine 10 mg chewable tablet 10 mg PO DAILY 05/21/22 05/21/22 History lorazepam 1 mg tablet 1 mg PO DAILY PRN Anxiety 05/21/22 05/21/22 History omeprazole 20 mg capsule,delayed 20 mg PO DAILY 05/21/22 05/21/22 History release potassium chloride 10 mEq 10 meq PO DAILY 05/21/22 05/21/22 History tablet,extended release(part/cryst) Past Med/Surg History Medical History (Updated 05/21/22 @ 15:17 by Guille Tobin MD) Actinic keratosis Anemia Basal cell carcinoma Collagenous colitis Diabetic peripheral neuropathy Diverticulosis Esophageal reflux Hypercholesterolemia Hypertension Lumbar canal stenosis Macular degeneration Osteopenia 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) Rectocele Retinopathy Stage 4 chronic kidney disease Type 2 diabetes mellitus Vitamin D deficiency Surgical History H/O vaginal surgery colpoplexy vaginal approach History of bladder surgery History of dilatation and curettage History of rotator cuff surgery S/P appendectomy S/P hysterectomy Family History (Updated 05/13/21 @ 15:15 by Amanda Dunn) Mother Breast cancer Father Cancer Denies family history of Ovarian cancer Colorectal cancer Social History Smoking Status: Never smoker Second Hand Exposure: No; Hx Alcohol Use: No Hx Substance Use: No Preferred Language: Turkmen 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 Physical Exam General: Chronically ill, confused elderly female resting in bed in NAD . LUE: She has severe L shoulder tenderness and swelling. She has very guarded motion at the shoulder and elbow. She can flex/extend at wrist and fingers. She can form a close fist and raise her left thumb. Distally NVI. Results & Data Results & Data Laboratory Results Reviewed. . Diagnostic Findings L humerus and shoulder XRs showing mildly displaced humeral head/neck fracture . PG Care Time/CCT Total # of Minutes Spent Total Time Spent with Patient: Total time spent is greater than 50% in coordination of care (as documented) at patient's floor/unit and/or counseling patient: Coding Level of Care Code 08153 Inpt Consult Level 3 Diagnoses Closed left humeral fracture S42.302A
--- NOTE | 2022-05-21 16:01 | Emergency Department Note ---
ED Visit Note Dr. Tobin evaluated the patient in the Emergency Department today following a fall. Please see their dictation for full history of present illness and emergency department course. I was asked to assist with repair of the laceration. On exam, the patient was noted to have a 1.5 cm laceration just above the right brow. No active bleeding. No involvement of the subcutaneous. Mild surrounding edema without significant tenderness to palpation. I did discuss methods of repair with the patient and her family at bedside. They declined repair with suture, though I did suggest this as this would likely provide the best cosmetic result, however they continued to decline and opted for repair with Dermabond. The patient's laceration was washed out with copious amounts of saline. The would edges were reapproximated with Dermabond glue x 3, allowing the layers to dry between application. Steri-strips were placed topically. She tolerated the procedure well without acute complications.
[2022-05-21] MEDS ORDERED: ONDANSETRON INJ 2 MG/ML 2 ML VIAL IV PRN (17:14)
[2022-05-21] MEDS ORDERED: GLUCOSE 40% GEL 15 GM TUBE PO PRN (17:14)
[2022-05-21] MEDS ORDERED: DEXTROSE 50% 50 ML SYRINGE IV PRN (17:14)
[2022-05-21] MEDS ORDERED: CARBOHYDRATES FOR HYPOGLYCEMIA PO PRN (17:14)
[2022-05-21] MEDS ORDERED: GLUCOSE 10 TAB/TUBE PO PRN (17:14)
[2022-05-21] MEDS ORDERED: GLUCAGON FOR INJ 1 MG VIAL SQ PRN (17:14)
[2022-05-21] MEDS: INSULIN ASPART PER UNIT SC SCH ×2 (18:08→22:08)
[2022-05-21] MEDS: ACETAMINOPHEN 500 MG TAB PO SCH (18:12)
[2022-05-21] MEDS: HEPARIN SOD 5,000 UNIT/0.5 ML VIAL SQ SCH (21:16)
--- NOTE | 2022-05-21 22:44 | Electrocardiogram Report ---
Test Reason : Blood Pressure : / mmHG Vent. Rate : 063 BPM Atrial Rate : 063 BPM P-R Int : 186 ms QRS Dur : 110 ms QT Int : 440 ms P-R-T Axes : 067 -52 056 degrees QTc Int : 450 ms Normal sinus rhythm with sinus arrhythmia Left anterior fascicular block Minimal voltage criteria for LVH, may be normal variant Abnormal ECG When compared with ECG of 23-MAY-2020 11:33, Premature supraventricular complexes are no longer Present Confirmed by Raman Salas ([id number]) on 05/21/2022 10:44:02 PM Referred By: Confirmed By:Raman Salas
[2022-05-22] MEDS ORDERED: OLANZapine 10 MG/2.1 ML SDV IM PRN (01:07)
[2022-05-22] MEDS ORDERED: OLANZapine 10 MG/2.1 ML SDV IM STA (01:07)
[2022-05-22] MEDS: ACETAMINOPHEN 500 MG TAB PO SCH ×3 (01:20→17:03)
[2022-05-22 07:56] LABS: Hematocrit (blood only) 34.7 % (34.1-44.9); Hemoglobin 11.6 g/dl (12.0-16.0); Mean Corpuscular Hemoglobin 29.1 pg (25.0-34.0); Mean Corpuscular Hgb Conc 33.4 g/dL (32.0-36.0); Mean Corpuscular Volume 87.2 fL (80.0-100.0); Mean Platelet Volume 9.9 fL (9.4-12.3); Platelet Count 293 K/uL (130-400); RDW Coefficient of Variation 14.1 % (11.5-14.5); RDW Standard Deviation 45.1 fL (36.4-46.3); Red Blood Count 3.98 M/uL (3.93-5.22); White Blood Count 9.19 K/ul (4.8-10.8)
[2022-05-22] MEDS: HEPARIN SOD 5,000 UNIT/0.5 ML VIAL SQ SCH (08:00)
[2022-05-22 08:25] LABS: Albumin Globulin Ratio 1.2 (0.9-2); Albumin Level 3.3 gm/dl (3.4-5.0); Bilirubin,Total 0.9 mg/dl (0.2-1.0); Calcium 8.6 mg/dl (8.5-10.1); Creatinine Clr Calc Pharmacy 26.3 ml/min; Est GFR (Non-African American) 36.3 ml/min; Globulin 2.8 gm/dl (2.5-4.0); Total Protein 6.1 gm/dl (6.0-8.3)
[2022-05-22 08:44] LABS: Estimated Average Glucose 197 mg/dl; Hemoglobin A1C 8.5 % (4.5-5.6)
[2022-05-22] MEDS: INSULIN ASPART PER UNIT SC SCH ×3 (09:11→17:50)
[2022-05-22] MEDS ORDERED: POTASSIUM CHLORIDE CRTAB 20 MEQ TABCR PO ONE ×2 (09:21→16:00)
[2022-05-22] MEDS ORDERED: MAGNESIUM SULFATE / D5W 1 GM/100 ML BAG IV ONE (10:00)
--- NOTE | 2022-05-22 13:49 | Discharge Summary ---
Date of Service May 22, 2022 Admission HPI Per Admitting Provider This is an 87 yo F with PMhx of Alzheimer's disease, HTN, DM type II, GERD, MDD and anxiety, diarrhea, who is on hospice care since January 24, 2022. She has been following with [facility]. Her son Keyshawn Hendrickson is present at bedside. He reports that he received a call between 730 and 8:00 this morning from [facility] that the patient had a large fall this morning in the bathroom. EMS were called and transported her here to the hospital. She cannot recall any of the event due to her Alzheimer's dementia but rates her pain in her left shoulder as a 6.5/10. It only hurts whenever she is moving it, but otherwise feels well. She states she has been eating and drinking well without any other complaints. She has watery diarrhea at baseline, C. difficile is pending. Her son reports that she has prolapsed uterus/bladder and has had surgical procedure on it previously. She also has a large rectocele. X-ray of the left shoulder shows a slightly displaced left humeral head fracture. CT of the head is negative for any acute findings. Admission Exam Per Admitting Provider General: awake, alert, no apparent distress Head: Normocephalic, atraumatic ENT: PERRL, EOMI, right superior eyebrow with laceration which has been glued in the ER, no pharyngeal exudate, mucous membranes moist Chest: + faint crackles heard on exam at bases bilaterally, more so on the right compared to left, on room air with O2 sats 97% Cardiac: Regular rate and rhythm, faint systolic murmur, no JVD, normal peripheral pulses, good capillary refill Abdominal: NABS x 4 quadrants, soft, nondistended, nontender to palpation, no rebound or guarding Extremities: Left shoulder is in a sling, pain with movement, otherwise normal inspection, no peripheral edema or erythema, calfs nontender to palpation Psych: Normal mood and affect Neuro: Disoriented x3, can recognize her son at bedside, does not know the date or time, cannot recall events this morning,, strength intact bilaterally and rated 4/5, no motor deficits, speech is clear, no peripheral sensory deficits Principal Diagnosis FALL, LEFT HUMERAL HEAD FRACTURE Discharge Exam General: awake, alert, no apparent distress Head: Normocephalic, atraumatic ENT: PERRL, EOMI, right superior eyebrow with laceration which has been glued in the ER, no pharyngeal exudate, mucous membranes moist Pulm:: + faint crackles heard on exam at bases bilaterally, on room air with O2 sats 92% Cardiac: Regular rate and rhythm, faint systolic murmur, no JVD, normal peripheral pulses, good capillary refill Abdominal: NABS x 4 quadrants, soft, nondistended, nontender to palpation, no rebound or guarding Extremities: Left shoulder is in a sling, pain with movement, otherwise normal inspection, no peripheral edema or erythema, calfs nontender to palpation Psych: Normal mood and affect Neuro: A&O to person only, intermittent agitation during interview. Strength intact bilaterally and rated 4/5, no motor deficits, speech is clear, no peripheral sensory deficits Discharge Data Allergies Allergy/AdvReac Type Severity Reaction Status Date / Time cephalexin Allergy Mild DIARRHEA Verified 04/06/20 13:19 Consultations 05/21/22 12:25 ED Decision to Admit Stat 05/21/22 13:17 Consult Orthopedic Surgery Routine Ordered Studies 05/21/22 08:59 CT head/brain wo con Stat Hospital Course (1) Fall: (2) Fracture of humeral head, left, closed: (3) Alzheimer's disease: (4) Type 2 diabetes mellitus: (5) Hypertension: (6) Hypercholesterolemia: (7) Esophageal reflux: (8) Stage 4 chronic kidney disease: (9) Vitamin D deficiency: (10) Anxiety: (11) MDD (major depressive disorder): Plan This is an 87 yo F with PMhx of Alzheimer's disease, HTN, DM type II, GERD, MDD and anxiety, diarrhea, who is on hospice care since January 24, 2022 at [facility] who presented after fall. Humerus XR with slightly displaced left humeral head/neck fracture. Was evaluated by orthopedic surgery today and no acute surgical intervention is needed. Arm was placed in sling and should remain there for comfort for the next 4 to 6 weeks. Okay for gentle assisted range of motion at shoulder, elbow and wrist. Continue scheduled Tylenol and ice for pain control. Follow-up with orthopedic clinic in 2 to 4 weeks for repeat x- rays. Plan to return to [facility] today. Discussed plan with son over the phone, who is in favor of patient returning to known environment where she has lived for years. Pain is controlled. hemodynamically stable at time of discharge. Total Time Total Time Spent Total Time Spent (In Minutes): 40 Discharge Plan Discharge Items Patient Disposition: Hospice - Home Reason For Visit: FALL, LEFT HUMERAL HEAD FRACTURE Discharge Diagnosis: FALL, LEFT HUMERAL HEAD FRACTURE Activity: Per Instructions section Non-emergency contact: Primary Care Provider Call non-emergency contact if: you have any medication questions, your symptoms worsen, your pain is not controlled and you have a fever Follow-up/Referrals: [facility] [employer] [employer] [Primary Care Provider] - Diet: Regular Addtl Attending Provider Instructions: You were admitted after a fall and found to have a left humeral head fracture. Per orthopedic surgery, no acute surgical intervention needed. Arm to remain in sling for comfort for the next 4-6 weeks. Okay to come out of sling for gentle assisted range of motion at the shoulder, elbow and wrist. Continue scheduled Tylenol and ice as needed. Follow-up in orthopedic clinic in 2 to 4 weeks for repeat x-rays. Discussed plan with claire Escalante over the phone. Pending Studies at Discharge: No Stand-Alone Forms: My [facility] Medications and DC Order Prescriptions: New acetaminophen [Tylenol Extra Strength] 500 mg Tablet 1,000 mg PO Q8H Qty: 30 0RF Rx Instructions: Take every 8 hours for pain. Continued carvedilol 3.125 mg tablet 3.125 mg PO BID Qty: 60 5RF amlodipine 2.5 mg tablet 2.5 mg PO BID Qty: 60 5RF diazepam 5 mg Kit 5 mg SD Q6H PRN (Reason: anxiety) omeprazole 20 mg capsule,delayed release(DR/EC) 20 mg PO DAILY lorazepam 1 mg Tablet 1 mg PO DAILY PRN (Reason: Anxiety) ipratropium bromide 21 mcg (0.03 %) spray,non-aerosol 1 spray INTRANASAL DAILY potassium chloride 10 mEq tablet,ER particles/crystals 10 meq PO DAILY guaifenesin [Mucinex] 600 mg Tablet Extended Release 12hr 600 mg PO BID PRN (Reason: Cough) loratadine 10 mg Tablet,Chewable 10 mg PO DAILY glipizide 5 mg tablet 15 mg PO BID Discontinued acetaminophen 500 mg tablet 500 mg PO Q6 PRN (Reason: Pain) Qty: 60 0RF Discharge Orders: Discharge Order (Routine); Ordered 05/22/22 Ordered By: Jess Keyes/Other Patient Handouts: Falls Prevent Adjust Living Space Admission Data Admit Date/Time: 05/21/22 12:29 Attending Provider: Steve Goldberg Admit Provider: Mariam Lantigua Primary Care Provider: [facility], [facility] Other Providers: Grover Robbins ; Amaya Romero ; Jess Duran Other Interventions: Discharge Summary Assessment (RN) Last Done: 05/22/22 13:57 Supervising Physician Co-Signing Physician Notes Patient is an 87-year-old female with multiple comorbidities including dementia presents from [facility] after sustaining an unwitnessed fall in the bathroom resulting in mildly displaced fracture of the left humeral neck. Patient is seen and examined this morning. Patient is noted to be not in any distress. She denies any chest pain, shortness of breath. She is oriented to person only. On exam patient is moderately built and nourished, no apparent distress, normocephalic,+ Right forehead laceration, EOMI, normal breath sounds, scattered crackles, S1-S2,+ murmur, no pedal edema, abdomen soft, nontender, mobile nodes, alert, awake, left upper extremity in sling, otherwise grossly no focal deficits. Patient is admitted for management of humeral fracture secondary to fall. Orthopedics was consulted who suggested conservative management. Patient is recommended to use left upper extremity sling for 4 to 6 weeks and to be followed with repeat x-rays as outpatient. I personally reviewed the record. Patient is interviewed and examined at bedside. Patient's care is coordinated with Jess Duran PA-C. Please refer to the documentation above for details of patient's presentation and for discussion of other issues.
--- NOTE | 2022-05-22 15:38 | Orthopedic Progress Note ---
Date of Service May 22, 2022 Assessment & Plan (1) Closed left humeral fracture: No change to plan of care. Okay for discharge for orthopedic concerns. -Will need to remain in sling for comfort, expect she will require this for 4-6 weeks -OK to come out of sling for gentle assisted AROM at the shoulder, elbow, wrist -Pain control w/ periodic ice and tylenol; can consider tramadol if tylenol is not effective in managing her pain. Follow up as an outpatient in 2-4 weeks for repeat X-rays. Subjective Patient seen with her son at the bedside. She endorses pain at the shoulder. Denies any pain at the clavicle. Her son states that she seems a little more "fuzzy" than yesterday, but otherwise ready to go back to [facility]. Review of Systems All systems reviewed & are unremarkable except as noted in HPI & below. Physical Exam LUE: Sling was disheveled but I refit it. She had extensive ecchymosis along from the proximal humerus down to the elbow. Tenderness isolated to the glenohumeral region. No clavicle tenderness. No elbow tenderness. Neurovascular intact to the hand with full motor. Constitutional WD/WN, vitals as above no acute distress and not intoxicated appearing Respiratory normal respiratory effort; no labored breathing Cardiovascular Extremities: normal capillary refill Results & Data Results & Data Laboratory Results . Diagnostic Findings X-rays reviewed at the time of the consult. She has a minimally displaced proximal humerus fracture. Stable for nonoperative treatment. PG Care Time/CCT Total # of Minutes Spent Total Time Spent with Patient: Total time spent is greater than 50% in coordination of care (as documented) at patient's floor/unit and/or counseling patient: Coding Level of Care Code 13671 Subseq Hosp Care Lvl 3 Diagnoses Closed left humeral fracture S42.302A
--- NOTE | 2022-05-22 16:19 | CT Scan Report ---
HEAD CT NONCONTRAST CT DOSE: 1151.75 mGy.cm HISTORY: Confusion. Altered mental status TECHNIQUE: Multiaxial CT images of the head were performed without the use of intravenous contrast. A utomated exposure control was utilized for this study. A dose lowering technique was utilized adheri ng to the principles of ALARA. Comparison: Head CT 05/21/2022. Findings: The paranasal sinuses and mastoid air cells are clear. The calvarium and skull base are int act. There is no mass, hematoma, midline shift, acute infarct. White matter hypodensity is nonspecifi c but suggestive of microvascular ischemic change. The ventricles and sulci demonstrate mild age-rela simona involutional changes. Impression: No acute intracranial abnormality. Atrophy and microvascular ischemic changes. ACT 112: Negative or not required by law. Electronically signed by: Patrick Mayo M.D. 05/22/2022 4:16 PM
== END 2022-05-22 18:55 | disposition hospice, home (50) | DRG 563 ==
LOC: ED 08:49 → INTOOBSV 12:29 → 3W 12:29 → SUATTDRO 12:29 → 3W 17:18